=== PATIENT | female | born 1980 ===

== ENCOUNTER 2021-03-30 23:18 | Emergency (ER) | payer OTHER, SELFPAY ==
[2021-03-31 01:37] VITALS: BP 142/73; PULSE 81; RESP 20; O2SAT 98; BMI 46.8
--- NOTE | 2021-03-31 05:22 | ED.DENTAL ---
HPI - Dental/Oral General Chief complaint: Dental/Oral Stated complaint: jaw swollen, teeth pain Time Seen by Provider: 03/31/21 05:17 Source: patient Mode of arrival: ambulatory Limitations: no limitations History of Present Illness HPI Narrative: Patient comes emergency room complaining of gum pain in the left maxillary side. It has been ongoing for 2 days. Patient denies fever or chills. Related Data Previous Rx's Medication Instructions Recorded clindamycin HCl 300 mg PO TID 7 Days #21 cap 03/31/21 ketorolac 10 mg PO TID PRN 5 Days tab 03/31/21 Allergies Allergy/AdvReac Type Severity Reaction Status Date / Time Penicillins [PENICILLINS] Allergy Unknown UNKNOWN Unverified 07/02/20 19:22 Review of Systems Review of Systems: Constitutional : No Weight loss, No Fever, No Chills, No Night Sweats, No Fatigue, No Malaise ENT/Mouth : No Hearing loss, No Ear Pain, No Nasal Congestion, No Sinus Pain, No Hoarseness, No sore throat, No Rhinorrhea, No Swallowing Difficulty, complaining of dental pain left maxillary side Eyes: No Eye Pain, No Swelling, No Redness, No Foreign Body, No Discharge, No Vision Changes Cardiovascular : No Chest Pain, No SOB, No Dyspnea on Exertion, No Orthopnea, No Edema, No Palpitations Respiratory : No Cough, No Sputum, No Wheezing, No Smoke Exposure, No Dyspnea Gastrointestinal : No Nausea, No Vomiting, No Diarrhea, No Constipation, No abdominal Pain, No Hematochezia, No Melena Genitourinary : no irregular bleeding, No Dysuria, No Urinary Frequency, No Hematuria, No Urinary Incontinence, No Urgency, No Flank Pain, No Urinary Flow Changes, No Hesitancy Musculoskeletal : No joint pain, No Myalgias, No Joint Swelling Skin : No Skin Lesions, No rash Neuro : No Weakness, No Numbness, No Paresthesias, No Loss of Consciousness, No Dizziness, No Headache Psych : No Anxiety/Panic, No Depression, No SI/HI/AH/VH, No Social Issues, Heme/Lymph: No Bruising, No Bleeding,No Lymphadenopathy Endocrine : No Polyuria, No Polydipsia, No Temperature Intolerance PMFSH Past Medical History Medical History Hyperthyroidism Social History Social History Advance Directives: No Advance Directives Information Provided: No Patient : No Physical Exam Vital Signs: Vital Signs: Last Vital Signs Pulse 81 03/31/21 01:37 Resp 20 03/31/21 01:37 BP 142/73 H 03/31/21 01:37 Pulse Ox 98 03/31/21 01:37 Body Mass Index 46.8 Appearance: Alert. Oriented X3. No acute distress. Eyes: Pupils equal, round and reactive to light. ENT: Pharynx normal. Patient has pain to palpation over the gum on the left maxilla, mild swelling, no visualized abscess. Neck: Normal inspection. Neck supple. No lymph nodes noted. No crepitus CVS: Normal heart rate and rhythm. Pulses normal. Normal S1 and S2 Respiratory: No respiratory distress. Breath sounds normal. No Wheezing. No rales Abdomen: Soft and nontender. No rigidity. No distention. good BS x4 Skin: Skin warm and dry. Normal skin color. Normal skin turgor. Extremities: No lower extremity edema. No lower extremity edema. No Lacerations. No Rash Neuro: Oriented X 3. No motor deficit. No sensory deficit. Moving all extermities. No slurred speech. Course Course Course Narrative: Patient was given the 1st dose of antibiotic, clindamycin. Patient is allergic to penicillin. Patient was given IM Toradol. Patient instructed to follow-up with her dentist. Discharge Plan Discharge Clinical Impression: Pain, dental Patient Disposition: Home, Self-Care Instructions: Toothache (ED) Additional Instructions: Please follow-up with your primary care physician tomorrow. If you have any worsening or new symptoms, please return to the emergency room or call 911 Prescriptions: New clindamycin HCl 300 mg capsule 300 mg PO TID 7 Days Qty: 21 RF: 0 ketorolac 10 mg tablet 10 mg PO TID PRN (Reason: pain) 5 Days RF: 0
[2021-03-31] MEDS: Ketorolac Tromethamine 60 MG/2 ML VIAL IM (05:42)
== END 2021-03-31 05:51 | disposition home or self-care (01) ==
PROVIDERS: Emergency Provider Emergency Medicine
DX: K08.89 Other specified disorders of teeth and supporting structures (principal); Z88.0 Allergy status to penicillin
CPT/HCPCS: 96372; 99284; J1885

== ENCOUNTER 2021-12-22 21:28 | Emergency (ER) | payer OTHER, SELFPAY ==
--- NOTE | ~2021-12-22 | XR_ITS ---
EXAMINATION: XR KNEE, LEFT CLINICAL INFORMATION: Fall, knee pain. COMPARISON: None. TECHNIQUE: Two views of the left knee. FINDINGS: Age indeterminate avulsion of the tibial tuberosity. No other fractures. Mild medial compartmental joint space narrowing. Diffuse soft tissue swelling. No joint effusion. No unexpected foreign bodies. XR/XR knee LT 2V IMPRESSION: Age indeterminate avulsion fracture of the tibial tuberosity, correlate for point tenderness.
[2021-12-22 21:31] VITALS: BP 145/88; PULSE 90; RESP 16; TEMP 36.4; O2SAT 98; BMI 48.6
--- NOTE | 2021-12-22 21:40 | ED_ITS ---
HPI - Extremity Injury (Lower) General Chief Complaint: Extremity Injury, Lower Stated Complaint: fall/Knee pain Time Seen by Provider: 12/22/21 21:40 Source: patient Mode of arrival: ambulatory Limitations: no limitations History of Present Illness HPI Narrative: Patient is a 41 year old female presenting to the emergency department today with left knee pain. Patient states that last , on 12/16/2021, she slipped on black ice and landed on her left knee. Patient denies hitting her head in the incident. Patient denies any other injuries in the incident. Patient states that the pain feels achy and rates it at a 4/10. Patient denies any dizziness, lightheadedness, abdominal pain, nausea, vomiting, fever, chills, blurry vision, double vision, loss of vision, chest pain, difficulty breathing, shortness of breath, back pain, night sweats, pain with urination, increased urinary frequency, increased urinary urgency, blood in her urine or stool, syncope or a near syncopal episode, bowel incontinence, bladder incontinence, bowel retention, bladder retention, or any other complaints at this time. MD complaint: knee injury Onset (ago): day(s) (5) Injury: Left: knee Type of Injury: blunt Place: home Severity: mild Severity scale (1-10): 4 Relieving factors: nothing Exacerbating factors: nothing Context: fall and direct blow Other symptoms: none Related Data Previous Rx's Medication Instructions Recorded clindamycin HCl 300 mg capsule 300 mg PO TID 7 Days #21 cap 03/31/21 ketorolac 10 mg tablet 10 mg PO TID PRN 5 Days tab 03/31/21 Allergies Allergy/AdvReac Type Severity Reaction Status Date / Time Penicillins [PENICILLINS] Allergy Unknown UNKNOWN Unverified 07/02/20 19:22 Review of Systems Constitutional: Constitutional: Reports no additional constitutional complaints, Denies chills, Denies fever(s) and Denies night sweats Eyes: Eyes: Reports no additional eye complaints, Denies blurry vision, Denies change in vision, Denies diplopia, Denies eye discharge, Denies loss of vision and Denies eye pain ENT: Denies dizziness Cardiovascular: Cardiovascular: Reports no additional cardiovascular complaints, Denies chest pain, Denies lightheadedness, Denies Loss of Consciou sness and Denies dyspnea Respiratory: Respiratory: Reports no additional respiratory complaints and Denies dyspnea Gastrointestinal: Gastrointestinal: Reports no additional gastrointestinal complaints, Denies abdominal pain, Denies melena, Denies hematochezia, Denies change in bowel habits and Denies change in stool character Genitourinary: Genitourinary: Denies hematuria, Denies urinary frequency, Denies dysuria, Denies urinary incontinence, Denies urinary hesitancy and Denies urinary urgency Musculoskeletal: Musculoskeletal: Reports no additional musculoskeletal complaints, Denies numbness and Denies tingling Comments: left knee pain Neurologic: Denies dizziness, Denies loss of vision, Denies numbness and Denies tingling Psychiatric: Psychiatric: Reports no additional psychiatric complaints Endocrine: Endocrine: Reports no additional endocrine complaints Hematologic/Lymphatic: Hematologic/Lymphatic: Reports no additional hemat ologic/lymphatic complaints Allergic/Immunologic: Allergic/Immunologic: Reports no additional allergic/immunologic complaints [facility] Past Medical History Attestation statement: The following information was validated with the patient. Medical History Hyperthyroidism Social History Social History Alcohol intake: unknown Patient Tobacco Use Status: Former Tobacco user Advance Directives: No Advance Directives Information Provided: No Patient : No Physical Exam Vital Signs: Vital Signs: Last Vital Signs Temp 97.5 F 12/22/21 21:31 Pulse 84 12/22/21 21:50 Resp 16 12/22/21 21:50 BP 128/82 12/22/21 21:50 Pulse Ox 100 12/22/21 21:50 BMI result Body Mass Index 48.6 Const: General: cooperative, no acute distress, alert and awake Nutritional Appearance: well nourished Orientation/consciousness: patient oriented x3 Limitations: no limitations HENMT: Head: Yes normal to inspection and Yes atraumatic Ears: hearing grossly normal bilaterally and external ears normal General nose exam: Normal external nose present, no nasal discharge noted and no epistaxis Face and sinus: Yes normal facial exam, No abrasion and No laceration Mouth: Normal oral and palatal mucosa present, no drooling and no muffled voice Eyes: General: appearance normal, both eyes and all related structures Periorbital: periorbital findings normal Eyelids: Yes eyelids normal Conjunctivae: conjunctivae normal Pupils: Equal, round and reactive pupils present EOM: EOMs intact bilaterally Neck: Neck: Yes normal visual inspection, Yes full ROM and Yes no lymphadenopathy Chest: Chest palpation & inspection: normal inspection of the chest Resp: Effort & Inspection: normal respiratory effort and able to speak in complete sentences GI: Inspection: Yes normal to inspection Neuro: General: patient oriented x3 and moves all extremities Cranial nerves: Yes Equal, round and reactive pupils present Cognition (Neuro): normal cognition Motor exam (neuro): 5/5 motor strength present throughout Sensory Exam: Normal double simultaneous stimulation for sensation Coordination: [id number] test normal Extrem: Other: tenderness to palpation of the lateral left knee General: Yes normal to inspection, Yes full ROM and Yes capillary refill normal Psych: Appearance: grossly normal Mental Status: mental status grossly normal Affect: normal affect Attitude: cooperative Thought process: Normal thought process present Thought content: Normal thought content present Insight: Good insight present (Psych) MDM - Extremity Injury (Lower) MDM Narrative Medical decision making narrative: Patient is a 41 year old female presenting to the emergency department today with left knee pain. Patient's physical exam showed tenderness to palpation of the left lateral knee but was otherwise unremarkable. Patient's ROM, circulation, and sensation were intact to the left lower extremity. Patient's left knee x-ray showed a tibial avulsion fracture. I explained my physical exam findings as well as all test results to the patient. I answered all questions asked by the patient. Patient was placed in a left knee immobilizer and trained to use crutches, without incident. Patient's PMS was intact prior to and after the immobilizer placement. I stressed the importance of the patient taking her medication as prescribed. I stressed the importance of the patient following up with her primary care provider and an orthopedic provider. I stressed the importance of the patient returning to the emergency department immediately if her symptoms were to worsen or if she were to develop any dizziness, shortness of breath, difficulty breathing, chest pain, blurry vision, loss of vision, nausea, vomiting, abdominal pain, fever, chills, back pain, or any other complaints. Patient verbalized agreement and understanding with this treatment plan and discharge. Differential Diagnosis Differential diagnosis: Likely acute internal derangement of knee (tibial fracture) and fracture of femur Medical Records Attestation: I reviewed the patient's medical records. Imaging Data Left knee x-ray: Attestation: I personally reviewed and interpreted this imaging study as follows: Radiologist's impression: EXAMINATION: XR KNEE, LEFT CLINICAL INFORMATION: Fall, knee pain.? COMPARISON: None.? TECHNIQUE: Two views of the left knee. FINDINGS: Age indeterminate avulsion of the tibial tuberosity. No other fractures. Mild medial compartmental joint space narrowing. Diffuse soft tissue swelling. No joint effusion. No unexpected foreign bodies XR/XR knee LT 2V IMPRESSION: Age indeterminate avulsion fracture of the tibial tuberosity, correlate for point tenderness. ? Dictated By: Samra Alford Signed By: Electronically signed by Samra? Rocío 12/22/21 2220 Procedures Orthopedic Splinting/Casting Injury #1: Side: left Lower Extremity Injury Location: knee Lower Extremity Immobilizer: knee immobilizer Other Orthopedic Equipment: crutches Discharge Plan Discharge Clinical Impression: Closed tibial fracture Patient Disposition: Home, Self-Care Instructions: Leg Fracture (ED), Crutch Instructions (ED) Additional Instructions: Call to schedule a follow up appointment with an Orthopedic provider. Follow up with your primary care provider. Return to the emergency department immediately if your symptoms worsen or if you develop any dizziness, shortness of breath, difficulty breathing, chest pain, blurry vision, loss of vision, nausea, vomiting, abdominal pain, fever, chills, back pain, or any other complaints. Prescriptions: No Action clindamycin HCl 300 mg capsule 300 mg PO TID 7 Days Qty: 21 0RF ketorolac 10 mg tablet 10 mg PO TID PRN (Reason: pain) 5 Days 0RF Rx Instructions: Do not use ibuprofen with this medication, only Tylenol if needed. Referrals: Eugene Henson MD [Physician] - 2 days Physician,Mark Donovan [Primary Care Provider] - 2 days (Follow up with your PCP.) Stand Alone Forms: Work/School Release Print Language: Turkish
[2021-12-22 21:50] VITALS: BP 128/82; PULSE 84; RESP 16; O2SAT 100
== END 2021-12-22 22:42 | disposition home or self-care (01) ==
PROVIDERS: Emergency Provider Emergency Medicine Emergency Medical Services
DX: S82.202A Unspecified fracture of shaft of left tibia, initial encounter for closed fracture (principal); W00.0XXA Fall on same level due to ice and snow, initial encounter; Y93.9 Activity, unspecified; Y92.410 Unspecified street and highway as the place of occurrence of the external cause; Y99.9 Unspecified external cause status; Z79.899 Other long term (current) drug therapy; Z87.891 Personal history of nicotine dependence
CPT/HCPCS: 29505; 73560; 99283

== ENCOUNTER → 2021-12-27 12:46 | Outpatient (BNVA) | payer OTHER, SELFPAY | PROVIDERS: Visit Provider Physician Assistant | DX: S80.02XA Contusion of left knee, initial encounter (principal) | CPT/HCPCS: 99202 ==

== ENCOUNTER 2022-01-17 11:59 | Outpatient (REF) | payer OTHER, SELFPAY | END 2022-01-17 12:00 | disposition home or self-care (01) | LOC: HO.HOSX 11:59 | PROVIDERS: Visit Provider Physician Assistant | DX: Z13.89 Encounter for screening for other disorder (principal) ==

== ENCOUNTER 2022-01-24 08:42 | Outpatient (REF) | payer OTHER, SELFPAY | END 2022-01-24 08:43 | disposition home or self-care (01) | LOC: HO.HOSX 08:42 | PROVIDERS: Visit Provider Physician Assistant | DX: Z13.89 Encounter for screening for other disorder (principal) ==

== ENCOUNTER 2022-02-07 08:14 | Outpatient (REF) | payer OTHER, SELFPAY | END 2022-02-07 08:15 | disposition home or self-care (01) | LOC: HO.HOSX 08:14 | PROVIDERS: Visit Provider Physician Assistant | DX: Z13.89 Encounter for screening for other disorder (principal) ==

== ENCOUNTER → 2022-08-22 13:03 | Outpatient (BNVA) | payer OTHER, SELFPAY | PROVIDERS: PCP Internal Medicine; Visit Provider Physician Assistant | DX: Z11.0 Encounter for screening for intestinal infectious diseases (principal); E66.01 Morbid (severe) obesity due to excess calories; E05.90 Thyrotoxicosis, unspecified without thyrotoxic crisis or storm; E16.2 Hypoglycemia, unspecified; D35.2 Benign neoplasm of pituitary gland; F31.9 Bipolar disorder, unspecified; G47.33 Obstructive sleep apnea (adult) (pediatric); F41.9 Anxiety disorder, unspecified; F32.A Depression, unspecified; Z99.89 Dependence on other enabling machines and devices; Z68.43 Body mass index [BMI] 50.0-59.9, adult | CPT/HCPCS: 83013; 99202; 99211; 99212 ==

== ENCOUNTER 2022-08-22 16:24 | Outpatient (REF) | payer OTHER, SELFPAY ==
[2022-08-24 12:48] LABS: H Pylori Breath Test Negative (Negative)
== END 2022-08-22 16:25 | disposition home or self-care (01) ==
LOC: HO.LNP 16:24
PROVIDERS: Visit Provider Physician Assistant
DX: Z13.89 Encounter for screening for other disorder (principal)
CPT/HCPCS: 83013

== ENCOUNTER → 2022-10-26 14:47 | Outpatient (BNVA) | payer OTHER, SELFPAY | PROVIDERS: PCP Internal Medicine; Referring Provider Internal Medicine; Visit Provider Physician Assistant | DX: E66.01 Morbid (severe) obesity due to excess calories (principal); Z68.42 Body mass index [BMI] 45.0-49.9, adult; G47.33 Obstructive sleep apnea (adult) (pediatric); F31.9 Bipolar disorder, unspecified; Z99.89 Dependence on other enabling machines and devices | CPT/HCPCS: 99212 ==

== ENCOUNTER 2022-10-28 08:20 | Outpatient (REF) | payer OTHER, SELFPAY ==
--- NOTE | ~2022-10-28 | XR_ITS ---
EXAMINATION: XR CHEST CLINICAL INFORMATION: Morbid obesity. COMPARISON: Chest x-ray 08/22/2019 TECHNIQUE: 2 views of the chest were obtained. FINDINGS: No significant abnormality is noted involving the heart, lungs, mediastinum, bony thorax or soft tissues. XR/XR chest 2V IMPRESSION: Unremarkable examination.
--- NOTE | 2022-10-28 08:26 | ECG_ITS ---
Test Reason : OBESITY Blood Pressure : / mmHG Vent. Rate : 101 BPM Atrial Rate : 101 BPM P-R Int : 164 ms QRS Dur : 094 ms QT Int : 360 ms P-R-T Axes : 055 110 012 degrees QTc Int : 466 ms Sinus tachycardia Right axis deviation Abnormal ECG When compared with ECG of 27-NOV-2017 05:27, Premature ventricular complexes are no longer Present Vent. rate has increased BY 36 BPM QRS axis Shifted right Referred By: Margaret Blevins Electronically Signed By:Dangelo Abrams
[2022-10-28 08:40] LABS: MANUAL DIFF FLAG NO
[2022-10-28 09:14] LABS: Basophils Absolute Auto 0.1 X10*3/uL (0.0-0.2); Basophils Percent Auto 1.6 % (0-2); Eosinophils Absolute Auto 0.2 X10*3/uL (0.0-0.4); Eosinophils Percent Auto 2.8 % (0-4); Hematocrit 41.5 % (37.0-47.0); Hemoglobin 13.3 g/dl (12.0-16.0); Imm Gran Abs Auto 0.03 X10*3/uL (0.00-0.03); Imm Gran Pct Auto 0.4 % (0.0-0.4); Mean Corpuscular Hemoglobin 28.5 pg (27.0-33.0); Mean Corpuscular Volume 89.1 fL (80.0-98.0); Mean Platelet Volume 10.3 fL (9.4-12.3); Monocytes Absolute Auto 0.5 X10*3/uL (0.1-1.2); Monocytes Percent Auto 6.6 % (2-11); Neutrophils Absolute Auto 5.1 x10*3/uL (2.0-8.3); Neutrophils Percent Auto 63.6 % (45-73); Platelet Count 306 X10*3/uL (160-400); Red Blood Count 4.66 X10*6/uL (4.20-5.50); Red Cell Distribution Width 13.7 % (11.0-16.0); White Blood Count 7.9 X10*3/uL (4.8-10.8)
[2022-10-28 09:22] LABS: Estimated Average Glucose 128 mg/dL; Hemoglobin A1C 148.9232 umol/L; Hemoglobin A1c % 6.1 %
[2022-10-28 09:42] LABS: Alanine Aminotransferase 35 U/L (0-31); Albumin Level 4.5 g/dL (3.5-5.0); Alkaline Phosphatase 90 U/L (39-117); Anion Gap 17 (12-20); Aspartate Amino Transferase 27 U/L (5-31); Bilirubin Total 0.5 mg/dL (0.0-1.0); Blood Urea Nitrogen 15 mg/dL (9-16); C Reactive Protein 0.85 mg/dL (< or = 0.50); Calcium 9.6 mg/dL (8.4-10.2); Carbon Dioxide 25 mmol/L (22-29); Chloride 100 mmol/L (96-108); Cholesterol 264 mg/dL; Estimated Glomerular Filt Rate 58; Glucose Random 110 mg/dL (60-115); HDL Cholesterol 64 mg/dL; Iron 77 mcg/dL (30-160); LDL Cholesterol Calculated 174 mg/dl; Percent Iron Saturation 25 % (15-50); Potassium 4.5 mmol/L (3.3-5.1); Sodium 137 mmol/L (135-145); Total Iron Binding Capacity 308 mcg/dL (228-428); Total Protein 7.9 g/dL (6.5-8.0); Triglycerides 130 mg/dL; Unsaturated Iron Binding 231 ug/dL
[2022-10-28 10:03] LABS: Ferritin 106 ng/mL (10-250); Insulin 24 uU/mL (2-29); Vitamin D 25-OH Total 17.5 ng/mL (>30)
[2022-10-28 10:09] LABS: Folate 14.8 ng/mL (> or = 4.0); Vitamin B12 754 pg/mL (200-900)
[2022-10-31 13:24] LABS: Calcium (PTHI) 9.7 mg/dL (8.6-10.2); PTHI 91 pg/mL (16-77)
[2022-11-01 15:18] LABS: Zinc 79 mcg/dL (60-130)
[2022-11-03 08:48] LABS: Vitamin A 53 mcg/dL (38-98)
[2022-11-04 12:58] LABS: Vitamin B1 14 nmol/L (8-30)
== END 2022-10-28 08:21 | disposition home or self-care (01) ==
LOC: HO.LAB 08:20
PROVIDERS: Visit Provider Physician Assistant
DX: E66.01 Morbid (severe) obesity due to excess calories (principal); E05.90 Thyrotoxicosis, unspecified without thyrotoxic crisis or storm; E16.2 Hypoglycemia, unspecified; D35.2 Benign neoplasm of pituitary gland; F31.9 Bipolar disorder, unspecified; G47.33 Obstructive sleep apnea (adult) (pediatric); Z99.89 Dependence on other enabling machines and devices
CPT/HCPCS: 36415; 71046; 80053; 80061; 82306; 82607; 82728; 82746; 83036; 83525; 83540; 83970; 84425; 84443; 84590; 84630; 85025; 86140; 93005

== ENCOUNTER → 2022-11-03 10:52 | Outpatient (REF) | payer OTHER, SELFPAY ==
--- NOTE | 2022-11-03 10:56 | CA_ITS ---
Transthoracic Echocardiogram Patient (Last, First, Middle): Sulma Peres, Gender: Female Date of : 1980 Age: 42 Procedure Date: 11/03/2022 Procedure Type: Transthoracic Echocardiogram Location: OP Height: 172.72 cm Weight: 141.98 kg BSA: 2.47 m2 Heart Rate: bpm BP: 125 / 70 mmHg Marina Porter: TRINITY Sykes MD: Margaret Blevins PA-C E Business Manager: Scooter Carias MD Symptoms: R94.31 - Abnormal electrocardiogram [ECG] [EKG] Study Quality: Technically Difficult, contrast ECG Rhythm: Sinus Conclusions: - 1. Normal LV systolic function and diastolic function 2. Limited visualization of cardiac valves with normal cardiac valvular Dopplers 3. No gross pericardial effusion Findings Procedure Information Contrast agent, definity, is being given per protocol without apparent complications. Left Ventricle Normal left ventricular size, thickness, and systolic function. The visually estimated ejection fraction is between 55-60%. Spectral Doppler is indicative of a normal filling pattern. Right Ventricle The right ventricle was not well visualized. Atria The left atrium is normal in size. Interatrial shunt cannot be excluded. The right atrium was not well visualized. Aortic Valve The aortic valve was not well visualized. There is no aortic valve stenosis. There is no aortic valve regurgitation. Mitral Valve There is mild anterior mitral leaflet thickening. There is trace mitral valve regurgitation. There is no mitral valve stenosis. Pulmonic Valve The pulmonic valve was not well visualized. Tricuspid Valve The tricuspid valve was not well visualized. Tricuspid regurgitation envelope is inadequate for calculation of right ventricular systolic pressure. Great Vessels The aorta was not well visualized. The pulmonary artery was not well visualized. Venous The inferior vena cava is normal in size and collapses greater than 50% with inspiration. Pericardium/Pleural There is no evidence of pericardial effusion. Prior Study Comparison No prior study available for comparison. Measurements 2D Linear Measurements IVSd: 1.21 0.6-0.9/0.6-1.0 cm LVIDd: 5.77 3.9-5.3/4.2-5.9 cm LVIDd Index: 2.34 2.4-3.2/2.2-3.1 cm/m2 LVIDs: 3.59 2.0-3.6 cm LVPWd: 1.14 0.7-1.1 cm LA Diam: 3.50 2.7-3.8/3.0-4.0 cm LAIDs Index: 1.42 1.5-2.3 cm/m2 LV Mass: 357.02 67-162/88-224 g LV Mass Index: 144.54 43-95/49-115 g/m2 LVOT Diam: 2.40 3.0+(-)1.3 cm 2D Systolic Function EF 4C: 56.20 >55% EF 2C: 55.40 >55% Mitral Valve MV Pk E: 0.64 MV PK A: 0.61 MV Decel Time: 226.00 E/A: 1.00 E'Lateral: 7.40 E'Medial: 4.90 E/E' Med: 13.00 E/E' Lat: 8.60 PHT: 66.00 MVA PHT: 3.33 Decel Dickens: 2.83 Aortic Valve AoV Pk Nii: 1.32 AoV Mn Nii: 0.89 AoV VTI: 0.26 AoV Pk Grad: 7.00 Aov Mn Grad: 4.00 CHRISTOPHER Cont.VTI: 2.84 LVOT LVOT Pk Nii: 0.80 LVOT Mn Nii: 0.53 LVOT VTI: 0.16 LVOT Pk Grad: 3.00 LVOT Mn Grad: 1.00 LVOT Diam: 2.40 LVOT Area: 4.52 Diastolic Function MV Pk E: 0.64 MV Pk A: 0.61 E/A: 1.00 E'Medial: 4.90 E/E' Med: 13.00 E' Laterial: 7.40 E/E' Lat: 8.60 Right Ventricle TAPSE (mm): 21.90 TVS' Nii: 10.30 Great Vessels Aorta Sinus of Valsalva: 3.26 2.0-3.[address] [place]: 2.91 1.7-3.4 cm Ao Asc: 3.00 2.1-3.4 cm Updated in Other Vendor System with Status of Final Scooter Carias MD electronically signed on 11/03/2022 4:21:36 PM with status of Final
== END ==
LOC: HO.CARD 10:52
PROVIDERS: Visit Provider Physician Assistant
DX: Z01.818 Encounter for other preprocedural examination (principal); R06.02 Shortness of breath; R94.31 Abnormal electrocardiogram [ECG] [EKG]
CPT/HCPCS: 93306; Q9957

== ENCOUNTER 2023-04-10 10:42 | Outpatient (REF) | payer OTHER, SELFPAY ==
--- NOTE | ~2023-04-10 | XR_ITS ---
EXAMINATION: XR HAND, RIGHT CLINICAL INFORMATION: Primary osteoarthritis, unspecified hand COMPARISON: None available. TECHNIQUE: PA, lateral, and oblique views of the right hand. FINDINGS: No acute fracture or dislocation. There is IP joint space narrowing and MCP joint space narrowing particularly at the first and fifth digits. No erosive process seen. Carpus grossly intact. Minimal ossicle adjacent to the lateral aspect of the scaphoid on one view. XR/XR hand RT min 3V IMPRESSION: No acute process. Degenerative changes as described.
== END 2023-04-10 10:43 | disposition home or self-care (01) ==
LOC: HO.HMGCX 10:42
PROVIDERS: PCP Internal Medicine; Visit Provider Internal Medicine
DX: M19.041 Primary osteoarthritis, right hand (principal)
CPT/HCPCS: 73130

== ENCOUNTER → 2023-05-17 09:00 | Outpatient (BNV) | payer OTHER, SELFPAY | PROVIDERS: Visit Provider Psychiatry & Neurology Psychiatry | DX: F43.10 Post-traumatic stress disorder, unspecified (principal); F31.81 Bipolar II disorder | CPT/HCPCS: 90792; 99213 ==

== ENCOUNTER 2023-05-26 08:15 | Outpatient (RCR) | payer OTHER, SELFPAY ==
[2023-05-15 13:13] VITALS: BP 126/64; PULSE 74; TEMP 36.3
[2023-05-15 13:16] VITALS: BMI 50.8
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
--- NOTE | 2023-05-18 15:49 | HO.PHP ---
Clients case was reviewed and opened today in treatment team.
[2023-05-19 09:31] VITALS: BP 110/70; PULSE 92
--- NOTE | 2023-05-19 13:51 | P.PNPSP_ITS ---
Subjective Subjective Date of Service: 05/19/23 Reason For Visit: bipolar II Medical Problems Affecting Mental Status: No Interim History: As per evaluation 05/17/23: Presents with clear history of bipolar 2 disorder currently major depressive episode.? Also comorbid PTSD.? There is significant sleep disturbance and PTSD symptoms.? Would benefit from trazodone 150 mg at bedtime and prazosin 1 to 2 mg at bedtime.? We will send a 5-day prescription and follow-up on 05/19/2023 regarding same.? To treat underlying cause we will increase Zoloft to 100 mg for depression and PTSD and Trileptal to 300 mg to prevent any mood destabilization. Today, reports that trazodone 150 mg and prazosin 1 mg at bedtime has been very helpful. Slept through the night and no nightmares. Overall feeling more rested, but slightly groggy. Tolerating Zoloft 100 mg and Trileptal 300 mg. Overall we discussed maintaining current regimen of increased Zoloft, increased Trileptal and newly added trazodone and prazosin. If grogginess continues, may either lower trazodone or lower Trileptal dose. We will send 30-day prescription for trazodone and prazosin as patient will run out of same after the weekend. Medication Compliance: Yes Side effects from medications: No Attending Groups: Yes Review of Systems Acute medical concerns: No Review of Systems Review of Systems Yes all other systems are reviewed and are negative Mental Status Exam Mental Status Exam Narrative: Pleasant. Engaged. Fairly presented. Much brighter affect today. No SI. No HI. No agitation. Less psychomotor retardation. No psychosis. Insight and judgment good Diagnostics Vital Signs (24Hr): Vital Signs - 24 hr 05/19/23 09:31 Pulse Rate 92 Blood Pressure 110/70 BMI result Body Mass Index 50.8 Assessment & Plan Assessment & Plan (1) PTSD (post-traumatic stress disorder): Status: Acute Code(s): F43.10 - Post-traumatic stress disorder, unspecified (2) Bipolar 2 disorder, major depressive episode: Status: Acute Code(s): F31.81 - Bipolar II disorder Plan Today, reports that trazodone 150 mg and prazosin 1 mg at bedtime has been very helpful. Slept through the night and no nightmares. Overall feeling more rested, but slightly groggy. Tolerating Zoloft 100 mg and Trileptal 300 mg. Overall we discussed maintaining current regimen of increased Zoloft, increased Trileptal and newly added trazodone and prazosin. If grogginess continues, may either lower trazodone or lower Trileptal dose. We will send 30-day prescription for trazodone and prazosin as patient will run out of same after the weekend. Patient educated on: medication risk/benefits and therapeutic strategies Informed Consent: understands Reason for contiued partial hosp. stay Substantial Risk for: rapid decompensation Certification I certify that partial hospital treatment is medically necessary due to the symptoms and problems resulting from the patient's mental illness and the failure to treat the patient at the partial hospital level of care would likely result in the patient requiring inpatient psychiatric care which could not be prevented at a less intensive level of care. Total time managing care of this patient today 20 minutes. Discharge Plan Discharge Attending provider: Geovany Daniel Medications: New prazosin 1 mg Capsule 1 - 2 mg PO BEDTIME 5 Days Qty: 10 0RF Protocol: Hold for SBP< HOLD for SBP < : 90 trazodone 150 mg tablet 150 mg PO BEDTIME 5 Days Qty: 5 0RF No Action hydroxyzine pamoate 50 mg capsule 50 mg PO BID PRN (Reason: Anxiety) Patient Comments: Last filled 10/04/22. Patient stated she continues to take it PRN. albuterol sulfate [ProAir HFA] 90 mcg/actuation HFA aerosol inhaler 2 puff INHALATION QID PRN (Reason: wheezing) sertraline 50 mg tablet 50 mg PO DAILY fluticasone propionate [Flovent HFA] 110 mcg/actuation HFA aerosol inhaler 1 puff INHALATION BID oxcarbazepine [Trileptal] 150 mg tablet 150 mg PO BID Patient Comments: Patient only taking once a day. Medication education provided. methimazole 10 mg tablet 10 mg PO DAILY Patient Comments: Patient reports she has not taken for 2-3 months. She called in a new prescription filled today on 05/15/23. Telehealth Telehealth Location of provider rendering services: other ([facility]) Location of patient: other ([facility]) Patient Identification confirmed using: Name, : Yes Telehealth method: video Patient verbally consented to treatment: Yes Minutes spent on Phone/Video with Pt.: 15
--- NOTE | 2023-05-23 14:30 | HO.PHP ---
[facility] staff contacted Sulma due to her not showing up for the last group of the day. Sulma had apologized and mentioned that she is safe but had to leave due to a family medical emergency at home. Sulma voiced that she will be at program tomorrow. [facility] staff was receptive.
--- NOTE | 2023-05-25 09:26 | PC.NURSE ---
Sulma is not in today as she has an appointment with the Recycling Specialist. She plans on being in the program tomorrow.
--- NOTE | 2023-05-26 14:20 | HO.PHP ---
PHP staff contacted Sulma's OP therapist to inform her that Sulma discharged from services.
== END 2023-05-26 23:59 | disposition home or self-care (01) ==
LOC: HO.PHPA 08:15
PROVIDERS: Visit Provider Psychiatry & Neurology Psychiatry
DX: F31.81 Bipolar II disorder (principal); F41.1 Generalized anxiety disorder
CPT/HCPCS: 90791; 90853

== ENCOUNTER → 2023-10-20 13:15 | Outpatient (BNV) | payer OTHER, SELFPAY | PROVIDERS: Visit Provider Psychiatry & Neurology Psychiatry | DX: F31.81 Bipolar II disorder (principal); F41.1 Generalized anxiety disorder; F41.0 Panic disorder [episodic paroxysmal anxiety]; F43.10 Post-traumatic stress disorder, unspecified | CPT/HCPCS: 90792; 99213 ==

== ENCOUNTER 2023-10-24 13:00 | Outpatient (RCR) | payer OTHER, SELFPAY ==
--- NOTE | 2023-10-05 14:43 | HO.PHP ---
The client's case was reviewed and opened in treatment team.
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
[2023-10-06 11:36] VITALS: BMI 50.2
[2023-10-06 12:37] VITALS: BP 137/95; PULSE 81; TEMP 36.7
--- NOTE | 2023-10-06 15:33 | PC.ADMIT ---
Patient is a 43 year old female who was referred to [facility] by her therapist d/t increased depression and anxiety. 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 She has a trauma history and feels she is being triggered at work and this is new for her as she has been able to handle this in the past. Also stated she is feeling overwhelmed at home as her has neuropathy and uses a cane and falls at times. She is working on getting him a VNA and SALES COACH as he has had this in the past which was helpful. Patient had a recent hospitalization at [facility] after she initially self presented to the ER with depression and SI with a plan to overdose at the time. She was discharged from the unit on 10/02/23. Patient is alert and oriented x4. Calm and cooperative. Presented with depressed and anxious mood. Reports history of self harm by cutting her leg superficially and reports the last time she cut herself was prior to inpatient LOC. Denied SI or thoughts to harm herself. She was given a copy of her safety plan if needed. Medications reconciled with patient, [facility] in patient discharge medication list, patient's pharmacy. Confirmed with Dr Cooper medication changes that she made with patient yesterday. Patient reports she uses ETOH on occasion. Report drinking 1-8 beers and rarely will drink up to 8 beers and Wine 1-5 and rarely reports she has up to 5 drinks.
--- NOTE | 2023-10-10 10:32 | HO.PHP ---
Client did not show up for programming today. Pt was called at her home number to assess for safety at roughly 9:35, there was no answer. A voicemail was left informing pt of protocol and to call back within 15 minutes to check in, [facility] phone number was provided. Pt did not call back. Pt was called again at roughly 9:50, still no answer so pt's emergency contact, Ann Garay (pt's mother) was called. Ann did not answer, a voicemail was left requesting she please contact Sulma and to respond back to [facility] within 15 minutes. Pt's emergency contact did not respond to the voicemail. At roughly 10:10, this typewriter assembler contacted the [place] [employer] to do a wellness check to her residence, [address] [place] [address] [place] [address].
--- NOTE | 2023-10-10 14:07 | HO.PHP ---
[facility] Police contacted by headline writer at 12:30pm to follow-up on the wellness check for Sulma. Informed that Pt was at home during the wellness check and visual contact was made, [facility] police reports Sulma was safe and stated she forgot to call the program this morning. Automatic Wheel Line Operator called pt again at 2:05 pm to confirm her attendance for tomorrow and reminded of attendance policy. Pt reports she had a stomach bug but she is feeling better and will be in tomorrow.
--- NOTE | 2023-10-19 09:34 | PC.NURSE ---
Sulma did not show up to the program this morning. I called Sulma and she stated she is going to the hospital as she tripped on the stairs and hurt her hand. She stated he mother is going to bring her. She plans on coming to the program tomorrow.
--- NOTE | 2023-10-20 20:10 | HO.PHPPROGNO ---
Subjective Subjective Date of Service: 10/20/23 Reason For Visit: bipolar Interim History: Patient seen for follow-up today. No acute issues or concerns, She reports benefitting from addition of quetiapine 25 mg BID which she has been taking regularly in AM and afternoon. I feel better less anxiety. At it's worse, somatic anxiety at a 4 out of 10, before was at an 8. She denies any panic attacks, last one over a month ago. She currently denies any worries. MOod is good, denies any depressive symptoms, hopelessness or SI. Can not recall last SI thoughts. Sleep intact at 7 or 8 hours. Tolerating prazosin 1 mg, denies any sleep disturbance. Energy is good. Occasionally takes trazodone 100 mg for sleep about 3x/month only. Continues on Trileptal 150 mg BID, Zoloft 100 mg qd, prazosin. Med compliant, denies any adverse effects. Drinks alcohol socially in moderation, denies substance use. She is unsure of date of upcoming psych provider appointemnt, her provider is currently on vacation but believes it is in October. She will try calling the office today to get appointment set. Medication Compliance: Yes Side effects from medications: No Attending Groups: Yes Review of Systems Acute medical concerns: No Mental Status Exam Mental Status Exam Narrative: Pleasant. Engaged. Groomed. Cooperative. superificial. No neuromotor retardation or agitation. Mood improved, brighter affect today. No SI. No HI. Insight and judgment fair but adequate Diagnostics Vital Signs (24Hr): BMI result Body Mass Index 50.2 Assessment & Plan Assessment & Plan (1) Bipolar 2 disorder, major depressive episode: Status: Acute Code(s): F31.81 - Bipolar II disorder (2) Generalized anxiety disorder with panic attacks: Status: Acute Code(s): F41.1 - Generalized anxiety disorder; F41.0 - Panic disorder [episodic paroxysmal anxiety] (3) PTSD (post-traumatic stress disorder): Status: Acute Code(s): F43.10 - Post-traumatic stress disorder, unspecified Plan tolerating and benefitting from Seroquel at 25 mg BID scheduled she has not been utilizing PRN hydroxyzine, minimal amount of trazodone at 100 mg may consider d/c the hydroxyzine, trazodone w OP provider to limit polypharm trazodone 150, prazosin have been discont continue other regular medications continue to monitor anticipate discharge Monday Patient educated on: diagnosis and medication risk/benefits Informed Consent: understands Reason for contiued partial hosp. stay Substantial Risk for: med/psych decompensation Certification I certify that partial hospital treatment is medically necessary due to the symptoms and problems resulting from the patient's mental illness and the failure to treat the patient at the partial hospital level of care would likely result in the patient requiring inpatient psychiatric care which could not be prevented at a less intensive level of care. Total time managing care of this patient today __30__ minutes. Discharge Plan Discharge Attending provider: Lisa Cooper Medications: New quetiapine 25 mg tablet 25 mg PO BID 30 Days Qty: 60 0RF trazodone 100 mg tablet 100 mg PO BEDTIME PRN (Reason: sleep) Qty: 14 0RF Continued hydroxyzine pamoate 50 mg capsule 50 mg PO TID PRN (Reason: Anxiety) Patient Comments: Last filled 10/04/22. Patient stated she continues to take it PRN. fluticasone propionate [Flovent HFA] 110 mcg/actuation HFA aerosol inhaler 1 puff INHALATION BID metformin 500 mg tablet extended release 24 hr 1,000 mg PO BID sertraline 100 mg tablet 100 mg PO DAILY 30 Days Qty: 30 0RF oxcarbazepine [Trileptal] 150 mg tablet 150 mg PO BID 15 Days Qty: 30 0RF methimazole 10 mg tablet 10 mg PO DAILY Patient Comments: Patient reports she takes daily. Discontinued prazosin 1 mg capsule 1 mg PO BEDTIME 30 Days Qty: 30 0RF trazodone 150 mg tablet 150 mg PO BEDTIME 30 Days Qty: 30 0RF Patient Comments: Patient stated she takes prn. Dr. Cooper aware. No Action melatonin 3 mg tablet 3 mg PO BEDTIME PRN (Reason: insomnia)
--- NOTE | 2023-10-23 09:22 | PC.NURSE ---
Sulma did not show up to the program this morning. I called Sulma, she did not answer her phone. I was not able to leave a message and her VM has not been set up. I spoke to Sulma's emergency contact, her mother Ann, who stated she will give her a call and have her call me when she gets a hold of her. Ann stated she spoke to Zahraa yesterday and she went to voodoo over the weekend.
--- NOTE | 2023-10-23 10:10 | PC.NURSE ---
Sulma's mother Ann called me back and stated she spoke to Sulma who stated she overslept today. Stated the medication makes her groggy. I told Ann to have Sulma call me and she stated she would.
--- NOTE | 2023-10-24 23:11 | HO.PHPPROGNO ---
Subjective Subjective Date of Service: 10/24/23 Reason For Visit: bipolar Interim History: Patient seen for follow-up, anticipating discharge at the end of program today.? Doing good. I feel ready . Patient reports no acute issues or concerns. Medication compliant, medications well-tolerated. Denies any adverse effects. Requests refills be sent to [facility]. Therapy weekly at [facility]. 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 She is on [facility] until 10/30. Denies any hopelessness or SI. Denies thoughts of harming self or others at this time. Denies any aggressive ideation or HI. Denies any paranoia or AH or VH. Sleep, appetite, energy stable. Mental Status Exam Mental Status Exam Narrative: Pleasant. Engaged. Groomed. Cooperative. superificial. No neuromotor retardation or agitation. Mood improved, brighter affect today. No SI. No HI. Insight and judgment fair but adequate Diagnostics Vital Signs (24Hr): BMI result Body Mass Index 50.2 Assessment & Plan Assessment & Plan (1) Bipolar 2 disorder, major depressive episode: Status: Acute Code(s): F31.81 - Bipolar II disorder (2) Generalized anxiety disorder with panic attacks: Status: Acute Code(s): F41.1 - Generalized anxiety disorder; F41.0 - Panic disorder [episodic paroxysmal anxiety] (3) PTSD (post-traumatic stress disorder): Status: Acute Code(s): F43.10 - Post-traumatic stress disorder, unspecified Plan [facility]charge from [facility] Continue with current medication regime Will defer further medication management to outpatient provider Patient to continue treatment as per dispo plan Patient educated on: diagnosis and medication risk/benefits Informed Consent: understands Reason for contiued partial hosp. stay Substantial Risk for: stable for discharge Certification I certify that partial hospital treatment is medically necessary due to the symptoms and problems resulting from the patient's mental illness and the failure to treat the patient at the partial hospital level of care would likely result in the patient requiring inpatient psychiatric care which could not be prevented at a less intensive level of care. Total time managing care of this patient today __30__ minutes. Discharge Plan Discharge Attending provider: Lisa Cooper Medications: New trazodone 50 mg tablet 50 mg PO BEDTIME PRN (Reason: sleep) Qty: 20 0RF Continued fluticasone propionate [Flovent HFA] 110 mcg/actuation HFA aerosol inhaler 1 puff INHALATION BID metformin 500 mg tablet extended release 24 hr 1,000 mg PO BID quetiapine 25 mg tablet 25 mg PO BID 30 Days Qty: 60 0RF oxcarbazepine [Trileptal] 150 mg tablet 150 mg PO BID 30 Days Qty: 60 0RF sertraline 100 mg tablet 100 mg PO DAILY 30 Days Qty: 30 0RF methimazole 10 mg tablet 10 mg PO DAILY 30 Days Qty: 30 0RF hydroxyzine pamoate 50 mg capsule 50 mg PO TID PRN (Reason: Anxiety) Qty: 30 0RF Discontinued prazosin 1 mg capsule 1 mg PO BEDTIME 30 Days Qty: 30 0RF trazodone 150 mg tablet 150 mg PO BEDTIME 30 Days Qty: 30 0RF Patient Comments: Patient stated she takes prn. Dr. Cooper aware. melatonin 3 mg tablet 3 mg PO BEDTIME PRN (Reason: insomnia) Stand Alone Forms: Patient Portal Discharge page Patient Education: Bipolar Disorder (DC)
== END 2023-10-24 23:59 | disposition home or self-care (01) ==
LOC: HO.PHPA 13:00
PROVIDERS: Visit Provider Psychiatry & Neurology Psychiatry
DX: F31.81 Bipolar II disorder (principal); F41.1 Generalized anxiety disorder; F41.0 Panic disorder [episodic paroxysmal anxiety]; F43.10 Post-traumatic stress disorder, unspecified; Z79.899 Other long term (current) drug therapy
CPT/HCPCS: 90791; 90853

== ENCOUNTER → 2024-06-12 14:44 | Outpatient (BNVA) | payer OTHER, SELFPAY | PROVIDERS: Visit Provider Physician Assistant Surgical ==

== ENCOUNTER 2024-07-08 08:04 | Outpatient (AMB) | payer OTHER, SELFPAY ==
--- NOTE | 2024-07-08 08:06 | A.OFFVIS_ITS ---
VS Expanded 07/08/24 08:20 Height 5 ft 9 in Weight 324 lb 8 oz BMI 47.9 Body Fat % 49 Body Fat Mass 159.2 Fat Free Mass 165.6 Visceral Fat Rating 16 Body Water % 36.5 Body Water Mass 118.4 Basal Metabolic Rate/Score 2,396 Intake Visit Reasons: TV Re-Est SWL BMI 48.0 Allergies Penicillins [PENICILLINS] Allergy (Unknown, Verified 07/08/24 08:06) UNKNOWN shrimp Allergy (Verified 07/08/24 08:06) Hives Medication List - Last Reconciled 07/08/24 by Kyle Sanchez MD albuterol sulfate 90 mcg/actuation 2 puffs inhalation Q6H PRN fluticasone propionate 110 mcg/actuation (Flovent HFA) 1 puff inhalation BID fluticasone propionate 110 mcg/actuation 1 puff inhalation Q12H hydroxyzine pamoate 50 mg PO TID PRN lamotrigine (Lamictal) 200 mg PO DAILY metformin ER 1,000 mg PO BID methimazole 10 mg PO DAILY 30 days prazosin 1 mg PO BEDTIME semaglutide (Ozempic) 0.5 mg subcut QWEEK HPI HPI TV Re-Est SWL BMI 48.0: Details: Start time: 7.54am, End time: 8.39am ?I spent 40 minutes speaking with the patient on the phone plus an additional 5 minutes reviewing and updating records for a total of 45 minutes HPI Comments Details: Previous weight loss efforts: [facility] weight loss program Wakes up: 5.30am, Sleeps: 10.30pm Breakfast: 9am (eggs, or powdered Premier protein shake Lunch: 12.30pm (salad with chicken, or salmon and fruit) Dinner: 6pm (same as lunch) Snacks: 2pm (yogurt, cheese, nuts, fruit), rare at 9pm (yogurt or fruit) Exercise: Rowing machine Fluids: Coffee: 1 cup/day (black), tea hot (2-3 cups/day with Stevia), soda: none, juice: none, ETOH: none PFSH Medical History (Updated 07/08/24 @ 08:13 by Kyle Sanchez MD) Insomnia Type II diabetes mellitus Mild persistent asthma Lumbar spinal stenosis Graves' orbitopathy Palpitations Degenerative joint disease Elevated prolactin level Pituitary microadenoma Hypercholesteremia Sleep apnea Hyperthyroidism Surgical History No pertinent past surgical history Family History Mother No problems noted. Father Diabetes Brother No problems noted. 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 Plan for lap sleeve gastrectomy. If diaphragmatic or ventral hernias are present at time of surgery, these will be repaired laparoscopically as well. Risks and complications include possible conversion to an open procedure, anastomotic leak, bleeding requiring transfusion, small bowel obstruction, , DVT and pulmonary embolism, cardiac, or pulmonary complications, as assisted complications such as anastomotic ulcer, insufficient weight loss and vitamin deficiencies. I emphasized the importance of close follow-up, adherence to instructions and good communication. 2. You will receive a link of our software ruy to generate an individualized nutritional and exercise plan specific for you. Please send me a screenshot of the plans you will generate Meal to include lean meat (beef, fish, pork, turkey, chicken), or uzbek yogurt, or egg whites, or beans with a salad with olive oil and fruits (berries, pears, apples, kiwi). Avoid salt, breads, potatoes, rice, pasta, desserts. ?3. If you choose shakes, each shake would be drunk slowly, like coffee in a period of 2 hours. ?4. If you choose bars, cut each bar in 4 pieces and eat each piece in 30min ?to make each bar last 2 hours. ?5. I emphasized the importance of measuring accurately the food portion and measure it when serving the food in plate ?6. The meal portions include a specific number of forks of meat and salad. You always eat the meat portion but you can replace up to half of salad/vegetables portion with rice, potatoes or pasta, or a fruit ?if you like. The less you do it the better weight loss will be. ?7. One full-size fork is what it can be scooped on the fork without falling aside and not what can be bit with the fork. Use regular forks like those you find in a typical restaurant. ?8.? Please send me weight measurements as soon as possible and then once a week. Always include your diet and exercise plan. 9. The best choice would be to purchase a stationary bike, elliptical or treadmill at home that can track calories. Let me know if you do so I can give you an exercise plan. ?10.?It is important of avoiding and for at least 18 months postoperatively and has been discussed at the infosession. ?11. Goal is to lose at least 1.5-2lbs per week ?12. Goal to lose 10% of your weight before surgery, which is about 32lbs. Ultimate weight goal: 292lbs before surgery 13. Please follow the diet plan exactly without any change. If you don't like something about the plan or you feel hungry you need to communicate with me so I can help you revise the plan. You should not change the plan yourself. 14. To be scheduled for EGD due to history of GERD. The possibility of biopsies was discussed. Patient needs to avoid use of NSAIDs and aspirin for 1 week prior to EGD. Risks of perforation and bleeding was discussed with the patient. This will be an outpatient procedure with IV sedation. Orders: Orders Insulin Today E05.90 - Thyrotoxicosis, unspecified without thyrotoxic crisis or storm, E66.01 - Morbid (severe) obesity due to excess calories, G47.33 - Obstructive sleep apnea (adult) (pediatric), Z99.89 - Dependence on other enabling machines and devices Hemoglobin A1c Today E05.90 - Thyrotoxicosis, unspecified without thyrotoxic crisis or storm, E66.01 - Morbid (severe) obesity due to excess calories, G47.33 - Obstructive sleep apnea (adult) (pediatric), Z99.89 - Dependence on other enabling machines and devices Complete Blood Count Auto Diff Today E05.90 - Thyrotoxicosis, unspecified without thyrotoxic crisis or storm, E66.01 - Morbid (severe) obesity due to excess calories, G47.33 - Obstructive sleep apnea (adult) (pediatric), Z99.89 - Dependence on other enabling machines and devices IRON PROFILE Today E05.90 - Thyrotoxicosis, unspecified without thyrotoxic crisis or storm, E66.01 - Morbid (severe) obesity due to excess calories, G47.33 - Obstructive sleep apnea (adult) (pediatric), Z99.89 - Dependence on other enabling machines and devices Zinc Today E05.90 - Thyrotoxicosis, unspecified without thyrotoxic crisis or storm, E66.01 - Morbid (severe) obesity due to excess calories, G47.33 - Obstructive sleep apnea (adult) (pediatric), Z99.89 - Dependence on other enabling machines and devices Vitamin A Today E05.90 - Thyrotoxicosis, unspecified without thyrotoxic crisis or storm, E66.01 - Morbid (severe) obesity due to excess calories, G47.33 - Obstructive sleep apnea (adult) (pediatric), Z99.89 - Dependence on other enabli ng machines and devices TSH reflex Free T4 Today E05.90 - Thyrotoxicosis, unspecified without thyrotoxic crisis or storm, E66.01 - Morbid (severe) obesity due to excess stanley kiki, G47.33 - Obstructive sleep apnea (adult) (pediatric), Z99.89 - Dependence on other enabling machines and devices XR chest 2V Today E05.90 - Thyrotoxicosis, unspecified without thyrotoxic crisis or storm, E66.01 - Morbid (severe) obesity due to excess calories, G47.33 - Obstructive sleep apnea (adult) (pediatric), Z99.89 - Dependence on other enabling machines and devices FL upper GI w air Today E05.90 - Thyrotoxicosis, unspecified without thyrotoxic crisis or storm, E66.01 - Morbid (severe) obesity due to excess calories, G47.33 - Obstructive sleep apnea (adult) (pediatric), Z99.89 - Dependence on other enabling machines and devices H Pylori Breath Test Today E05.90 - Thyrotoxicosis, unspecified without thyrotoxic crisis or storm, E66.01 - Morbid (severe) obesity due to excess calories, G47.33 - Obstructive sleep apnea (adult) (pediatric), Z99.89 - Dependence on other enabling machines and devices Lipid Panel Today E05.90 - Thyrotoxicosis, unspecified without thyrotoxic crisis or storm, E66.01 - Morbid (severe) obesity due to excess calories, G47.33 - Obstructive sleep apnea (adult) (pediatric), Z99.89 - Dependence on other enabling machines and devices Comprehensive Met. Panel Today E05.90 - Thyrotoxicosis, unspecified without thyrotoxic crisis or storm, E66.01 - Morbid (severe) obesity due to excess calories, G47.33 - Obstructive sleep apnea (adult) (pediatric), Z99.89 - Dependence on other enabling machines and devices Vitamin B12 and Folate Today E05.90 - Thyrotoxicosis, unspecified without thyrotoxic crisis or storm, E66.01 - Morbid (severe) obesity due to excess calories, G47.33 - Obstructive sleep apnea (adult) (pediatric), Z99.89 - Dependence on other enabling machines and devices C Reactive Protein Today E05.90 - Thyrotoxicosis, unspecified without thyrotoxic crisis or storm, E66.01 - Morbid (severe) obesity due to excess calories, G47.33 - Obstructive sleep apnea (adult) (pediatric), Z99.89 - Dependence on other enabling machines and devices Vitamin B1 Today E05.90 - Thyrotoxicosis, unspecified without thyrotoxic crisis or storm, E66.01 - Morbid (severe) obesity due to excess calories, G47.33 - Obstructive sleep apnea (adult) (pediatric), Z99.89 - Dependence on other enabling machines and devices Ferritin Today E05.90 - Thyrotoxicosis, unspecified without thyrotoxic crisis or storm, E66.01 - Morbid (severe) obesity due to excess calories, G47.33 - Obstructive sleep apnea (adult) (pediatric), Z99.89 - Dependence on other enabling machines and devices Vitamin D 25-OH Total Today E05.90 - Thyrotoxicosis, unspecified without thyrotoxic crisis or storm, E66.01 - Morbid (severe) obesity due to excess calories, G47.33 - Obstructive sleep apnea (adult) (pediatric), Z99.89 - Dependence on other enabling machines and devices US abdomen comp w elastography Today E05.90 - Thyrotoxicosis, unspecified without thyrotoxic crisis or storm, E66.01 - Morbid (severe) obesity due to excess calories, G47.33 - Obstructive sleep apnea (adult) (pediatric), Z99.89 - Dependence on other enabling machines and devices ECG 12 lead EKG Today E05.90 - Thyrotoxicosis, unspecified without thyrotoxic crisis or storm, E66.01 - Morbid (severe) obesity due to excess calories, G47.33 - Obstructive sleep apnea (adult) (pediatric), Z99.89 - Dependence on other enabling machines and devices Referrals Behavioral Health Referral E05.90 - Thyrotoxicosis, unspecified without thyrotoxic crisis or storm, E66.01 - Morbid (severe) obesity due to excess calories, G47.33 - Obstructive sleep apnea (adult) (pediatric), Z99.89 - Dependence on other enabling machines and devices Nutrition/Dietitian Referral E05.90 - Thyrotoxicosis, unspecified without thyrotoxic crisis or storm, E66.01 - Morbid (severe) obesity due to excess calories, G47.33 - Obstructive sleep apnea (adult) (pediatric), Z99.89 - Dependence on other enabling machines and devices
[2024-07-08 08:20] VITALS: BMI 47.9
== END 2024-07-08 08:39 | disposition home or self-care (01) ==
LOC: HO.HBS 08:04
PROVIDERS: Visit Provider Surgery
DX: E66.01 Morbid (severe) obesity due to excess calories (principal)
CPT/HCPCS: 99204

== ENCOUNTER → 2024-07-08 08:04 | Outpatient (BNVA) | payer OTHER, SELFPAY | PROVIDERS: Visit Provider Surgery ==

== ENCOUNTER 2024-07-18 09:24 | Outpatient (REF) | payer OTHER, SELFPAY ==
--- NOTE | ~2024-07-18 | XR_ITS ---
EXAMINATION: XR CHEST 2 VIEWS CLINICAL INFORMATION: Morbid (severe) obesity due to excess calories E66.01. COMPARISON: XR Chest 10/28/2022 TECHNIQUE: 2 views of the chest were obtained. FINDINGS: No significant abnormality is noted involving the heart, lungs, mediastinum, bony thorax or soft tissues. XR/XR chest 2V IMPRESSION: Unremarkable examination. Electronically signed by: Gennaro Ace MD 09/25/2024 11:44 AM [facility]
--- NOTE | ~2024-07-18 | US_ITS ---
EXAMINATION: US COMPLETE ABDOMEN WITH LIVER ELASTOGRAPHY CLINICAL INFORMATION: Morbid obesity. COMPARISON: None available. TECHNIQUE: Real-time imaging of the abdominal viscera. Noninvasive ultrasound liver fibrosis assessment is performed using Tommy ElastPQ point quantification shear wave elastography (pSWE) with a C5-2 MHz transducer. Multiple elastography samples are obtained. FINDINGS: PANCREAS: Normal. The visualized pancreatic head and body are normal in appearance. The remainder of the pancreas is obscured from visualization by the overlying bowel gas. ABDOMINAL AORTA: The proximal, middle, and distal aortic segments are normal in caliber. INFERIOR VENA CAVA: Visualized portions are normal. LIVER: . The liver is enlarged with increased echogenicity. No focal lesion or intrahepatic biliary duct dilatation. The right lobe measures 23.0 cm in length. The left lobe measures 17.4 cm in length. Portal flow is towards the liver (hepatopetal). Shear wave liver elastography median stiffness is 2.23 m/s (reference: normal median stiffness is 1.3 m/s or less). IQR/median stiffness to assess sampling precision is 0.05 (reference: good quality data set is IQR/median stiffness of 0.15 or less). GALLBLADDER: Normal. The gallbladder is physiologically distended without evidence of stones, sludge, polyps, wall thickening or pericholecystic fluid. COMMON BILE DUCT: Normal in caliber measuring 0.7 cm in diameter. RIGHT KIDNEY: Normal. No hydronephrosis. No renal calculi or focal parenchymal lesions. The kidney measures 11.6 cm in maximum dimension. LEFT KIDNEY: Normal. No hydronephrosis. No renal calculi or focal parenchymal lesions. The kidney measures 12.6 cm in maximum dimension. SPLEEN: The spleen is enlarged measuring 13.3 cm in maximum dimension. FREE FLUID: None. US/US abdomen comp w elastography IMPRESSION: 1. Enlarged fatty liver and splenomegaly. 2. Liver elastography: Measuremensts are consistent with compensated advanced chronic liver disease. Threshold for accuracy is slightly lowered secondary to sampling box under 2 cm from the capsule. REFERENCE: Society of Radiologists in Ultrasound Liver Stiffness Thresholds (2019): LIVER STIFFNESS THRESHOLDS: *Liver Stiffness equal or less than 1.3 m/s: High probability of being normal. *Liver Stiffness less than 1.7 m/s: In the absence of other known clinical signs, rules out compensated advanced chronic liver disease. *Liver Stiffness 1.7-2.1 m/s: Suggestive of compensated advanced chronic liver disease but need further test for confirmation. *Liver Stiffness over 2.1 m/s: Rules in compensated advanced chronic liver disease. *Liver Stiffness over 2.4 m/s: Suggestive of clinically significant portal hypertension. QUALITY OF DATA SET: *IQR/Median value equal or less than 0.15 implies a quality data set. *IQR/Median value over 0.15 implies a poor quality data set. SIGNIFICANT CHANGE FROM PRIOR EXAM: Significant change if liver stiffness measurement is 10% or greater from prior exam. OTHER CONSIDERATIONS: The stage of liver fibrosis may be overestimated in the setting of acute hepatitis, liver inflammation, elevated liver function tests, hepatic vascular congestion, obstructive cholestasis, non-fasting state, and infiltrative diseases such as amyloidosis and lymphoma. In some patients with NAFLD, the liver stiffness thresholds for compensated advanced chronic liver disease may be lower. In causes other than viral hepatitis and NAFLD, liver stiffness thresholds are not well established. Electronically signed by: Royce Serrano MD 08/31/2024 12:16 PM FELICITA
--- NOTE | 2024-07-18 09:28 | ECG_ITS ---
Test Reason : MOR OBS Blood Pressure : / mmHG Vent. Rate : 087 BPM Atrial Rate : 087 BPM P-R Int : 194 ms QRS Dur : 100 ms QT Int : 388 ms P-R-T Axes : 044 102 027 degrees QTc Int : 466 ms Normal sinus rhythm Rightward axis Borderline ECG When compared with ECG of 28-OCT-2022 08:28, No significant change was found Referred By: Kyle Sanchez Electronically Signed By:RENETTA SOTO
[2024-07-18 09:42] LABS: MANUAL DIFF FLAG NO
[2024-07-18 10:26] LABS: Basophils Absolute Auto 0.1 X10*3/uL (0.0-0.2); Basophils Percent Auto 0.7 % (0-2); Eosinophils Absolute Auto 0.2 X10*3/uL (0.0-0.4); Eosinophils Percent Auto 2.1 % (0-4); Hematocrit 40.1 % (37.0-47.0); Hemoglobin 13.2 g/dl (12.0-16.0); Imm Gran Abs Auto 0.03 X10*3/uL (0.00-0.03); Imm Gran Pct Auto 0.4 % (0.0-0.4); Lymphocytes Percent Auto 26.2 % (20-40); Mean Corpuscular HGB Conc 32.9 g/dl (31.0-35.0); Mean Corpuscular Hemoglobin 30.1 pg (27.0-33.0); Mean Corpuscular Volume 91.6 fL (80.0-98.0); Mean Platelet Volume 9.9 fL (9.4-12.3); Monocytes Absolute Auto 0.4 X10*3/uL (0.1-1.2); Monocytes Percent Auto 5.8 % (2-11); Neutrophils Absolute Auto 4.9 x10*3/uL (2.0-8.3); Neutrophils Percent Auto 64.8 % (45-73); Platelet Count 276 X10*3/uL (160-400); Red Blood Count 4.38 X10*6/uL (4.20-5.50); Red Cell Distribution Width 13.3 % (11.0-16.0); White Blood Count 7.5 X10*3/uL (4.8-10.8)
[2024-07-18 10:55] LABS: Estimated Average Glucose 123 mg/dL; Hemoglobin A1C 137.7287 umol/L; Hemoglobin A1c % 5.9 % (<6.0); Total Hemoglobin (HGBA1C) 3341.9105 umol/L
[2024-07-18 10:58] LABS: Alanine Aminotransferase 39 U/L (0-31); Albumin Level 4.4 g/dL (3.5-5.0); Alkaline Phosphatase 78 U/L (39-117); Anion Gap 12 (12-20); Aspartate Amino Transferase 18 U/L (5-31); Bilirubin Total 0.3 mg/dL (0.0-1.0); Blood Urea Nitrogen 17 mg/dL (9-16); C Reactive Protein 0.75 mg/dL (< or = 0.50); Calcium 9.7 mg/dL (8.4-10.2); Carbon Dioxide 27 mmol/L (22-29); Chloride 105 mmol/L (96-108); Cholesterol 201 mg/dL (<200); Estimated Glomerular Filt Rate > 60; Glucose Random 87 mg/dL (60-115); HDL Cholesterol 60 mg/dL (>40); Iron 80 mcg/dL (30-160); LDL Cholesterol Calculated 112 mg/dL (<100); Percent Iron Saturation 28 % (15-50); Potassium 3.9 mmol/L (3.3-5.1); Sodium 140 mmol/L (135-145); Total Iron Binding Capacity 283 mcg/dL (228-428); Total Protein 7.6 g/dL (6.5-8.0); Triglycerides 149 mg/dL (<150); Unsaturated Iron Binding 203 ug/dL
[2024-07-18 11:25] LABS: Ferritin 132 ng/mL (10-250); Insulin 17 uU/mL (2-29); TSH reflex Free T4 1.31 uIU/mL (0.32-4.0); Vitamin D 25-OH Total 23.4 ng/mL (>30)
[2024-07-18 11:31] LABS: Folate 12.2 ng/mL (> or = 4.0); Vitamin B12 664 pg/mL (200-900)
[2024-07-22 18:28] LABS: Zinc 66 mcg/dL (60-130)
[2024-07-23 22:59] LABS: Vitamin A 48 mcg/dL (38-98)
[2024-07-26 15:44] LABS: Vitamin B1 9 nmol/L (8-30)
== END 2024-07-18 09:25 | disposition home or self-care (01) ==
LOC: HO.US 09:24
PROVIDERS: PCP Internal Medicine; Visit Provider Surgery
DX: E66.01 Morbid (severe) obesity due to excess calories (principal); E05.90 Thyrotoxicosis, unspecified without thyrotoxic crisis or storm; G47.33 Obstructive sleep apnea (adult) (pediatric); Z99.89 Dependence on other enabling machines and devices; Z13.1 Encounter for screening for diabetes mellitus
CPT/HCPCS: 36415; 71046; 76700; 76981; 80053; 80061; 82306; 82607; 82728; 82746; 83036; 83525; 83540; 84425; 84443; 84590; 84630; 85025; 86140; 93005

== ENCOUNTER → 2024-08-23 11:26 | Outpatient (AMB) | payer OTHER, SELFPAY ==
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
== END ==
LOC: HO.HBST 11:26
PROVIDERS: PCP Internal Medicine; Visit Provider Counselor Mental Health
DX: F43.10 Post-traumatic stress disorder, unspecified (principal); F31.81 Bipolar II disorder
CPT/HCPCS: 90837

== ENCOUNTER → 2024-09-09 11:37 | Outpatient (AMB) | payer OTHER, SELFPAY ==
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
== END ==
LOC: HO.HBST 11:37
PROVIDERS: PCP Internal Medicine; Visit Provider Counselor Mental Health
DX: F43.10 Post-traumatic stress disorder, unspecified (principal); F31.81 Bipolar II disorder
CPT/HCPCS: 90834

== ENCOUNTER 2024-10-23 11:48 | Day surgery (SDC) | payer OTHER, SELFPAY ==
--- NOTE | 2024-10-21 14:53 | HO.ANESPROP2 ---
Documented by User: Denae Calderon NP 10/21/24 14:53 HPI - Anesthesia Eval Consult details Narrative: 44yo F for Upper Endoscopy Anesthesia Pre-Procedure Meds Is the patient on any of the following meds?: GLP1/DPP4 PMFSH Active Problems Active Problems: All Active Problems Vitamin D deficiency (Acute) Insomnia (Acute) Generalized anxiety disorder with panic attacks (Acute) PTSD (post-traumatic stress disorder) (Acute) Bipolar 2 disorder, major depressive episode (Acute) Osteoarthritis, hand (Acute) Abnormal ECG (Acute) Anxiety and depression (Acute) SANDRA on CPAP (Acute) Bipolar 1 disorder (Acute) Pituitary adenoma (Acute) Hypoglycemia (Acute) Morbid obesity (Acute) Contusion of left knee (Acute) Hyperthyroidism (Acute) Past Medical History Medical History Insomnia Type II diabetes mellitus Mild persistent asthma Lumbar spinal stenosis Graves' orbitopathy Palpitations Degenerative joint disease Elevated prolactin level Pituitary microadenoma Hypercholesteremia Sleep apnea Hyperthyroidism Family History Family History Mother No problems noted. Father Diabetes Brother No problems noted. 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 Meds Allergies Allergy/AdvReac Type Severity Reaction Status Date / Time Penicillins [PENICILLINS] Allergy Unknown UNKNOWN Verified 10/23/24 13:20 shrimp Allergy Hives Verified 10/23/24 13:20 Home Medications ?Medication ?Instructions ?Recorded ?Confirmed ?Last Taken ?Type fluticasone propionate 110 1 puff inhalation BID 05/15/23 07/08/24 10/06/23 10:00 History mcg/actuation HFA aerosol inhaler (Flovent HFA) metformin 500 mg tablet,extended 1,000 mg PO BID 10/06/23 07/08/24 Unknown History release 24 hr lamotrigine 200 mg tablet 200 mg PO DAILY 06/12/24 07/08/24 Unknown History (Lamictal) prazosin 1 mg capsule 1 mg PO BEDTIME 06/12/24 07/08/24 Unknown History semaglutide 0.25 mg or 0.5 mg (2 0.5 mg subcut QWEEK 06/12/24 07/08/24 Unknown History mg/1.5 mL) subcutaneous pen injector (Ozempic) albuterol sulfate 90 mcg/actuation 2 puff inhalation Q6H PRN 07/08/24 07/08/24 Unknown History aerosol inhaler fluticasone propionate 110 1 puff inhalation Q12H 07/08/24 07/08/24 Unknown History mcg/actuation HFA aerosol inhaler Assessment and Plan Assessment Anesthesia Assessment: Chart Reviewed Documented by User: Josee Garcia MD 10/23/24 13:55 HPI - Anesthesia Eval Anesthesia Pre-Procedure Meds Is the patient on any of the following meds?: GLP1/DPP4 (Ozempic- last dose 10/15/24) If yes to any meds - educate patient: Pt education - increased risk of aspiration and/or euvolemic DKA PMFSH Active Problems Active Problems: All Active Problems Vitamin D deficiency (Acute) Insomnia (Acute) Generalized anxiety disorder with panic attacks (Acute) PTSD (post-traumatic stress disorder) (Acute) Bipolar 2 disorder, major depressive episode (Acute) Osteoarthritis, hand (Acute) Abnormal ECG (Acute) Anxiety and depression (Acute) SANDRA on CPAP (Acute) Bipolar 1 disorder (Acute) Pituitary adenoma (Acute) Hypoglycemia (Acute) Morbid obesity (Acute) Contusion of left knee (Acute) Hyperthyroidism (Acute) Asthma. Flovent daily Ex- smoker. Quit 1 month ago Past Medical History Medical History Insomnia Type II diabetes mellitus Mild persistent asthma Lumbar spinal stenosis Graves' orbitopathy Palpitations Degenerative joint disease Elevated prolactin level Pituitary microadenoma Hypercholesteremia Sleep apnea Hyperthyroidism Family History Family History Mother No problems noted. Father Diabetes Brother No problems noted. 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 Allergies Allergy/AdvReac Type Severity Reaction Status Date / Time Penicillins [PENICILLINS] Allergy Unknown UNKNOWN Verified 10/23/24 13:20 shrimp Allergy Hives Verified 10/23/24 13:20 Home Medications ?Medication ?Instructions ?Recorded ?Confirmed ?Last Taken ?Type fluticasone propionate 110 1 puff inhalation BID 05/15/23 07/08/24 10/06/23 10:00 History mcg/actuation HFA aerosol inhaler (Flovent HFA) metformin 500 mg tablet,extended 1,000 mg PO BID 10/06/23 07/08/24 Unknown History release 24 hr lamotrigine 200 mg tablet 200 mg PO DAILY 06/12/24 07/08/24 Unknown History (Lamictal) prazosin 1 mg capsule 1 mg PO BEDTIME 06/12/24 07/08/24 Unknown History semaglutide 0.25 mg or 0.5 mg (2 0.5 mg subcut QWEEK 06/12/24 07/08/24 Unknown History mg/1.5 mL) subcutaneous pen injector (Ozempic) albuterol sulfate 90 mcg/actuation 2 puff inhalation Q6H PRN 07/08/24 07/08/24 Unknown History aerosol inhaler fluticasone propionate 110 1 puff inhalation Q12H 07/08/24 07/08/24 Unknown History mcg/actuation HFA aerosol inhaler Exam Height,Weight and Vital Signs: Height 5 ft 9 in Weight 143.789 kg Vital Signs Temp Pulse Resp BP Pulse Ox O2 Del Method 10/23/24 13:24 98.1 F 73 16 150/86 H 98 Room Air Pertinent Lab Results Pertinent Lab Results: Lab Results 10/23/24 Range/Units Unknown Urine Test NEGATIVE (NEGATIVE) POC 69mg/dL Airway Mallampati Class: III TM Dist: >3cm Neck ROM: Full (Extension ok but sore with full extension ) Loose/Missing/Broken Teeth: No Heart: RRR Lungs: CTAB Assessment and Plan Assessment Anesthesia Assessment: Anesthesia Plan Discussed and Chart Reviewed Final Anesthetic Review Family History of Problems with Anesthesia: No History of Problems with Anesthesia: No NPO: Yes ASA Class: III Final Preanesthetic Review: No Changes in Pt Med Stat, Meds/Allgs Chart Reviewed, Consent Obtained/Reviewed and Anes Risks/Benef Reviewed Patient Risk: Intermediate Procedure Risk: Low Assessment/Block/Sedation in SS: Assess/Block/Sedation-SS Anesthetic Plan Anesthetic Plan: TIVA Disposition: Standard PACU
[2024-10-23 12:58] LABS: UPreg QC Valid YES; Urine Pregnancy NEGATIVE (NEGATIVE)
[2024-10-23 13:24] VITALS: BP 150/86; PULSE 73; RESP 16; TEMP 36.7; O2SAT 98; BMI 46.8
[2024-10-23] MEDS: Lactated Ringers 1,000 ML 80 ML IVCONT (13:37)
--- NOTE | 2024-10-23 13:53 | P.HPSUR_ITS ---
Pre-Procedural Eval Section A - 24 Hr Update-Section A only Date of Service: 10/23/24 The patient is an INPATIENT: No The patient has been examined within 24 hours of the surgical procedure. The History & Physical has been completed within 30 days and I have reviewed it.: Yes Section B - Complete if H&P > 30 days Chief Complaint: Morbid (severe) obesity due to excess calories Relevant Family History (Specify if Yes): No Relevant Social History: None Present Medications: None Medical History: No relevant PMH History of Previous Operations: No relevant previous surgery Allergies: Allergies Allergy/AdvReac Type Severity Reaction Status Date / Time Penicillins [PENICILLINS] Allergy Unknown UNKNOWN Verified 10/23/24 13:20 shrimp Allergy Hives Verified 10/23/24 13:20 Review of Systems Sugical H&P ROS: Negative: Constitution, Cardiovascular, Respiratory, Neurological, Psychiatric, Hem-Onc, Allergic/Immunologic, Gastrointestinal, Genitourinary, Musculoskeletal, Integumentary, Endocrine and Eyes/Ears/Nos e/Throat Exam Surgical H&P Exam: Normal: HEENT, Normal: Heart, Normal: Lungs, Normal: Extremities, Normal: Abdomen, Normal: Skin and Normal: Neurological Plan Diagnosis/Plan: Unchanged (EGD to assess the stomach's anatomy. Risks of bleeding and perforation were discussed with the patient and she is in agreement with the plan.) I have reviewed the history and physical and performed a pertinent physical examination on my patient. No changes have occurred unless specified. Time Spent With Patient Time: Total time managing care of this patient today ____ minutes.
--- NOTE | 2024-10-23 13:56 | PM.OP ---
Brief Operative Note Date of Service: 10/23/24 Pre-op diagnosis: Morbid obesity Post-op diagnosis: same Procedure: PROCEDURE DATE: 10/23/2024 PREOPERATIVE DIAGNOSIS: GERD POSTOPERATIVE DIAGNOSIS: ?Same as above. 1) normal PROCEDURE: Muahkpaa-rtiwvd-ftljoagczyjo with biopsies Surgeon: Lucy Sanchez M.D.. Ph.D. Plant Operator Control Room Operator: None ? Anesthesia: IV sedation Estimated blood loss: ?Minimal FINDINGS AND PROCEDURE: ? OPERATIVE INDICATIONS: ?The patient is a 44 year old female known to me who is interested in bariatric surgery. Based on this information I recommended an upper endoscopy to evaluate the stomach's anatomy.. Risks and complications of the surgery were discussed with the patient in advance particularly the possibility of perforation or bleeding that may require surgical intervention. The patient understood the risks and was in agreement with the plan. ? PROCEDURE: After informed consent was obtained by the patient, the patient was ?transferred to the Operating Room and was placed in the supine position.? After successful induction of IV sedation, a mouth block was inserted and the patient was placed in the left lateral decubitus position. An upper endoscopy was performed next, the oropharynx and esophagus appeared within the normal limits. There was no hiatal hernia. The z-line was smooth. Two biopsies were obtained from the distal esophagus 2-3 cm proximal to the GE junction and two additional biopsies from the GE junction. The stomach was entered and it appeared to be of normal size. There was no gastritis. There was no stricture or ulcer. A biopsy was obtained from the gastric fundus and antrum. No significant bleeding was noted from any of the biopsy sites. Retroflexion of the scope revealed a normal GE junction. The scope was then advanced into the duodenum which appeared to be normal as well. At that point the duodenum ?and the stomach were decompressed and the scope was withdrawn from the patient's mouth. The patient extubated and was transferred in stable condition to the Recovery Room for further care. I was present and performed all steps of the procedure. There were no residents to assist with this case. Willie Sanchez M.D., Ph.D. Surgeon: Kyle Sanchez MD Anesthesia: MAC Was an Plant Operator Control Room Operator used for this Procedure?: No Estimated blood loss (mL): 0 IV fluids (mL): 400 Urine output (mL): 0 (No Morris to record output) Pathology: other (1) antrum x1, 2) fundus x1, 3) GE junction x2, 4) distal esophagus x2) Condition: stable Disposition: PACU
[2024-10-23 13:57] LABS: Glucose, Whole Blood 69 mg/dL (60-115)
[2024-10-23 14:20] VITALS: BP 111/68; PULSE 78; RESP 14; TEMP 36.2; O2SAT 100
[2024-10-23 14:35] VITALS: BP 112/61; PULSE 69; RESP 16; O2SAT 97
[2024-10-23 14:50] VITALS: BP 135/83; PULSE 67; RESP 16; O2SAT 97
== END 2024-10-23 15:44 | disposition home or self-care (01) ==
PROVIDERS: Nurse Practitioner; PCP Internal Medicine; Visit Provider Surgery
PROC: 0DJ08ZZ Inspection of Upper Intestinal Tract, Via Natural or Artificial Opening Endoscopic (ICD-10-PCS; CPT 43235; principal; 2024-10-23 13:50)
DX: E66.01 Morbid (severe) obesity due to excess calories (principal); Z68.42 Body mass index [BMI] 45.0-49.9, adult; E78.00 Pure hypercholesterolemia, unspecified; E05.00 Thyrotoxicosis with diffuse goiter without thyrotoxic crisis or storm; E11.9 Type 2 diabetes mellitus without complications; E22.1 Hyperprolactinemia; D35.2 Benign neoplasm of pituitary gland; R00.2 Palpitations; G47.33 Obstructive sleep apnea (adult) (pediatric); J45.30 Mild persistent asthma, uncomplicated; M48.061 Spinal stenosis, lumbar region without neurogenic claudication; Z79.51 Long term (current) use of inhaled steroids; Z79.84 Long term (current) use of oral hypoglycemic drugs; Z79.85 Long-term (current) use of injectable non-insulin antidiabetic drugs; Z79.899 Other long term (current) drug therapy; Z99.89 Dependence on other enabling machines and devices; Z88.0 Allergy status to penicillin; Z87.891 Personal history of nicotine dependence
CPT/HCPCS: 43239; 81025; 82947; 88305; 88313; 88342; J1596; J2003; J2704

== ENCOUNTER → 2024-10-23 11:48 | Outpatient (BNV) | payer OTHER, SELFPAY | PROVIDERS: PCP Internal Medicine; Visit Provider Surgery | DX: K21.9 Gastro-esophageal reflux disease without esophagitis (principal) | CPT/HCPCS: 43239 ==

== ENCOUNTER 2024-11-22 12:08 | Outpatient (AMB) | payer OTHER, SELFPAY ==
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
--- OUTSIDE RECORDS SUMMARY | 2024-11-22 13:11 | XMS_ITS | Encounter Summary ---
Author Organization [facility] Address [address] [place] [address] Care Team Providers Care Derrick Operator Name Role Phone Sylvia Shultz MD Primary Care Prov ider Sin Kern MD Unavailable [phone] Encounter Details Date Type Department Care Team Description 05/12/2023 Refill Endocrinology - [place] [address] [place] [address] Shania Jacinto PA-C [address] [place] [address] Social History Tobacco Use Types Packs/Day Years Used Date Smoking Tobacco: Former Cigarettes 0.3 16 Smokeless Tobacco: Never Alcohol Use Standard Drinks/Week Comments No 0 (1 standard drink = 0.6 oz pur e alcohol) Alcohol Habits Answer Date Recorded How often do you have a drink containing alcohol ? Never 08/16/2019 How many drinks containing a lcohol do you have on a typical day when you are drinking? Not asked How often do you have six or more drinks on one occasion? Not asked Sex Assigned at Date Recorded Female 04/17/2023 8:12 AM E DT Job Start Date Occupation Industry Not on file Not on file Not on file documented as of this encounter Miscellaneous Notes * Telephone Encounter - Mallika Aquino - 05/15/2023 8:15 AM EDT Bobbi 09/21/22 Ov 06/26/23 Lab Results Component Value Date TSH 2.53 08/08/2022 documented in this encounter Plan of Treatment Not on file documented as of this encounter Visit Diagnoses Not on filedocumented in this encounter Care Teams Derrick Operator Relationship Specialty Start Date End Date Sylvia Shultz MD [address] [place] [address] PCP - General Internal Medicine 05/16/22 Sin Kern MD [address] [place] [address] Specialist Cardiovascular Disease 05/08/23 documented as of this encounter
--- OUTSIDE RECORDS SUMMARY | 2024-11-22 13:11 | XMS_ITS | Encounter Summary ---
Author Organization [facility] Address [address] [place] [address] Care Team Providers Care Sole Leather Cutting Machine Operator Name Role Phone Sylvia Shultz MD Primary Care Prov ider Sin Kern MD Unavailable [phone] Reason for Visit * Reason Onset Date Comments Sleep Study 06/14/2022 Encounter Details Date Type Department Care Team Description 06/14/2022 Telephone Pulmonology - [place] 175 [facility] [address] [place] [phone] Joie Francois APRN 175 [facility] [address] [place] [phone] Sleep Study Social History Tobacco Use Types Packs/Day Years [...] file Not on file Not on file COVID-19 Exposure Response Date Recorded In the last 10 days, have yo u been in contact with someone who was confirmed or suspected to have Coronavirus/COVID-19? No / Unsure 06/08/2022 1:18 PM EDT documented as of this encounter Miscellaneous Notes * Telephone Encounter - Ceci Garibay M.A. - 06/15/2022 1:49 PM EDT Appointment for today at 06/15 at 2:20pm documented in this encounter Plan of Treatment Not on file documented as of this encounter Visit Diagnoses Not on filedocumented in this encounter Care Teams Sole Leather Cutting Machine Operator Relationship Specialty Start Date End Date Sylvia Shultz MD [address] [place] [address] PCP - General Internal Medicine 05/16/22 Sin Kern MD [address] [place] [address] Specialist Cardiovascular Disease 05/08/23 documented as of this encounter
--- OUTSIDE RECORDS SUMMARY | 2024-11-22 13:11 | XMS_ITS | Encounter Summary ---
Author Organization [facility] Address [address] [place] [address] Care Team Providers Care Professional Development Instructor Name Role Phone Sylvia Shultz MD Primary Care Prov ider Sin Kern MD Unavailable [phone] Encounter Details Date Type Department Care Team Description 08/04/2023 SCAN Medical Records [address] [place] [id number] [place] [address] Social History Tobacco Use Types Packs/Day Years [...] suspected to have Coronavirus/COVID-19? No / Unsure 07/17/2023 12:57 PM EDT documented as of this encounter Plan of Treatment Not on file documented as of this encounter Visit Diagnoses Not on filedocumented in this encounter Care Teams Professional Development Instructor Relationship Specialty Start Date End Date Sylvia Shultz MD [address] [place] [address] PCP - General Internal Medicine 05/16/22 Sin Kern MD [address] [place] [address] Specialist Cardiovascular Disease 05/08/23 documented as of this encounter
--- OUTSIDE RECORDS SUMMARY | 2024-11-22 13:11 | XMS_ITS | Encounter Summary ---
Author Organization [facility] Address [address] [place] [address] Care Team Providers Care Cpc Name Role Phone Sylvia Shultz MD Primary Care Prov ider Sin Kern MD Unavailable [phone] Encounter Details Date Type Department Care Team Description 11/06/2022 Pt. Non Urgent Medical Question Pulmonology - [place] 175 [facility] [address] [place] [phone] Joie Francois APRN 175 [facility] [address] [place] [phone] Social History Tobacco Use Types Packs/Day Years Used Date Smoking Tobacco: Some Days Cigarettes 0.3 16 Smokeless Tobacco: Never Alcohol [...] Telephone Encounter - Ceci Garibay M.A. - 11/07/2022 8:14 AM ESTFrom: Sulma Harman To: Jayshree Francois Sent: 11/06/2022 3:08 PM EST Subject: CPAP Greetings, I haven???t recive any calls about the CPAP machine and I received a letter of my insurance saying they don???t approved it. Can you reach to them please? Thank you Sulma Harman documented in this encounter Plan of Treatment Not on file documented as of this encounter Visit Diagnoses Not on filedocumented in this encounter Care Teams Cpc Relationship Specialty Start Date End Date Sylvia Shultz MD [address] [place] [address] PCP - General Internal Medicine 05/16/22 Sin Kern MD [address] [address] Specialist Cardiovascular Disease 05/08/23 documented as of this encounter
--- OUTSIDE RECORDS SUMMARY | 2024-11-22 13:11 | XMS_ITS | Encounter Summary ---
Author Organization [facility] Address [address] [place] [address] Care Team Providers Care I&C Technician Name Role Phone Sylvia Shultz MD Primary Care Prov ider Sin Kern MD Unavailable [phone] Encounter Details Date Type Department Care Team Description 09/16/2022 Orders Only Pulmonology - [place] 175 [facility] [address] [place] [phone] Joie Francois, RACHEL 175 [facility] [address] [place] [phone] Obstructive sleep apnea hypopnea, moderate; Nocturnal hypoxemia; Class 3 severe obesity due to excess calories with serious comorbidity and body mass index (BMI) of 45.0 to 49.9 in adult (HCC) Social History Tobacco Use Types Packs/Day Years [...] suspected to have Coronavirus/COVID-19? No / Unsure 08/17/2022 1:43 PM EDT documented as of this encounter Plan of Treatment Not on file documented as of this encounter Procedures Procedure Name Priority Date/Time Associated Diagnosis Comments SLEEP STUDY-FULL NEURO 16 CHANNEL Routine 08/30/2022 Obstructive sleep apnea hypopnea, moderate Nocturnal hypoxemia Class 3 severe obesity due to excess calories with serious comorbidity and body mass index (BMI) of 45.0 to 49.9 in adult (HCC) documented in this encounter Results * SLEEP STUDY-FULL NEURO 16 CHANNEL (08/30/2022) Joie Francois APRN PULMONOLOGY documented in this encounter Visit Diagnoses Diagnosis Obstructive sleep apnea hypopnea, moderate Nocturnal hypoxemia Hypoxemia Class 3 severe obesity due to excess calories with serious comorbidity and body mass index (BMI) of 45.0 to 49.9 in adult (HCC) documented in this encounter Care Teams I&C Technician Relationship Specialty Start Date End Date Sylvia Shultz MD [address] [place] [address] PCP - General Internal Medicine 05/16/22 Sin Kern MD 300 [facility] [address] [place] [address] Specialist Cardiovascular Disease 05/08/23 documented as of this encounter
--- OUTSIDE RECORDS SUMMARY | 2024-11-22 13:11 | XMS_ITS | Encounter Summary ---
Author Organization [facility] Address [address] [place] [address] Care Team Providers Care Fitting Room Checker Name Role Phone Sylvia Sandra MD Primary Care Prov ider Reason for Visit * Reason Onset Date Comments Med Change Request 10/02/2024 Encounter Details Date Type Department Care Team ([facility] st Contact Info) Description 10/02/2024 Telephone Endocrinology - [address] [phone] Shania Jacinto PA [address] [place] [address] Med Change Request Social History Tobacco Use Types Packs/Day Years Used Date Smoking Tobacco: Former Cigarettes Smokeless Tobacco: Never Alcohol Use Standard Drinks/Week Comments No 0 (1 standard drink = 0.6 oz pur e alcohol) Sex and Gender Information Value Date Recorded Sex Assigned at Not on file Gender Identity Not on file Sexual Orientation Not on file Job Start Date Occupation Industry Not on file Not on file Not on file documented as of this encounter Progress Notes * Chen Subramanian RN - 10/03/2024 10:22 AM EST Called and spoke with patient Message from provider read Pt verbalizes understanding * CLEMENCIA Robles - 10/02/2024 3:46 PM EST Sensors are usually not covered by insurance unless she is on insulin. She needs to check with her insurance to see if they cover it and if they do if they have any requirements. At this time she does not meet criteria for a CGM Also in terms of Ozempic her last A1c was at goal. If she wants any medication changes she will need to make an appointment so we can discuss this further as at this time I do not see a reason to increase her medication * Chen Subramanian RN - 10/02/2024 1:30 PM EST L[facility] 07/04/24 NOV11/20/24 Lab Results Component Value Date HGBA1C 6.1 07/04/2024 CHOL 251 (A) 06/13/2023 HDL 55 06/13/2023 TRIG 530 (A) 06/13/2023 Wegovy 1mg ordered 07/04/24: 3ml 5 RF Pt denies any side effects from wegovy Current weight 322 lbs Requesting increase in Wegovy dose Please advise * Kim Wolfe - 10/02/2024 12:01 PM EST Patient is calling to see if Shania will increase her Ozempic to the next dose. She has been on 1 MG for about 3 months. She is also asking if we can prescribe her a CGM? Upcoming OV 11/20/24 documented in this encounter Plan of Treatment Upcoming Encounters Date Type Department Care Team (Late st Contact Info) Description 01/02/2025 1:00 PM EDT Office Visit Pulmonolgy - [place] [address] [facility] [address] [place] [address] Joie Francois NP [address] [facility] [address] [place] [address] [place] [address] 01/28/2025 8:45 AM EDT Office Visit Obstetrics and Gynecology - [address] [phone] Mirlande Norton, [address] 07/03/2025 7:30 AM EDT Office Visit Adult Medicine [facility] - [address] [phone] Sylvia Sandra MD [address] [place] [address] documented as of this encounter Visit Diagnoses Not on filedocumented in this encounter Care Teams Fitting Room Checker Relationship Specialty Start Date End Date Sylvia Sandra MD [address] [place] [address] PCP - General Internal Medicine 05/16/22 documented as of this encounter
--- OUTSIDE RECORDS SUMMARY | 2024-11-22 13:11 | XMS_ITS | Encounter Summary ---
Author Organization [facility] Address [address] [place] [address] Care Team Providers Care Polisher Sand Name Role Phone Sylvia Shultz MD Primary Care Prov ider Sin Kern MD Unavailable [phone] Reason for Visit * Reason Onset Date Comments DME Request 08/25/2022 Sleep study requ est Encounter Details Date Type Department Care Team Description 08/25/2022 Telephone Pulmonology - [place] 175 [facility] [address] [place] [phone] Joie Francois APRN 175 [facility] [address] [place] [phone] DME Request (Sleep study request ) Social History Tobacco Use Types Packs/Day Years [...] Telephone Encounter - Ceci Garibay M.A. - 08/25/2022 9:12 AM EST [facility] need most recent sleep study ordered by Joie on 06/19/22 Please contact Sleep Medicine Services at [phone] to request this sleep study once they fax the results please fax to [facility] then send the resutls to scan documented in this encounter Plan of Treatment Not on file documented as of this encounter Visit Diagnoses Not on filedocumented in this encounter Care Teams Polisher Sand Relationship Specialty Start Date End Date Sylvia Shultz MD [address] [place] [address] PCP - General Internal Medicine 05/16/22 Sin Kern MD 300 [facility] 154 [place] [address] Specialist Cardiovascular Disease 05/08/23 documented as of this encounter
--- OUTSIDE RECORDS SUMMARY | 2024-11-22 13:11 | XMS_ITS | Encounter Summary ---
Author Organization [facility] Address [address] [place] [address] Care Team Providers Care Roller Helper Name Role Phone Sylvia Shultz MD Primary Care Prov ider Sin Kern MD Unavailable [phone] Reason for Visit * Reason Onset Date Comments DME Request 12/05/2022 Denies CPAP Encounter Details Date Type Department Care Team Description 12/05/2022 Telephone Pulmonology - [place] 175 [facility] [address] [place] [phone] Joie Francois APRN 175 [facility] [address] [place] [phone] DME Request (Denies CPAP) Social History Tobacco Use Types Packs/Day Years [...] suspected to have Coronavirus/COVID-19? No / Unsure 12/08/2022 2:37 PM EST documented as of this encounter Miscellaneous Notes * Telephone Encounter - Erin Jermaine Sultana - 12/06/2022 9:44 AM EST Patient was denied because order was sent with older sleep study that showed an AHI of 2.3, [facility] they latest sleep study. documented in this encounter Plan of Treatment Not on file documented as of this encounter Visit Diagnoses Not on filedocumented in this encounter Care Teams Roller Helper Relationship Specialty Start Date End Date Sylvia Shultz MD [address] [place] [address] PCP - General Internal Medicine 05/16/22 Sin Kern MD [address] [place] [address] Specialist Cardiovascular Disease 05/08/23 documented as of this encounter
--- OUTSIDE RECORDS SUMMARY | 2024-11-22 13:11 | XMS_ITS | Encounter Summary ---
Author Organization [facility] Address [address] [place] [address] Care Team Providers Care Macerator Operator Name Role Phone Sylvia Shultz MD Primary Care Prov ider Sin Kern MD Unavailable [phone] Reason for Visit * Reason Onset Date Comments DME Request 12/02/2022 Encounter Details Date Type Department Care Team Description 12/02/2022 Telephone Pulmonology - [place] 175 [facility] [address] [place] [phone] Joie Francois APRN 175 [facility] 200 [place] [phone] DME Request Social History Tobacco Use Types Packs/Day [...] encounter Miscellaneous Notes * Telephone Encounter - Arnaldo Schwartz - 12/02/2022 3:26 PM EST Patient called stating that Joie put in rx for CPAP machineand eqipment but patient insurance did not cover the machine and got denied . is there anything that can be done so she can obtain a cpap machine please advice . thnks documented in this encounter Plan of Treatment Not on file documented as of this encounter Visit Diagnoses Not on filedocumented in this encounter Care Teams Macerator Operator Relationship Specialty Start Date End Date Sylvia Shultz MD [address] [place] [address] PCP - General Internal Medicine 05/16/22 Sin Kern MD 300 [facility] 154 [place] [address] Specialist Cardiovascular Disease 05/08/23 documented as of this encounter
--- OUTSIDE RECORDS SUMMARY | 2024-11-22 13:11 | XMS_ITS | Encounter Summary ---
Author Organization [facility] Address [address] [place] [address] Care Team Providers Care Waste Disposal Plant Operator Name Role Phone Sylvia Shultz MD Primary Care Prov ider Sin Kern MD Unavailable [phone] Encounter Details Date Type Department Care Team Description 09/13/2023 Orders Only Pulmonology - [place] 175 [facility] [address] [place] [phone] Joie Francosi, RACHEL 175 [facility] 200 [place] [phone] Primary insomnia; Snoring; Sleep-disordered breathing; Nocturnal hypoxemia Social History Tobacco Use Types Packs/Day Years [...] on file documented as of this encounter Plan of Treatment Not on file documented as of this encounter Procedures Procedure Name Priority Date/Time Associated Diagnosis Comments SLEEP STUDY-FULL NEURO 16 CHANNEL Routine 05/21/2022 Primary insomnia Snoring Sleep-disordered breathing Nocturnal hypoxemia documented in this encounter Results * SLEEP STUDY-FULL NEURO 16 CHANNEL (05/21/2022) 05/21/2022 Joie Francois WIRELESS TECHNICIAN PULMONOLOGY documented in this encounter Visit Diagnoses Diagnosis Primary insomnia Persistent disorder of initiating or maintaining sleep Snoring Other dyspnea and respiratory abnormality Sleep-disordered breathing Other sleep disturbances Nocturnal hypoxemia Hypoxemia documented in this encounter Care Teams Waste Disposal Plant Operator Relationship Specialty Start Date End Date Sylvia Shultz MD [address] [place] [address] PCP - General Internal Medicine 05/16/22 Sin Kern MD 300 [facility] 154 [place] [address] Specialist Cardiovascular Disease 05/08/23 documented as of this encounter
--- OUTSIDE RECORDS SUMMARY | 2024-11-22 13:11 | XMS_ITS | Encounter Summary ---
Author Organization [facility] Address [address] [place] [address] Care Team Providers Care Telephone Coin Box Collector Name Role Phone Remigio Jolley MD Primary Care Provider Un available Alicja Kelly MD Primary Care Provider Unavail able Noreen Pires MD Primary Care Provider [phone] Sylvia Shultz MD Primary Care Prov ider Sin Kern MD Unavailable [phone] Reason for Visit * Reason Onset Date Comments Provider Call Back 03/19/2018 Encounter Details Date Type Department Care Team Description 03/19/2018 Telephone Endocrinology - [place] [address] [place] [address] Phu Montelongo MD Provider Call Back Social History Tobacco Use Types Packs/Day Years Used Date Smoking Tobacco: Every Day Alcohol Use Standard Drinks/Week Comments Not Asked 0 (1 standard drink = 0.6 oz [...] encounter Miscellaneous Notes * Telephone Encounter - Francesca Melton L.P.N. - 03/23/2018 8:52 AM EDT appt given to patient for 04/04. Labs prior * Telephone Encounter - Phu Montelongo MD - 03/22/2018 5:08 PM EDT Please schedule an appt with me, get labs--ordered. * Telephone Encounter - Fay CHAVIS - 03/22/2018 10:31 AM EDT Mychart message from 03/10 states you wanted to talk to pt concerning her symptoms, not sure if you have all ready talk to her * Telephone Encounter - Abigail Shin - 03/19/2018 4:50 PM EDT Caller requesting call back from provider: Is the caller the patient? YES If caller is not the patient, what is the callers name? N/A Callers relationship to patient? N/A If person calling is not the patient themselves, is there a verbal release in FYI or permanent comments for this person: YES Reason for call back: Patient is returning Dr montelongo's message on my chart regarding medication Caller offered to speak with the nurse for assistance: YES Response: Patient offered to speak with nurse for assistance and patient agreed. Message forwarded to nurse. documented in this encounter Plan of Treatment Not on file documented as of this encounter Results * (ABNORMAL) FREE THYROXINE (T4) (04/03/2018 8:56 AM EDT) Free T4 0.35(L) 0.70 - 1.80 ng/dL 04/03/2018 1:32 PM EDT [facility] 04/03/2018 8:56 AM EDT 04/03/2018 8:56 AM EDT Phu Montelongo MD LAB Performing Organization Address [facility] Phone Number [address] * TSH (04/03/2018 8:56 AM EDT) TSH 1.45 0.40 - 4.00 mIU/ml 04/03/2018 1:32 PM EDT [facility] 04/03/2018 8:56 AM EDT 04/03/2018 8:56 AM EDT Phu Montelongo MD LAB Performing Organization Address [facility] Phone Number [address] documented in this encounter Visit Diagnoses Diagnosis Hyperthyroidism- Primary Thyrotoxicosis without mention of goiter or other cause, without mention of thyrotoxic crisis or storm documented in this encounter Care Teams Telephone Coin Box Collector Relationship Specialty Start Date End Date Remigio Jolley MD PCP - General Internal Medicine 05/12/1608/06 Alicja Kelly MD PCP - General Internal Medicine 08/07/19 09/16/21 Noreen Pires MD [address] [place] [address] PCP - General Internal Medicine 09/17/21 05/15/22 Sylvia Shultz MD [address] [place] [address] PCP - General Internal Medicine 05/16/22 Sin Kern MD [address] [address] Specialist Cardiovascular Disease 05/08/23 documented as of this encounter
--- OUTSIDE RECORDS SUMMARY | 2024-11-22 13:11 | XMS_ITS | Encounter Summary ---
Author Organization [facility] Address [address] [place] [address] Care Team Providers Care Animator Name Role Phone Remigio Jolley MD Primary Care Provider Un available Alicja Kelly MD Primary Care Provider Unavail able Noreen Pires MD Primary Care Provider [phone] Sylvia Shultz MD Primary Care Prov ider Sin Kern MD Unavailable [phone] Reason for Visit * Reason Onset Date Comments other 07/20/2018 Encounter Details Date Type Department Care Team Description 07/20/2018 Telephone Adult Medicine - [place] [address] [place] [address] Remigio Jolley MD other Social History Tobacco Use Types Packs/Day Years Used Date Smoking Tobacco: Every Day Smokeless Tobacco: Never Alcohol Use Standard Drinks/Week Comments Not Asked [...] encounter Miscellaneous Notes * Telephone Encounter - Pastora Koehler C.M.A. - 07/31/2018 1:16 PM EDT Mychart message to patient that phone lines are down. * Telephone Encounter - Phu Montelongo MD - 07/30/2018 9:00 PM EDT I attempted to call pt-no answer, message mailbox is full . * Telephone Encounter - Alivia Isaac L.P.NAzar - 07/20/2018 7:37 AM EDT Images from the original note were not included. ?? This message is to inform you that the patient has not yet read the following message. (Notification date: July 20, 2018) ?? thyroid ?? From Phu Montelongo MD To Sulma Harman Sent 07/19/2018 ??4:09 PM ?? Kody Ms. Harman, I would like to make certain of your Methimazole dose. Please let me know how many tablets/day you Usually take, so I can make a proper correction. Phu Montelongo MD ?? Audit [place] ?? MyChart User Last Read On Sulma Harman Not Read documented in this encounter Plan of Treatment Not on file documented as of this encounter Visit Diagnoses Not on filedocumented in this encounter Care Teams Animator Relationship Specialty Start Date End Date Remigio Jolley MD PCP - General Internal Medicine 05/12/1608/06 Alicja Kelly MD PCP - General Internal Medicine 08/07/19 09/16/21 Noreen Pires MD [address] [place] [address] PCP - General Internal Medicine 09/17/21 05/15/22 Sylvia Shultz MD [address] [place] [address] PCP - General Internal Medicine 05/16/22 Sin Kern MD [address] [place] [address] Specialist Cardiovascular Disease 05/08/23 documented as of this encounter
--- OUTSIDE RECORDS SUMMARY | 2024-11-22 13:11 | XMS_ITS | Encounter Summary ---
Author Organization [facility] Address [address] [place] [address] Care Team Providers Care Deployment Specialist Name Role Phone Remigio Jolley MD Primary Care Provider Un available Alicja Kelly MD Primary Care Provider Unavail able Noreen Pires MD Primary Care Provider [phone] Sylvia Shultz MD Primary Care Prov ider Sin Kern MD Unavailable [phone] Reason for Visit * Reason Onset Date Comments Testing 08/22/2018 Encounter Details Date Type Department Care Team Description 08/22/2018 Pt. Non Urgent Medical Question Adult Urgent Care - [address] [address] Phu Montelongo MD Social History Tobacco Use Types Packs/Day Years [...] as of this encounter Progress Notes * Alivia Isaac L.P.N. - 08/23/2018 7:54 AM ESTFrom: Sulma Harman To: Phu Montelongo MD Sent: 08/22/2018 4:59 PM EST Subject: Thyroid test appointment Good evening, Today I went to my thyroid test appointment at [facility] but I did not know I had to be off mymedication for at least four days, they reschedule the test for Monday, August 27, 2018, at 10:00am. Thank you Sulma Cedeño documented in this encounter Plan of Treatment Not on file documented as of this encounter Visit Diagnoses Not on filedocumented in this encounter Care Teams Deployment Specialist Relationship Specialty Start Date End Date Remigio Jolley MD PCP - General Internal Medicine 05/12/1608/06 Alicja Kelly MD PCP - General Internal Medicine 08/07/19 09/16/21 Noreen Pires MD [address] [place] [address] PCP - General Internal Medicine 09/17/21 05/15/22 Sylvia Shultz MD [address] [place] [address] PCP - General Internal Medicine 05/16/22 Sin Kern MD [address] [place] [address] Specialist Cardiovascular Disease 05/08/23 documented as of this encounter
--- OUTSIDE RECORDS SUMMARY | 2024-11-22 13:11 | XMS_ITS | Encounter Summary ---
Author Organization [facility] Address [address] [place] [address] Care Team Providers Care Entry Level Automotive Technician Name Role Phone Remigio Jolley MD Primary Care Provider Un available Alicja Kelly MD Primary Care Provider Unavail able Noreen Pires MD Primary Care Provider [phone] Sylvia Shultz MD Primary Care Prov ider Sin Kern MD Unavailable [phone] Reason for Visit * Reason Onset Date Comments other 06/12/2018 Encounter Details Date Type Department Care Team Description 06/12/2018 Pt. Non Urgent Medical Question Adult Urgent Care - [address] [address] Phu Montelongo MD Social History Tobacco Use [...] Progress Notes * Alivia Isaac L.P.N. - 06/12/2018 10:38 AM EDTFrom: Sulma Harman To: Phu Montelongo MD Sent: 06/12/2018 10:16 AM EDT Subject: Thyroide treatment Good morning, Dr. Montelongo We made the decision to the Iodine treatment. Sulma Cedeño Thank you documented in this encounter Plan of Treatment Not on file documented as of this encounter Visit Diagnoses Not on filedocumented in this encounter Care Teams Entry Level Automotive Technician Relationship Specialty Start Date End Date Remigio Jolley MD PCP - General Internal Medicine 05/12/1608/06 Alicja Kelly MD PCP - General Internal Medicine 08/07/19 09/16/21 Noreen Pires MD [address] [place] [address] PCP - General Internal Medicine 09/17/21 05/15/22 Sylvia Shultz MD [address] [place] [address] PCP - General Internal Medicine 05/16/22 Sin Kern MD [address] [place] [address] Specialist Cardiovascular Disease 05/08/23 documented as of this encounter
--- OUTSIDE RECORDS SUMMARY | 2024-11-22 13:11 | XMS_ITS | Encounter Summary ---
Author Organization [facility] [place] Address [address] [place] [address] Care Team Providers Care Nurse Advocate Name Role Phone Sylvia Shultz MD Primary Care Prov ider Sin Kern MD Unavailable [phone] Reason for Visit * Reason Onset Date Comments Sleep Apnea 09/21/2022 results Encounter Details Date Type Department Care Team Description 09/21/2022 Telephone Pulmonology - [place] [address] [phone] Joie Francois APRN 175 [facility] 200 [place] [phone] Sleep Apnea (results) Social History Tobacco Use Types Packs/Day Years [...] suspected to have Coronavirus/COVID-19? No / Unsure 09/21/2022 3:47 PM EST documented as of this encounter Miscellaneous Notes * Telephone Encounter - Ceci Garibay M.A. - 09/22/2022 9:17 AM EST Please obtain for SMS copy of her diagnostic sleep study was done on 05/21/2022. I had it but when itwent to scan it did not scan for some reason. Resutls requestes via fax documented in this encounter Plan of Treatment Not on file documented as of this encounter Visit Diagnoses Not on filedocumented in this encounter Care Teams Nurse Advocate Relationship Specialty Start Date End Date Sylvia Shultz MD [address] [place] [address] PCP - General Internal Medicine 05/16/22 Sin Kern MD [address] [place] [address] Specialist Cardiovascular Disease 05/08/23 documented as of this encounter
--- OUTSIDE RECORDS SUMMARY | 2024-11-22 13:11 | XMS_ITS | Encounter Summary ---
Author Organization [facility] Address [address] [place] [address] Care Team Providers Care Building Construction Estimator Name Role Phone Remigio Jolley MD Primary Care Provider Un available Alicja Kelly MD Primary Care Provider Unavail able Noreen Pires MD Primary Care Provider [phone] Sylvia Shultz MD Primary Care Prov ider Sin Kern MD Unavailable [phone] Encounter Details Date Type Department Care Team Description 07/15/2018 Orders Only Adult Medicine [facility] [address] [place] [address] Phu Montelongo MD Social History Tobacco Use [...] on filedocumented in this encounter Care Teams Building Construction Estimator Relationship Specialty Start Date End Date Remigio Jolley MD PCP - General Internal Medicine 05/12/1608/06 Alicja Kelly MD PCP - General Internal Medicine 08/07/19 09/16/21 Noreen Pires MD [address] [place] [address] PCP - General Internal Medicine 09/17/21 05/15/22 Sylvia Shultz MD [address] [place] [address] PCP - General Internal Medicine 05/16/22 Sin Kern MD [address] [place] [address] Specialist Cardiovascular Disease 05/08/23 documented as of this encounter
--- OUTSIDE RECORDS SUMMARY | 2024-11-22 13:11 | XMS_ITS | Encounter Summary ---
Author Organization [facility] Address [address] [place] [address] Care Team Providers Care Commodity Director Name Role Phone Remigio Jolley MD Primary Care Provider Un available Alicja Kelly MD Primary Care Provider Unavail able Noreen Pires MD Primary Care Provider [phone] Sylvia Shultz MD Primary Care Prov ider Sin Kern MD Unavailable Reason for Visit * Reason Onset Date Comments medication problems 05/07/2018 Encounter Details Date Type Department Care Team Description 05/07/2018 Telephone Adult [address] [address] Remigio Jolley MD medication problems Social History Tobacco Use Types Packs/Day Years [...] encounter Miscellaneous Notes * Telephone Encounter - Bishop Nichole PA-C - 05/07/2018 4:40 PM EDT This med came from Endo, please route to ordering prescriber. * Telephone Encounter - Keila Gaytan M.A. - 05/07/2018 2:40 PM EDT Please sign, the one on 04/04/18 was historic. Not an actual rx. * Telephone Encounter - Masha Monroe - 05/07/2018 2:37 PM EDT Images from the original note were not included. Who is calling? The patient Name of the medication MethIMAzole What is the specific problem or interaction? Patient states pharmacy is out of refills, and states they never received 5 refills on 04/04 If the patient is having a problem with taking the med - how long has the problem been going on? N/A documented in this encounter Plan of Treatment Not on file documented as of this encounter Visit Diagnoses Not on filedocumented in this encounter Care Teams Commodity Director Relationship Specialty Start Date End Date Remigio Jolley MD PCP - General Internal Medicine 05/12/1608/06 Alicja Kelly MD PCP - General Internal Medicine 08/07/19 09/16/21 Noreen Pires MD [address] [place] [address] PCP - General Internal Medicine 09/17/21 05/15/22 Sylvia Shultz MD [address] [place] [address] PCP - General Internal Medicine 05/16/22 Sin Kern MD [address] [place] [address] Specialist Cardiovascular Disease 05/08/23 documented as of this encounter
--- OUTSIDE RECORDS SUMMARY | 2024-11-22 13:11 | XMS_ITS | Encounter Summary ---
Author Organization [facility] Address [address] [place] [address] Care Team Providers Care Finish Carpenter Name Role Phone Noreen Pires MD Primary Care Provider [phone] Sylvia Shultz MD Primary Care Prov ider Sin Kern MD Unavailable [phone] Reason for Visit * Reason Comments E-prescribe Rx Request Encounter Details Date Type Department Care Team Description 03/06/2022 Refill Adult Medicine [address] [phone] Noreen Pires MD [address] [place] [address] [id number] E-prescribe Rx Request Social History Tobacco Use Types Packs/Day Years Used Date Smoking Tobacco: Every Day Cigarettes 0.3 16 Smokeless Tobacco: Never Alcohol [...] suspected to have Coronavirus/COVID-19? No / Unsure 03/03/2022 9:09 AM EDT documented as of this encounter Miscellaneous Notes * Telephone Encounter - Lindsey Martin - 03/08/2022 9:17 AM EDT Bobbi 10/26/21 Ov 04/05/22 Lab Results Component Value Date NA 136 06/02/2020 K 4.1 06/02/2020 CO2 26 06/02/2020 CL 104 06/02/2020 BUN 10 06/02/2020 CREAT 0.57 06/02/2020 GLU 93 06/02/2020 CA 9.3 06/02/2020 GFR > 60 06/02/2020 * Telephone Encounter - Mary Ashton - 03/07/2022 12:06 PM EDT Images from the original note were not included. Possible duplicate documented in this encounter Plan of Treatment Not on file documented as of this encounter Visit Diagnoses Not on filedocumented in this encounter Care Teams Finish Carpenter Relationship Specialty Start Date End Date Noreen Pires MD [address] [place] [address] PCP - General Internal Medicine 09/17/21 05/15/22 Sylvia Shultz MD [address] [place] [address] PCP - General Internal Medicine 05/16/22 Sin Kern MD [address] [address] Specialist Cardiovascular Disease 05/08/23 documented as of this encounter
--- OUTSIDE RECORDS SUMMARY | 2024-11-22 13:11 | XMS_ITS | Encounter Summary ---
Author Organization [facility] Address [address] [place] [address] Care Team Providers Care Hand Washer Name Role Phone Remigio Jolley MD Primary Care Provider Un available Alicja Kelly MD Primary Care Provider Unavail able Noreen Pires MD Primary Care Provider [phone] Sylvia Shultz MD Primary Care Prov ider Sin Kern MD Unavailable [phone] Encounter Details Date Type Department Care Team Description 03/15/2019 Telephone Adult Medicine [facility] [address] [place] [address] Phu Montelongo MD Social History Tobacco Use [...] on filedocumented in this encounter Care Teams Hand Washer Relationship Specialty Start Date End Date Remigio Jolley MD PCP - General Internal Medicine 05/12/1608/06 Alicja Kelly MD PCP - General Internal Medicine 08/07/19 09/16/21 Noreen Pires MD [address] [place] [address] PCP - General Internal Medicine 09/17/21 05/15/22 Sylvia Shultz MD [address] [place] [address] PCP - General Internal Medicine 05/16/22 Sin Kern MD [address] [place] [address] Specialist Cardiovascular Disease 05/08/23 documented as of this encounter
--- OUTSIDE RECORDS SUMMARY | 2024-11-22 13:11 | XMS_ITS | Encounter Summary ---
Author Organization [facility] Address [address] [place] [address] Care Team Providers Care Cost Control Analyst Name Role Phone Remigio Jolley MD Primary Care Provider Un available Alicja Kelly MD Primary Care Provider Unavail able Noreen Pires MD Primary Care Provider [phone] Sylvia Shultz MD Primary Care Prov ider Sin Kern MD Unavailable [phone] Encounter Details Date Type Department Care Team Description 09/25/2018 SCAN Medical Records [address] [place] [address] Abstract, Provider Social History Tobacco Use Types Packs/Day Years [...] on filedocumented in this encounter Care Teams Cost Control Analyst Relationship Specialty Start Date End Date Remigio Jolley MD PCP - General Internal Medicine 05/12/1608/06 Alicja Kelly MD PCP - General Internal Medicine 08/07/19 09/16/21 Noreen Pires MD [address] [place] [address] PCP - General Internal Medicine 09/17/21 05/15/22 Sylvia Shultz MD [address] [place] [address] PCP - General Internal Medicine 05/16/22 Sin Kern MD [address] [place] [address] Specialist Cardiovascular Disease 05/08/23 documented as of this encounter
--- OUTSIDE RECORDS SUMMARY | 2024-11-22 13:11 | XMS_ITS | Encounter Summary ---
Author Organization [facility] Address [address] [place] [address] Care Team Providers Care Senior Dot Net Developer Name Role Phone Sylvia Shultz MD Primary Care Prov ider Sin Kern MD Unavailable [phone] Encounter Details Date Type Department Care Team Description 10/26/2022 Shirt Closer Report Medical Records [address] [place] [address] Margaret Blevins PA-C Social History Tobacco Use Types Packs/Day Years [...] suspected to have Coronavirus/COVID-19? No / Unsure 09/28/2022 12:55 PM EST documented as of this encounter Plan of Treatment Not on file documented as of this encounter Visit Diagnoses Not on filedocumented in this encounter Care Teams Senior Dot Net Developer Relationship Specialty Start Date End Date Sylvia Shultz MD [address] [place] [address] PCP - General Internal Medicine 05/16/22 Sin Kern MD [address] [place] [address] Specialist Cardiovascular Disease 05/08/23 documented as of this encounter
--- OUTSIDE RECORDS SUMMARY | 2024-11-22 13:11 | XMS_ITS | Encounter Summary ---
Author Organization [facility] Address [address] [place] [address] Care Team Providers Care Rug Cutter Helper Name Role Phone Remigio Jolley MD Primary Care Provider Un available Alicja Kelly MD Primary Care Provider Unavail able Noreen Pires MD Primary Care Provider [phone] Sylvia Shultz MD Primary Care Prov ider Sin Kern MD Unavailable [phone] Reason for Visit * Reason Onset Date Comments other 08/13/2018 Encounter Details Date Type Department Care Team Description 08/13/2018 Telephone Endocrinology - [address] [address] Phu Montelongo MD other Social History Tobacco Use Types [...] encounter Miscellaneous Notes * Telephone Encounter - Alivia Isaac L.P.N. - 08/13/2018 7:33 AM EDT Images from the original note were not included. ?? This message is to inform you that the patient has not yet read the following message. (Notification date: August 11, 2018) ?? Thyroid ?? From Phu Montelongo MD To Sulma Harman Sent 08/09/2018 ??8:44 PM ?? Ms. Harman, I do need to speak with you about the thyroid. Please call me at [phone] Phu Montelongo MD ?? Audit [place] ?? [employer] [facility] User Last Read On Sulma Harman Not Read ?? documented in this encounter Plan of Treatment Not on file documented as of this encounter Visit Diagnoses Not on filedocumented in this encounter Care Teams Rug Cutter Helper Relationship Specialty Start Date End Date Remigio Jolley MD PCP - General Internal Medicine 05/12/1608/06 Alicja Kelly MD PCP - General Internal Medicine 08/07/19 09/16/21 Noreen Pires MD [address] [place] [address] PCP - General Internal Medicine 09/17/21 05/15/22 Sylvia Shultz MD [address] [place] [address] PCP - General Internal Medicine 05/16/22 Sin Kern MD [address] [place] [address] Specialist Cardiovascular Disease 05/08/23 documented as of this encounter
--- OUTSIDE RECORDS SUMMARY | 2024-11-22 13:11 | XMS_ITS | Encounter Summary ---
Author Organization [facility] Address [address] [place] [address] Care Team Providers Care Pallet Repairer Name Role Phone Sylvia Shultz MD Primary Care Prov ider Sin Kern MD Unavailable [phone] Reason for Visit * Reason Onset Date Comments Sleep Study 06/13/2022 Encounter Details Date Type Department Care Team Description 06/13/2022 Telephone Pulmonology - [place] [address] [facility] [address] [place] [phone] Joie Francois APRN [address] [facility] [address] [place] [phone] Sleep Study Social History Tobacco Use Types [...] on filedocumented in this encounter Care Teams Pallet Repairer Relationship Specialty Start Date End Date Sylvia Shultz MD [address] [place] [address] PCP - General Internal Medicine 05/16/22 Sin Kern MD [address] [place] [address] Specialist Cardiovascular Disease 05/08/23 documented as of this encounter
--- OUTSIDE RECORDS SUMMARY | 2024-11-22 13:11 | XMS_ITS | Encounter Summary ---
Author Organization [facility] Address [address] [place] [address] Care Team Providers Care Wilderness Guide Name Role Phone Noreen Pires MD Primary Care Provider [phone] Sylvia Shultz MD Primary Care Prov ider Sin Kern MD Unavailable [phone] Encounter Details Date Type Department Care Team Description 01/10/2022 Orders Only Medical Records [address] [place] [address] Karen Avila PA-C Social History Tobacco Use Types Packs/Day [...] Procedure Name Priority Date/Time Associated Diagnosis Comments OUTSIDE SLEEP STUDY Routine 12/30/2021 documented in this encounter Results * OUTSIDE SLEEP STUDY (12/30/2021) Karen Avila PA-C PULMONOLOGY documented in this encounter Visit Diagnoses Not on filedocumented in this encounter Care Teams Wilderness Guide Relationship Specialty Start Date End Date Noreen Pires MD [address] [place] [address] PCP - General Internal Medicine 09/17/21 05/15/22 Sylvia Shultz MD [address] [place] [address] PCP - General Internal Medicine 05/16/22 Sin Kern MD [address] [place] [address] Specialist Cardiovascular Disease 05/08/23 documented as of this encounter
--- OUTSIDE RECORDS SUMMARY | 2024-11-22 13:11 | XMS_ITS | Encounter Summary ---
Author Organization [facility] Address [address] [place] [address] Care Team Providers Care Body Cleaner Name Role Phone Remigio Jolley MD Primary Care Provider Un available Alicja Kelly MD Primary Care Provider Unavail able Noreen Pires MD Primary Care Provider [phone] Sylvia Shultz MD Primary Care Prov ider Sin Kern MD Unavailable [phone] Encounter Details Date Type Department Care Team Description 05/24/2016 Transfer Records Medical Records [address] [place] [address] Abstract, Provider Social History Tobacco Use Types [...] on filedocumented in this encounter Care Teams Body Cleaner Relationship Specialty Start Date End Date Remigio Jolley MD PCP - General Internal Medicine 05/12/1608/06 Alicja Kelly MD PCP - General Internal Medicine 08/07/19 09/16/21 Noreen Pires MD [address] [place] [address] PCP - General Internal Medicine 09/17/21 05/15/22 Sylvia Shultz MD [address] [place] [address] PCP - General Internal Medicine 05/16/22 Sin Kern MD [address] [place] [address] Specialist Cardiovascular Disease 05/08/23 documented as of this encounter
--- OUTSIDE RECORDS SUMMARY | 2024-11-22 13:11 | XMS_ITS | Encounter Summary ---
Author Organization [facility] Address [address] [place] [address] Care Team Providers Care Sensor Operator Name Role Phone Sylvia Shultz MD Primary Care Prov ider Sin Kern MD Unavailable [phone] Reason for Visit * Reason Onset Date Comments Testing 09/27/2022 Encounter Details Date Type Department Care Team Description 09/27/2022 Telephone Cardio PVCA Diag Testing [address] [facility] [address] [place] [address] Niki Rose MD [address] [place] [address] Testing Social History Tobacco Use Types Packs/Day Years [...] encounter Miscellaneous Notes * Telephone Encounter - Shania Jacinto PA-C - 09/27/2022 4:[address] * Telephone Encounter - Claire Weston - 09/27/2022 2:57 PM EST Some providers are able to update a scheduled order, wheras others are not able to. Unfortunately, in this case you may need to submit a new order please. Thank you. * Telephone Encounter - Shania Jacinto PA-C - 09/27/2022 2:33 PM EST I can change diagnosis code but since echo is scheduled already I am not able to cancel order and added a new order. I am not sure how to add the diagnosis code to an order that is already been scheduled to be done. * Telephone Encounter - Claire Weston - 09/27/2022 12:05 PM EST Unfortunately this diagnosis is not considered medically necessary. Therefore, it is likely that the pt will be responsible for the cost of the ECHO. Please advise. Thank you. * Telephone Encounter - Shania Jacinto PA-C - 09/27/2022 11:10 AM EST This is because patient is going to be started on carbergoline, and it cannot be started if there is history of valvular disorder. I order echo to rule out any valvular heart disease. * Telephone Encounter - Claire Weston - 09/27/2022 9:34 AM EST This patient is coming in 1-25-23 for an ECHO. The order has a diagnosis of Pituitary microadenoma. Please review your office note to see if there is another diagnosis including signs/symptoms that can be associated with this test and update the order as the dx associated is not considered a medically necessary diagnosis for the test ordered. Thank you! documented in this encounter Plan of Treatment Not on file documented as of this encounter Results * ECHO COMPLETE WITH CONTRAST IF CLINICALLY INDICATED (04/06/2023) Shania Jacinto PA-C CARDIOLOGY PVCA documented in this encounter Visit Diagnoses Diagnosis Hyperthyroidism- Primary Thyrotoxicosis without mention of goiter or other cause, without mention of thyrotoxic crisis or storm Palpitations documented in this encounter Care Teams Sensor Operator Relationship Specialty Start Date End Date Sylvia Shultz MD [address] [place] [address] PCP - General Internal Medicine 05/16/22 Sin Kern MD [address] [facility] [address] [place] [address] Specialist Cardiovascular Disease 05/08/23 documented as of this encounter
--- OUTSIDE RECORDS SUMMARY | 2024-11-22 13:11 | XMS_ITS | Encounter Summary ---
Author Organization [facility] Address [address] [place] [address] Care Team Providers Care Pourer Crane Ladle Name Role Phone Remigio Jolley MD Primary Care Provider Un available Alicja Kelly MD Primary Care Provider Unavail able Noreen Pires MD Primary Care Provider [phone] Sylvia Shultz MD Primary Care Prov ider Sin Kern MD Unavailable [phone] Encounter Details Date Type Department Care Team Description 07/19/2018 Pt. Non Urgent Medical Question Adult Urgent Care - [address] [address] Phu Montelonog MD Social History Tobacco Use Types Packs/Day [...] as of this encounter Progress Notes * Evie Riddle M.A - 07/19/2018 8:28 AM EDTFrom: Sulma Harman To: Phu Montelongo MD Sent: 07/19/2018 1:50 AM EDT Subject: Medications Good evening,Dr. Montelongo I was wondering when can we start the Iodine treatment because I been using this medications for years and there hasn't be much improvement or if theres maybe another medication I can take ,and also I want to know if I should take the propranol every other day or every day. Thank you Sulma Cedeño documented in this encounter Plan of Treatment Not on file documented as of this encounter Visit Diagnoses Not on filedocumented in this encounter Care Teams Pourer Crane Ladle Relationship Specialty Start Date End Date Remigio oJlley MD PCP - General Internal Medicine 05/12/1608/06 Alicja Kelly MD PCP - General Internal Medicine 08/07/19 09/16/21 Noreen Pires MD [address] [place] [address] PCP - General Internal Medicine 09/17/21 05/15/22 Sylvia Shultz MD [address] [place] [address] PCP - General Internal Medicine 05/16/22 Sin Kern MD [address] [place] [address] Specialist Cardiovascular Disease 05/08/23 documented as of this encounter
--- OUTSIDE RECORDS SUMMARY | 2024-11-22 13:11 | XMS_ITS | Encounter Summary ---
Author Organization [facility] Address [address] [place] [address] Care Team Providers Care Mining Professionals Name Role Phone Remigio oJlley MD Primary Care Provider Un available Alicja Kelly MD Primary Care Provider Unavail able Noreen Pires MD Primary Care Provider [phone] Sylvia Shultz MD Primary Care Prov ider Sin Kern MD Unavailable [phone] Reason for Visit * Reason Onset Date Comments Provider Call Back 09/11/2018 Encounter Details Date Type Department Care Team Description 09/11/2018 Telephone Endocrinology - [place] [address] [place] [address] Phu Montelongo MD Provider Call Back Social [...] encounter Miscellaneous Notes * Telephone Encounter - Phu Montelongo MD - 09/11/2018 4:53 PM EST Spoke with pt start Prednisone 1 day after LEDBETTER. See me 10 days or so after procedure * Telephone Encounter - Glenna Hensley M.A. - 09/11/2018 11:40 AM EST I do not see documentation of a call. Dr Montelongo, did you call patient? * Telephone Encounter - Wendy Davila - 09/11/2018 11:34 AM EST Caller requesting call back from provider: Is the caller the patient? YES If caller is not the patient, what is the callers name? N/A Callers relationship to patient? N/A If person calling is not the patient themselves, is there a verbal release in FYI or permanent comments for this person: YES Reason for call back: Pt returned call she states Dr. Montelongo called to call office. Caller offered to speak with the nurse for assistance: YES Response: Patient offered to speak with nurse for assistance and patient agreed. Message forwarded to nurse. documented in this encounter Plan of Treatment Not on file documented as of this encounter Visit Diagnoses Not on filedocumented in this encounter Care Teams Mining Professionals Relationship Specialty Start Date End Date Remigio Jolley MD PCP - General Internal Medicine 05/12/1608/06 Alicja Kelly MD PCP - General Internal Medicine 08/07/19 09/16/21 Noreen Pires MD [address] [place] [address] PCP - General Internal Medicine 09/17/21 05/15/22 Sylvia Shultz MD [address] [place] [address] PCP - General Internal Medicine 05/16/22 Sin Kern MD [address] [facility] [address] [place] [address] Specialist Cardiovascular Disease 05/08/23 documented as of this encounter
--- OUTSIDE RECORDS SUMMARY | 2024-11-22 13:11 | XMS_ITS | Encounter Summary ---
Author Organization [facility] Address [address] [place] [address] Care Team Providers Care Music Critic Name Role Phone Remigio Jolley MD Primary Care Provider Un available Alicja Kelly MD Primary Care Provider Unavail able Noreen Pires MD Primary Care Provider [phone] Sylvia Shultz MD Primary Care Prov ider Sin Kern MD Unavailable [phone] Encounter Details Date Type Department Care Team Description 11/30/2017 Walk In Clinic Visit Medical Records [address] [place] [address] Social History Tobacco Use Types Packs/Day Years [...] on filedocumented in this encounter Care Teams Music Critic Relationship Specialty Start Date End Date Remigio Jolley MD PCP - General Internal Medicine 05/12/1608/06 Alicja Kelly MD PCP - General Internal Medicine 08/07/19 09/16/21 Noreen Pires MD [address] [place] [address] PCP - General Internal Medicine 09/17/21 05/15/22 Sylvia Shultz MD [address] [place] [address] PCP - General Internal Medicine 05/16/22 Sin Kern MD [address] [place] [address] Specialist Cardiovascular Disease 05/08/23 documented as of this encounter
--- OUTSIDE RECORDS SUMMARY | 2024-11-22 13:11 | XMS_ITS | Encounter Summary ---
Author Organization [facility] Address [address] [place] [address] Care Team Providers Care Assistant Manager Retail Name Role Phone Sylvia Shultz MD Primary Care Prov ider Sin Kern MD Unavailable [phone] Encounter Details Date Type Department Care Team Description 09/27/2022 Orders Only Endocrinology - [place] [address] [place] [address] Shania Jacinto PA-C [address] [place] [address] Social History Tobacco Use Types Packs/Day Years [...] on filedocumented in this encounter Care Teams Assistant Manager Retail Relationship Specialty Start Date End Date Sylvia Shultz MD [address] [place] [address] PCP - General Internal Medicine 05/16/22 Sin Kern MD [address] [place] [address] Specialist Cardiovascular Disease 05/08/23 documented as of this encounter
--- OUTSIDE RECORDS SUMMARY | 2024-11-22 13:12 | XMS_ITS | Encounter Summary ---
Author Organization [facility] Address [address] [place] [address] Care Team Providers Care Bung Driver Name Role Phone Sylvia Shultz MD Primary Care Prov ider Sin Kern MD Unavailable [phone] Encounter Details Date Type Department Care Team Description 08/22/2022 Telephone OBGYN - [facility] [address] [place] [address] Mirlande Norton, YENNY [address] [place], [place] [phone] Social History Tobacco Use Types Packs/Day Years [...] encounter Miscellaneous Notes * Telephone Encounter - Rosalina Dior R.N. - 08/22/2022 3:03 PM EST ----- Message from Mirlande Norton CNM sent at 08/16/2022 4:02 PM EDT ----- Normal uterus and 2 ovarian cyst were noted. We will repeat a sonogram in 6-8 weeks to verify resolution. Please review ovarian torsion warning signs, pt should call the office sooner if have severe abdominal pain. She should call radiology to schedule repeat US. Order placed. Did she resume keller? If not, she should do provera challenge Mirlande Norton CNM Call to patient; update on u/s reported to patient along with order to have repeat sonogram in 6-8 weeks done (phone number to radiology given for patient to schedule). She has not resumed menses yet, and continues to take provera. Warning signs of ovarian torsion reviewed and when to call office to be seen. Patient has no other questions/concerns. documented in this encounter Plan of Treatment Not on file documented as of this encounter Visit Diagnoses Not on filedocumented in this encounter Care Teams Bung Driver Relationship Specialty Start Date End Date Sylvia Shultz MD [address] [place] [address] PCP - General Internal Medicine 05/16/22 Sin Kern MD [address] [place] [address] [address] [place] [address] Specialist Cardiovascular Disease 05/08/23 documented as of this encounter
--- OUTSIDE RECORDS SUMMARY | 2024-11-22 13:12 | XMS_ITS | Encounter Summary ---
Author Organization [facility] Address [address] [place] [address] Care Team Providers Care Boot Lace Cutter Machine Name Role Phone Sylvia Shultz MD Primary Care Prov ider Sin Kern MD Unavailable Reason for Visit * Reason Comments E-prescribe Rx Request Encounter Details Date Type Department Care Team Description 03/29/2024 Refill Endocrinology - [place] [address] [place] [address] Shania Jacinto PA-C [address] [place] [address] E-prescribe Rx Request Social History Tobacco Use [...] encounter Miscellaneous Notes * Telephone Encounter - Enmanuel Noble R.N. - 03/29/2024 12:05 PM EDT L[facility] 01/02/24 OV 03/22/24 Lab Results Component Value Date HGBA1C 11.2 01/08/2024 MALBUR 30.6 06/13/2023 MALBCR 28.5 06/13/2023 CHOL 251 06/13/2023 LDL TNP 06/13/2023 HDL 55 06/13/2023 TRIG 530 06/13/2023 GLU 285 01/02/2024 CREAT 0.83 06/13/2023 * Telephone Encounter - Candie Huertas - 03/29/2024 11:59 AM EDT Patient would like script to be: E-PRESCRIBED/FAXED TO PHARMACY WHEN WAS THE PATIENT'S LAST APPOINTMENT IN ADULT MEDICINE? 12/06/22 WHEN WAS THE LAST TIME THE PATIENT SAW THEIR PCP? Same as above Does patient have an upcoming appointment? Yes 07/04/24 (THE MEDICATION REQUESTED IS ON THE MED LIST ABOVE) All of the medications requested were on the CURRENT MEDS list Did you check the Pharmacy information above?: YES Patient wants: 90 -day supply Is this a mail order prescription request ? NO If the refill is from a FAXED refill request what is the RX # listed on the fax? N/A Patients current insurance carrier is: Payor: [employer] [facility] / Plan: PPO $20/$35 [id number] [id number] / Product Type: PPO [id number] documented in this encounter Plan of Treatment Not on file documented as of this encounter Visit Diagnoses Diagnosis Type 2 diabetes mellitus with other specified complication, unspecified whether screw driver operator insulin use (HCC) documented in this encounter Care Teams Boot Lace Cutter Machine Relationship Specialty Start Date End Date Sylvia Shultz MD [address] [place] [address] PCP - General Internal Medicine 05/16/22 Sin Kern MD [address] [place] [address] Specialist Cardiovascular Disease 05/08/23 documented as of this encounter
--- OUTSIDE RECORDS SUMMARY | 2024-11-22 13:12 | XMS_ITS | Encounter Summary ---
Author Organization [facility] Address [address] [place] [address] Care Team Providers Care Manager Solution Name Role Phone Alicja Kelly MD Primary Care Provider Unavail able Noreen Pires MD Primary Care Provider [phone] Sylvia Shultz MD Primary Care Prov ider Sin Kern MD Unavailable [phone] Encounter Details Date Type Department Care Team Description 08/02/2021 Telephone Endocrinology - [place] [address] [place] [address] Shania Jacinto PA-C [address] [place] [address] Social History Tobacco Use Types Packs/Day Years [...] Exposure Response Date Recorded In the last month, have you been in contact with someone who was confirmed or suspected to have Coronavirus / COVID-19? No / Unsure 08/04/2021 8:57 AM EDT documented as of this encounter Miscellaneous Notes * Telephone Encounter - Fay Fuentes SHIKHAMagali - 08/02/2021 1:10 PM EDT Left message for pt to call office * Telephone Encounter - Fay Fuentes PARTHA - 08/02/2021 1:10 PM EDT ----- Message from Shania Jacinto PA-C sent at 08/02/2021 12:17 PM EDT ----- Please let patient know that thyroid levels are still elevated, but I just recently increased her medication. I want her to recheck levels in 4 weeks documented in this encounter Plan of Treatment Not on file documented as of this encounter Visit Diagnoses Not on filedocumented in this encounter Care Teams Manager Solution Relationship Specialty Start Date End Date Alicja Kelly MD PCP - General Internal Medicine 08/07/19 09/16/21 Noreen Pires MD [address] [place] [address] PCP - General Internal Medicine 09/17/21 05/15/22 Sylvia Shultz MD [address] [place] [address] PCP - General Internal Medicine 05/16/22 Sin Kern MD [address] [facility] [address] [place] [address] Specialist Cardiovascular Disease 05/08/23 documented as of this encounter
--- OUTSIDE RECORDS SUMMARY | 2024-11-22 13:12 | XMS_ITS | Encounter Summary ---
Author Organization [facility] Address [address] [place] [address] Care Team Providers Care Final Armature Tester Name Role Phone Sylvia Sandra MD Primary Care Prov ider Reason for Referral * Consultation (Routine) - Pending Review Specialty Diagnoses / Procedures Referred By Vasquez bernal Referred To Contact Ophthalmology Diagnoses Type 2 diabetes mellitus with other specified complication, unspecified whether fci insulin use ([facility]) Shania Jacinto PA [address] [place] [address] Referral ID Status Reason Start Date Expiration Date Visits Requested Visits Authorized [id number] Pending Review Specialty Services Required 11/20/2024 11/20/2025 1 1 * Medications - Pending Review Specialty Diagnoses / Procedures Referred By Vasquez bernal Referred To Contact Diagnoses Type 2 diabetes mellitus with other specified complication, unspecified whether terminal computer operator insulin use ([facility]) Shania Jacinto PA [address] [place] [address] Referral ID Status Reason Start Date Expiration Date V isits Requested Visits Authorized [id number] Pending Review 1 1 Reason for Visit * Reason Comments Diabetes Encounter Details Date Type Department Care Team ([facility] st Contact Info) Description 11/20/2024 2:45 PM EST Office Visit Endocrinology [address], [place] [phone] Shania Jacinto PA [address] [place] [address] Type 2 diabetes mellitus with other specified complication, unspecified whether terminal computer operator insulin use (CMS/HCC) (Primary Dx); Microalbuminuria; Hyperthyroidism; Pituitary microadenoma (CMS/HCC) Social History Tobacco Use Types Packs/Day Years Used Date Smoking Tobacco: Former Cigarettes Smokeless Tobacco: Never Tobacco Cessation:Counseling Given: Not Answered Alcohol Use Standard Drinks/Week Comments No 0 (1 standard drink = 0.6 oz pur e alcohol) Sex and Gender Information Value Date Recorded Sex Assigned at Not on file Gender Identity Not on file Sexual Orientation Not on file Job Start Date Occupation Industry Not on file Not on file Not on file documented as of this encounter Last Filed Vital Signs Vital Sign Reading Time Taken Comments Blood Pressure 112/68 11/20/2024 2:50 PM EST C Pulse 87 11/20/2024 2:50 PM EST Temperature 36.2 ??C (97.2 ??F) 11/20/2024 2:50 PM ES T Respiratory Rate - - Oxygen Saturation 96% 11/20/2024 2:50 PM EST Inhaled Oxygen Concentration - - Weight 150 kg (330 lb 9.6 oz) 11/20/2024 2:50 PM EST Height 175.3 cm (5' 9 ) 11/20/2024 2:50 PM EST Body Mass Index 48.82 11/20/2024 2:50 PM EST documented in this encounter Ordered Prescriptions Prescription Sig Dispensed Refills Start Date End Da te semaglutide (OZEMPIC) 1 mg/dose (4 mg/3 mL) injection penIndications:Type 2 diabetes mellitus with other specified complication, unspecified whether fci insulin use (CMS/HCC) Inject 1 mg under the skin every 7 (seven) days. 9 mL 1 11/20/2024 methIMAzole (TAPAZOLE) 10 mg tablet Take 1 tablet (10 mg total) by mouth 1 (one) time each day. 90 tablet 3 11/20/2024 documented in this encounter Progress Notes * Radha Auqino MA - 11/20/2024 2:45 PM EST FSBS - 192 - NON fasting * CLEMENCIA Robles - 11/20/2024 2:45 PM EST CHIEF COMPLAINT: Diabetes IDENTIFIER: Sulma Cedeño is a 44 y.o. old female. HPI: Patient presents for diabetes follow-up. Past medical history type 2 diabetes, hyperlipidemia, pituitary microadenoma, obesity, hypothyroidism, bipolar disorder, anxiety and depression Diabetes: Hemoglobin A1c Lab Results Component Value Date HGBA1C 6.1 07/04/202401/06: 11.2 Last A1c improved significantly. Blood sugar in the office 192 Blood sugars at home she states are in the low 100s. No numbers above 140 She is due for blood work Diabetic medication Metformin 500 mg 1 tablet twice a day Ozempic 0.5 mg. She would like to go up on dose No side effects to current regimen. She mentions that she did notice some weight loss at the beginning. But now has had a plateau Hyperthyroidism: Patient diagnosed with hyperthyroidism in 2018. Treated with radioactive iodine. This did not treathyperthyroidism and this she was started on methimazole 10 mg daily. She is due for blood work Pituitary microadenoma. History of elevated prolactin level. Last time checked normal She had a MRI that demonstrated a pituitary microadenoma 0.3 x 0.2 x 0.1 in October 2021. This was rechecked in September 2022 that MRI demonstrated no definitive pituitary microadenoma . Wt Readings from Last 3 Encounters: 11/20/24 150 kg (330 lb 9.6 oz) 11/15/24 150 kg (331 lb) 10/04/24 148 kg (326 lb 12.8 oz) ROS: GENERAL: No malaise, significant weight loss or fever HEENT: No changes in hearing or vision, nose bleeds or other nasal problems RESPIRATORY: No cough, wheezing or shortness of breath CARDIOVASCULAR: No chest pain, leg swelling or palpitations GI: No abdominal discomfort, blood in stools or black stools ENDOCRINE: See HPI MUSCULOSKELETAL: No joint pain or swelling, back pain, or muscle pain. NEURO: No persistent headache, syncope, seizures, weakness or numbness PAST MEDICAL HISTORY: Patient Active Problem List Diagnosis Date Noted Morbid obesity with BMI of 50.0-59.9, adult ([facility] 08/29/2024 Abnormal echocardiogram 08/02/2023 Type 2 diabetes mellitus with other specified complication ([facility]) 06/26/2023 Microalbuminuria 06/26/2023 Pure hypercholesterolemia 12/09/2022 Bipolar 2 disorder ([facility]) 12/08/2022 Obstructive sleep apnea hypopnea, moderate 06/14/2022 Nocturnal hypoxemia 01/10/2022 Pituitary microadenoma ([facility]) 11/12/2021 Elevated prolactin level 11/12/2021 Suicidal ideations 06/14/2021 Lumbar spinal stenosis 04/16/2021 Degenerative joint disease (DJD) of lumbar spine 04/16/2021 Primary insomnia 07/17/2020 Anxiety and depression 07/17/2020 Palpitations 08/16/2019 Graves' orbitopathy 03/19/2019 Hyperthyroidism 05/19/2016 SOCIAL HISTORY: Social History Tobacco Use Smoking status: Former Current packs/day: 0.25 Types: Cigarettes Smokeless tobacco: Never Substance Use Topics Alcohol use: No FAMILY HISTORY: Family Status Relation Name Status Mother Alive Father Alive PGF (Not Specified) No partnership data on file Family History Problem Relation Name Age of Onset No Known Problems Mother Diabetes Father Breast cancer Paternal Grandfather Lung cancer Paternal Grandfather ACTIVE MEDICATIONS: Outpatient Medications Marked as Taking for the 11/20/24 encounter (Office Visit) with CLEMENCIA Robles Medication Sig Dispense Refill albuterol HFA (PROAIR HFA ; PROVENTIL HFA ; VENTOLIN HFA) 90 mcg/actuation inhaler Inhale 2 Puffs into the lungs 4 times daily as needed for Cough, Wheezing or Shortness of Breath (or chest tighness). cariprazine (Vraylar) 1.5 mg capsule Take 1 Capsule by mouth daily. cholecalciferol (VITAMIN D-3) 125 mcg (5,000 unit) capsule Take 1 capsule (5,000 Units total) by mouth 1 (one) time each day. hydrOXYzine HCL (ATARAX) 25 mg tablet Take 1 Tablet by mouth daily as needed. hydrOXYzine HCL (ATARAX) 50 mg tablet Take 1 tablet (50 mg total) by mouth at bedtime as needed. atbedtime ibuprofen (ADVIL,MOTRIN) 800 mg tablet TAKE 1 TABLET BY MOUTH EVERY 8 HOURS NEEDED FOR PAIN lamoTRIgine (LaMICtal) 200 mg tablet Take 1 tablet (200 mg total) by mouth 1 (one) time each day. medroxyPROGESTERone (PROVERA) 10 mg tablet Take 1 tablet (10 mg total) by mouth 1 (one) time each day for 10 days. 10 tablet 3 melatonin [address] ONE (1) TABLET IN MOUTH AND ALLOW TO DISSOLVE AT BEDTIME metFORMIN XR (GLUCOPHAGE-XR) 500 mg 24 hr tablet TAKE 1 TABLET BY MOUTH TWICE A DAY WITH MEALS methIMAzole (TAPAZOLE) 10 mg tablet Take 1 tablet (10 mg total) by mouth 1 (one) time each day. 90 tablet 3 prazosin (MINIPRESS) 1 mg capsule Take 1 Capsule by mouth at bedtime. [DISCONTINUED] methIMAzole (TAPAZOLE) 10 mg tablet TAKE 1 TABLET BY MOUTH EVERY DAY [DISCONTINUED] semaglutide (Ozempic) 0.25 mg or 0.5 mg (2 mg/3 mL) injection pen INJECT 0.5 MG INTOTHE SKIN EVERY 7 DAYS. 3 mL 0 ALLERGIES: Penicillins, Shrimp, and Other PHYSICAL EXAM: Blood pressure 112/68, pulse 87, temperature 36.2 ??C (97.2 ??F), temperature source Temporal, height 1.753 m (69 ), weight 150 kg (330 lb 9.6 oz), last menstrual period 09/07/2024, SpO2 96%. Body mass index is 48.82 kg/m??. BMI is greater than 25.0 (above the normal range) - see Plan APPEARANCE: Alert and in no acute distress EXTREMITIES: Extremities warm and well perfused without clubbing, cyanosis, or edema FOOT: Sensory exam of the foot is normal , tested with the monofilament. 2+ dorsalis pedis pulses, no lesions or ulcers. NEURO: Awake, alert and oriented x 3 LABS: Lab Results Component Value Date HGBA1C 6.1 07/04/2024 CHOL 251 (A) 06/13/2023 HDL 55 06/13/2023 TRIG 530 (A) 06/13/2023 Lab Results Component Value Date GLUCOSE 192 11/20/2024 No results found for: TSH IMAGING: IMPRESSION: 1. Type 2 diabetes mellitus with other specified complication, unspecified whether fci insulin use (CMS/HCC) 2. Microalbuminuria 3. Hyperthyroidism 4. Pituitary microadenoma (CMS/HCC) PLAN: Patient presents to the office for diabetes follow-up. 1. Diabetes: Last A1c at goal. Recheck labs Increase Ozempic to 1 mg to help with additional weight loss Continue metformin Importance of lowering intake of foods high in carbs and sugars and focusing on weight loss discussed 2. Microalbuminuria: Labs ordered 3. Hypothyroidism: Check TSH 4. Pituitary microadenoma: Last MRI unremarkable. Check prolactin level All questions and concerns were addressed. Patient understands and agrees with this treatment plan.Patient was reminded to call or return to the office if any new or existing problems arise This document was made using voice recognition software. It may contain some errors in grammar or syntax Medication and lab orders: Type 2 diabetes mellitus with other specified complication, unspecified whether fci insulin use (CMS/[facility]) (Primary) - POC glucose manually resulted - Hemoglobin A1c; Future - Basic metabolic panel; Future - Lipid panel with reflex to direct LDL; Future - Microalbumin creatinine urine ratio; Future - Thyroid stimulating hormone with reflex to free t4 and free t3; Future - CBC and differential; Future - semaglutide (OZEMPIC) 1 mg/dose (4 mg/3 mL) injection pen; Inject 1 mg under the skin every 7 (seven) days. Dispense: 9 mL; Refill: 1 - Ambulatory referral to Ophthalmology; Future Microalbuminuria Hyperthyroidism Pituitary microadenoma (CMS/HCC) - Prolactin; Future Other orders - methIMAzole (TAPAZOLE) 10 mg tablet; Take 1 tablet (10 mg total) by mouth 1 (one) time each day. Dispense: 90 tablet; Refill: 3 CLEMENCIA Robles on 11/20/2024 at 3:18 PM EST documented in this encounter Plan of Treatment Upcoming Encounters Date Type Department Care Team (Late st Contact Info) Description 01/02/2025 1:00 PM EDT Office Visit Pulmonolgy - [place] [address] [facility] [place] [phone] Joie Francois NP [address] [place] [address] 01/28/2025 8:45 AM EDT Office Visit Obstetrics and Gynecology [address] [phone] Mirlaned Norton, LIA [address] [place] [address] 07/03/2025 7:30 AM EDT Office Visit [facility] - [address] [phone] Sylvia Sandra MD [address] [place] [address] Scheduled Orders Name Type Priority Associated Diagnoses Orde r Schedule Hemoglobin A1c Lab Routine Type 2 diabetes mellitus with other specified complication, unspecified whether terminal computer operator insulin use ([facility]) 1 Occurrences starting 11/20/2024 until 11/20/2025 Basic metabolic panel Lab Routine Type 2 diabetes mellitus with other specified complication, unspecified whether fci insulin use ([facility]) 1 Occurrences starting 11/20/2024 until 11/20/2025 Lipid panel with reflex to direct LDL Lab Routine Type 2 diabetes mellitus with other specified complication, unspecified whether fci insulin use ([facility]) 1 Occurrences starting 11/20/2024 until 11/20/2025 Microalbumin creatinine urine ratio Lab Routine Type 2 diabetes mellitus with other specified complication, unspecified whether fci insulin use ([facility]) 1 Occurrences starting 11/20/2024 until 11/20/2025 Thyroid stimulating hormone with reflex to free t4 and free t3 Lab Routine Type 2 diabetes mellitus with other specified complication, unspecified whether terminal computer operator insulin use ([facility]) 1 Occurrences starting 11/20/2024 until 11/20/2025 CBC and differential Lab Routine Type 2 diabetes mellitus with other specified complication, unspecified whether fci insulin use ([facility]) 1 Occurrences starting 11/20/2024 until 11/20/2025 Prolactin Lab Routine Pituitary microadenoma ([facility]) 1 Occurrences starting 11/20/2024 until 11/20/2025 Scheduled Referrals Name Type Priority Associated Diagnoses Order Schedule Ambulatory referral to Ophthalmology Outpatient Referral Routine Type 2 diabetes mellitus with other specified complication, unspecified whether terminal computer operator insulin use ([facility]) 1 Occurrences starting 11/20/2024 until 11/20/2025 documented as of this encounter Procedures Procedure Name Priority Date/Time Associated Diagnosis Comments POC GLUCOSE Routine 11/20/2024 2:54 PM EST Type 2 diabetes mellitus with other specified complication, unspecified whether terminal computer operator insulin use ([facility]) documented in this encounter Results * POC glucose manually resulted (11/20/2024 2:54 PM EST) Glucose POC 192 mg/dL Comment:non-fasting Blood Capillary blood specimen / Unknown 11/20/2024 2:54 PM EST Shania KHANNA POINT OF CARE TEST ENTER/EDIT ORDERABLES documented in this encounter Visit Diagnoses Diagnosis Type 2 diabetes mellitus with other specified complication, unspecified whether fci insulin use ([facility])- Primary Microalbuminuria Proteinuria Hyperthyroidism Thyrotoxicosis without mention of goiter or other cause, without mention of thyrotoxic crisis or storm Pituitary microadenoma ([facility]) Benign neoplasm of pituitary gland and craniopharyngeal duct (pouch) documented in this encounter Discontinued Medications Medication Sig Discontinue Reason Start Date End Da te beclomethasone dipropionate (Qvar RediHaler) 40 mcg/actuation HFA aerosol breath activated inhalerIndications:Mil d persistent asthma without complication Inhale 2 puffs by mouth 1 (one) time each day. Discontinued by another clinician 10/04/2024 11/20/2024 blood sugar diagnostic (FreeStyle Lite Strips) test strip Use to check BS daily Alternate therapy 04/23/2024 11/20/2024 blood-glucose meter (FREESTYLE LITE METER MISC) Blood Glucose Monitoring Suppl (FreeStyle Lite) Device Patient sig: Use to check BS daily Alternate therapy 06/13/2023 11/20/2024 FREESTYLE LANCETS MISC Use to check BS daily Alternate therapy 04/23/2024 11/20/2024 hydrOXYzine pamoate (VISTARIL) 50 mg capsule Take 1 Capsule by mouth at bedtime as needed. Duplicate order 11/20/2024 lamoTRIgine (LaMICtal) 100 mg tablet TAKE 2 TABLETS BY MOUTH EVERY DAY Duplicate order 11/20/2024 semaglutide (Ozempic) 0.25 mg or 0.5 mg (2 mg/3 mL) injection pen INJECT 0.5 MG INTO THE SKIN EVERY 7 DAYS. Formulary change 10/28/2024 11/20/2024 methIMAzole (TAPAZOLE) 10 mg tablet TAKE 1 TABLET BY MOUTH EVERY DAY Reorder 11/20/2024 documented as of this encounter Care Teams Final Armature Tester Relationship Specialty Start Date End Date Sylvia Sandra MD [address] [place] [id number] PCP - General Internal Medicine 05/16/22 documented as of this encounter
--- OUTSIDE RECORDS SUMMARY | 2024-11-22 13:12 | XMS_ITS | Encounter Summary ---
Author Organization [facility] Address [address] [place] [address] Care Team Providers Care Curriculum Manager Name Role Phone Alicja Kelly MD Primary Care Provider Unavail able Noreen Pires MD Primary Care Provider [phone] Sylvia Shultz MD Primary Care Prov ider Sin Kern MD Unavailable [phone] Encounter Details Date Type Department Care Team Description 08/02/2021 Orders Only Endocrinology - [place] [address] [place] [address] Shania Jacinto PA-C [address] [place] [address] Hyperthyroidism (Primary Dx) Social History Tobacco Use Types Packs/Day Years [...] AM EDT documented as of this encounter Plan of Treatment Not on file documented as of this encounter Results * THYROID PROFILE W/TSH (08/02/2021 1:10 PM EDT) TSH CASCADE 0.55 0.40 - 4.00 uIU/ml 08/02/2021 4:49 PM EDT [facility] 08/02/2021 1:10 PM EDT 08/02/2021 1:12 PM EDT Narrative [facility] - 08/02/2021 4:49 PM EDT Release to patient->Immediate Shania Jacinto PA-C LAB [facility] documented in this encounter Visit Diagnoses Diagnosis Hyperthyroidism- Primary Thyrotoxicosis without mention of goiter or other cause, without mention of thyrotoxic crisis or storm Hyperthyroidism Thyrotoxicosis without mention of goiter or other cause, without mention of thyrotoxic crisis or storm documented in this encounter Care Teams Curriculum Manager Relationship Specialty Start Date End Date Alicja Kelly MD PCP - General Internal Medicine 08/07/19 09/16/21 Noreen Pires MD [address] [place] [address] PCP - General Internal Medicine 09/17/21 05/15/22 Sylvia Shultz MD [address] [place] [address] PCP - General Internal Medicine 05/16/22 Sin Kern MD [address] [place] [address] Specialist Cardiovascular Disease 05/08/23 documented as of this encounter
--- OUTSIDE RECORDS SUMMARY | 2024-11-22 13:12 | XMS_ITS | Encounter Summary ---
Author Organization [facility] Address [address] [place] [address] Care Team Providers Care Plastic Tool Maker Name Role Phone Alicja Kelly MD Primary Care Provider Unavail able Noreen Pires MD Primary Care Provider [phone] Sylvia Shultz MD Primary Care Prov ider Sin Kern MD Unavailable [phone] Encounter Details Date Type Department Care Team Description 12/09/2020 Orders Only Adult Medicine [facility] [address] [place] [address] Phu Montelongo MD Hyperthyroidism (Primary Dx) Social History Tobacco Use [...] have Coronavirus / COVID-19? No / Unsure 11/18/2020 2:43 PM EST documented as of this encounter Plan of Treatment Not on file documented as of this encounter Results * TSH (09/14/2021 1:05 PM EST) TSH 2.41 0.40 - 4.00 uIU/ml 09/14/2021 5:23 PM EST [facility] 09/14/2021 1:05 PM EST 09/14/2021 1:05 PM EST Phu Montelongo MD LAB [email or web address] * TRIDOTHYRONINE,FREE (FT-3) (05/28/2021 9:09 AM EDT) FREE T3 329 230 - 420 pg/dl 05/28/2021 12:14 PM EDT [facility] 05/28/2021 9:09 AM EDT 05/28/2021 9:09 AM EDT Phu Montelongo MD LAB Performing Organization Address City/[facility] Co de Phone Number [email or web address] * FREE THYROXINE (FT4) (05/28/2021 9:09 AM EDT) FREE T4 (FREE THYROXINE) 1.14 0.70 - 1.80 ng/dL 05/28/2021 12:14 PM EDT [facility] 05/28/2021 9:09 AM EDT 05/28/2021 9:09 AM EDT Phu Montelongo MD LAB Performing Organization Address City/[facility]/ZIP Co de Phone Number [email or web address] documented in this encounter Visit Diagnoses Diagnosis Hyperthyroidism- Primary Thyrotoxicosis without mention of goiter or other cause, without mention of thyrotoxic crisis or storm documented in this encounter Care Teams Plastic Tool Maker Relationship Specialty Start Date End Date Alicja Kelly MD PCP - General Internal Medicine 08/07/19 09/16/21 Noreen Pires MD [address] [place] [id number] PCP - General Internal Medicine 09/17/21 05/15/22 Sylvia Shultz MD [address] [place] [address] PCP - General Internal Medicine 05/16/22 Sin Kern MD [address] [address] Specialist Cardiovascular Disease 05/08/23 documented as of this encounter
--- OUTSIDE RECORDS SUMMARY | 2024-11-22 13:12 | XMS_ITS | Encounter Summary ---
Author Organization [facility] Address [address] [place] [address] Care Team Providers Care Climatology Teacher Name Role Phone Sylvia Shultz MD Primary Care Prov ider Sin Kern MD Unavailable [phone] Reason for Visit * Reason Comments E-prescribe Rx Request Encounter Details Date Type Department Care Team Description 06/08/2024 Refill Endocrinology - [place] [address] [place] [address] Shania Jacinto PA-C [address] [place] [address] E-prescribe Rx Request Social History Tobacco Use [...] encounter Miscellaneous Notes * Telephone Encounter - Leola Norton M.A. - 06/10/2024 2:46 PM EDT Bobbi 03/22/24 Ov 07/04/24 Lab Results Component Value Date HGBA1C 11.2 01/08/2024 MALBUR 30.6 06/13/2023 MALBCR 28.5 06/13/2023 CHOL 251 06/13/2023 LDL TNP 06/13/2023 HDL 55 06/13/2023 TRIG 530 06/13/2023 GLU 285 01/02/2024 CREAT 0.83 06/13/2023 documented in this encounter Plan of Treatment Not on file documented as of this encounter Visit Diagnoses Diagnosis Type 2 diabetes mellitus with other specified complication, unspecified whether detention insulin use (HCC) documented in this encounter Care Teams Climatology Teacher Relationship Specialty Start Date End Date Sylvia Shultz MD [address] [place] [address] PCP - General Internal Medicine 05/16/22 Sin Kern MD [address] [facility] [address] [place] [address] Specialist Cardiovascular Disease 05/08/23 documented as of this encounter
--- OUTSIDE RECORDS SUMMARY | 2024-11-22 13:12 | XMS_ITS | Encounter Summary ---
Author Organization [employer] Address [address] [place] [address] Care Team Providers Care Security Checker Name Role Phone Sylvia Sandra MD Primary Care Prov ider Reason for Referral * Consultation (Routine) - Pending Review Specialty Diagnoses / Procedures Referred By Contmorales t Referred To Contact Endocrinology Diagnoses Patient desires Mirlande Norton CNM [address] [place] [address] Referral ID Status Reason Start Date Expiration Date Visits Requested Visits Authorized [id number] Pending Review Specialty Services Required 11/15/2024 11/15/2025 1 1 Reason for Visit * Reason Comments Menstrual Problem Encounter Details Date Type Department Care Team ([facility] Contact Info) Description 11/15/2024 2:45 PM EST Office Visit Obstetrics and Gynecology - [address] [address] Mirlande Norton CNM [address] [place] [address] Amenorrhea (Primary Dx); Urine test negative; Hyperthyroidism; Patient desires ; Obesity, morbid (CMS/HCC); Type 2 diabetes mellitus with other specified complication, unspecified whether correction insulin use (CMS/[facility]) Social History Tobacco Use Types Packs/Day Years [...] Sign Reading Time Taken Comments Blood Pressure 100/63 11/15/2024 3:01 PM EST Pulse 92 11/15/2024 3:01 PM EST Temperature - - Respiratory Rate - - Oxygen Saturation - - Inhaled Oxygen Concentration - - Weight 150 kg (331 lb) 11/15/2024 3:01 PM EST Height 175.3 cm (5' 9 ) 11/15/2024 3:01 PM EST Body Mass Index 48.88 11/15/2024 3:01 PM EST documented in this encounter Ordered Prescriptions Prescription Sig Dispensed Refills Start Date End Da te medroxyPROGESTERone (PROVERA) 10 mg tablet Take 1 tablet (10 mg total) by mouth 1 (one) time each day for 10 days. 10 tablet 3 11/15/2024 11/25/2024 documented in this encounter Progress Notes * Mirlande Norton, LIA - 11/15/2024 2:45 PM EST CHIEF COMPLAINT: Menstrual Problem IDENTIFIER: Sulma Cedeño is a 44 y.o. female. HPI: Sulma presents to office for evaluation of amenorrhea for the past 3 months. She usually has regular and monthly periods but occasionally will skip 2 months at a time, maybe once a year. She has a hx of hyperthyroidism, sees Endo- reports levels are well controlled on meds. She recently started Ozempic May 2024- for management of DMType 2. She also has a hx of pituitary microadenoma- sees Endocrinology for this. She has had normal PCOS work up in the past. Patient's last menstrual period was 09/07/2024. She and her would like to conceive, she would like a referral to RE. She has 1 previous hx of delivery, resulted in due to prematurity. They are currently not sexually active due to struggle with ED. She wants IVF. ROS: GENERAL: No malaise or fever GI: No abdominal discomfort : No dysuria, frequency or incontinence FIRER MARINE: No abnormal vaginal discharge. PAST MEDICAL HISTORY: OB History Para Term AB Living 1 1 0 1 SAB IAB Ectopic Multiple Live Births 1 # Outcome Date GA Lbr Ranjan/2nd Weight Sex Type Anes PTL Lv 1 2012 F Vag-Spont ND Patient Active Problem List Diagnosis Hyperthyroidism Graves' orbitopathy Palpitations Morbid obesity with BMI of 50.0-59.9, adult (CMS/HCC) Primary insomnia Anxiety and depression Lumbar spinal stenosis Degenerative joint disease (DJD) of lumbar spine Suicidal ideations Pituitary microadenoma (CMS/HCC) Elevated prolactin level Nocturnal hypoxemia Obstructive sleep apnea hypopnea, moderate Bipolar 2 disorder (CMS/HCC) Pure hypercholesterolemia Type 2 diabetes mellitus with other specified complication (CMS/HCC) Microalbuminuria Abnormal echocardiogram Past Surgical History: Procedure Laterality Date OTHER SURGICAL HISTORY PROCEDURE: DENIES PREVIOUS SURGERY SOCIAL HISTORY: Social History Tobacco Use Smoking status: Former Current packs/day: 0.25 Types: Cigarettes Smokeless tobacco: Never Substance Use Topics Alcohol use: No FAMILY HISTORY: Family History Problem Relation Name Age of Onset No Known Problems Mother Diabetes Father Breast cancer Paternal Grandfather Lung cancer Paternal Grandfather MEDICATIONS: There are no discontinued medications. ACTIVE MEDICATIONS: Outpatient Medications Marked as Taking for the 11/15/24 encounter (Office Visit) with Mirlande Norton CNM Medication Sig Dispense Refill albuterol HFA (PROAIR HFA ; PROVENTIL HFA ; VENTOLIN HFA) 90 mcg/actuation inhaler Inhale 2 Puffs into the lungs 4 times daily as needed for Cough, Wheezing or Shortness of Breath (or chest tighness). cholecalciferol (VITAMIN D-3) 125 mcg (5,000 unit) capsule Take 1 capsule (5,000 Units total) by mouth 1 (one) time each day. hydrOXYzine HCL (ATARAX) 25 mg tablet Take 1 Tablet by mouth daily as needed. hydrOXYzine HCL (ATARAX) 50 mg tablet Take 1 tablet (50 mg total) by mouth at bedtime as needed. atbedtime hydrOXYzine pamoate (VISTARIL) 50 mg capsule Take 1 Capsule by mouth at bedtime as needed. ibuprofen (ADVIL,MOTRIN) 800 mg tablet TAKE 1 TABLET BY MOUTH EVERY 8 HOURS NEEDED FOR PAIN lamoTRIgine (LaMICtal) 100 mg tablet TAKE 2 TABLETS BY MOUTH EVERY DAY lamoTRIgine (LaMICtal) 200 mg tablet Take 1 tablet (200 mg total) by mouth 1 (one) time each day. melatonin [address] ONE (1) TABLET IN MOUTH AND ALLOW TO DISSOLVE AT BEDTIME metFORMIN XR (GLUCOPHAGE-XR) 500 mg 24 hr tablet TAKE 1 TABLET BY MOUTH TWICE A DAY WITH MEALS methIMAzole (TAPAZOLE) 10 mg tablet TAKE 1 TABLET BY MOUTH EVERY DAY prazosin (MINIPRESS) 1 mg capsule Take 1 Capsule by mouth at bedtime. semaglutide (Ozempic) 0.25 mg or 0.5 mg (2 mg/3 mL) injection pen INJECT 0.5 MG INTO THE SKIN EVERY7 DAYS. 3 mL 0 PHYSICAL EXAM: Visit Vitals BP 100/63 Pulse 92 Ht 1.753 m (69 ) Wt 150 kg (331 lb) LMP 09/07/2024 BMI 48.88 kg/m?? OB Status Having periods Smoking Status Former BSA 2.56 m?? APPEARANCE: Alert and in no acute distress NEURO: Awake, alert and oriented x 3 LABS: HCG- Neg IMPRESSION: 1. Urine test negative 2. Hyperthyroidism 3. Patient desires 4. Amenorrhea PLAN: Irregular menses- Likely due to multiple endocrine etiology- thyroid, DM and pituitary microadenoma. Reviewed management options, she has chosen Provera if/when menses skipped x3 months. Will do provera challenge now. Monitor menses, reviewed risk of endometrial hyperplasia with prolonged amenorrhea- she verbalized understanding. Desires - Pt encouraged to continue with weight loss, Ozempic, exercise, control DM and Thyroid. She would be high risk if she did become as she is AMA in addition to chronic medical conditions. AMA also increases risk for delivery, SAB and chromosomal abnormalities. We also discussed while on Ozempic is not recommended. We discussed the importance of maintaining good nutritional status and acheiving and ideal body weight before conception. Good dietary habits are important for growing a healthy baby and prevent low weight. RE referral placed per pt request. RTO for annual and sooner if needed Medication and lab orders: Orders Placed This Encounter Procedures Thyroid stimulating hormone with reflex to free t4 and free t3 Ambulatory referral to Reproductive Endcrinology POC , urine manually resulted Other orders: AMB REFERRAL TO REPRODUCTIVE ENDOCRINOLOGY Total visit time 27 minutes reviewing chart, history, preconception counseling, reviewing menses and management options, writing Rx and documentation. Mirlande Norton CNM documented in this encounter Plan of Treatment Upcoming Encounters Date Type Department Care Team (Late st Contact Info) Description 01/02/2025 1:00 PM EDT Office Visit Pulmonolgy - [place] [address] [facility] [address] [place] [address] Joie Francois NP [address] [facility] [address] [place] [address] 01/28/2025 8:45 AM EDT Office Visit Obstetrics and Gynecology [address] [phone] Mirlande Norton CNM [address] [place] [address] 07/03/2025 7:30 AM EDT Office Visit Adult Medicine [facility] - [address] [phone] Sylvia Sandra MD [address] [place] [address] Scheduled Orders Name Type Priority Associated Diagnoses Orde r Schedule Thyroid stimulating hormone with reflex to free t4 and free t3 Lab Routine Hyperthyroidism 1 Occurrences starting 11/15/2024 until 11/15/2025 Scheduled Referrals Name Type Priority Associated Diagnoses Order Schedule Ambulatory referral to Reproductive Endcrinology Outpatient Referral Routine Patient desires 1 Occurrences starting 11/15/2024 until 11/15/2025 documented as of this encounter Procedures Procedure Name Priority Date/Time Associated Diagnosis Comments POC , URINE DIAGNOSTIC Routine 11/15/2024 3:07 PM EST Urine test negative documented in this encounter Results * POC , urine manually resulted (11/15/2024 3:07 PM EST) HCG, Ur POC Negative Negative POC hCG Int QC Pass? Yes Yes Urine Urine specimen obtained by clean catch procedure / Unknown 11/15/2024 3:07 PM EST Mirlande Norton CNM POINT OF CARE TEST E NTER/EDIT ORDERABLES documented in this encounter Visit Diagnoses Diagnosis Amenorrhea- Primary Absence of menstruation Urine test negative Hyperthyroidism Thyrotoxicosis without mention of goiter or other cause, without mention of thyrotoxic crisis or storm Patient desires Obesity, morbid (CMS/HCC) Morbid obesity Type 2 diabetes mellitus with other specified complication, unspecified whether sales office assistant insulin use ([facility]) documented in this encounter Historical Medications * This list may reflect changes made after this encounter. Medication Sig Dispensed Refills Start Date End Date lamoTRIgine (LaMICtal) 200 mg tablet Take 1 tablet (200 mg total) by mouth 1 (one) time each day. 10/28/2024 hydrOXYzine HCL (ATARAX) 50 mg tablet Take 1 tablet (50 mg total) by mouth at bedtime as needed. at bedtime 06/28/2024 melatonin [address] ONE (1) TABLET IN MOUTH AND ALLOW TO DISSOLVE AT BEDTIME 10/03/2024 cholecalciferol (VITAMIN D-3) 125 mcg (5,000 unit) capsule Take 1 capsule (5,000 Units total) by mouth 1 (one) time each day. 10/01/2024 added in this encounter Care Teams Security Checker Relationship Specialty Start Date End Date Sylvia Sandra MD [address] [place] [id number] PCP - General Internal Medicine 05/16/22 documented as of this encounter
--- OUTSIDE RECORDS SUMMARY | 2024-11-22 13:12 | XMS_ITS | Encounter Summary ---
Author Organization [facility] Address [address] [place] [address] Care Team Providers Care Harness Installer Name Role Phone Sylvia Shultz MD Primary Care Prov ider Sin Kern MD Unavailable [phone] Reason for Visit * Reason Onset Date Comments Prior Authorization 01/02/2024 Encounter Details Date Type Department Care Team Description 01/02/2024 Telephone Endocrinology - [place] [id number] [place] [address] Shania Jacinto PA-C [address] [place] [phone] Prior Authorization Social History Tobacco Use Types Packs/Day Years [...] encounter Miscellaneous Notes * Telephone Encounter - Malaika Palmer M.A. - 02/13/2024 8:59 AM EDT Auth approved Exp 02/08/25 Malaika Saavedra Auth Dep Ext [id number] * Telephone Encounter - Malaika Palmer M.A. - 02/08/2024 12:49 PM EDT Appealed denial with ov notes Malaika Saavedra Auth Dep Ext [id number] * Telephone Encounter - Malaika Palmer M.A. - 01/04/2024 10:03 AM EDT Auth sent with [facility] [id number] Malaika Saavedra Auth Dep Ext [id number] * Telephone Encounter - Katia Maurer - 01/02/2024 12:00 PM EDT Prior Authorization for Medication-do not complete and send this encounter unless you have the fax from the pharmacy. Is this a Cover My Meds request: Yes -- Zarate Code [id number] Name of Medication Ozempic Dose of Medication 0.25 or 0.5 MG What is the RX # from the faxed refill? N/a How does patient take this med? Inject 0.5 mg into skin every 7 days. Inject 0.25 mg weekly for thefirst month. Then increase to 0.5 mg after the first month. Then it will be 0.5 mg every 7 days. What Pharmacy did the fax come from: [facility] Pharm[facility] fax #: [phone] documented in this encounter Plan of Treatment Not on file documented as of this encounter Visit Diagnoses Not on filedocumented in this encounter Care Teams Harness Installer Relationship Specialty Start Date End Date Sylvia Shultz MD [address] [place] [address] PCP - General Internal Medicine 05/16/22 Sin Kern MD [address] [address] Specialist Cardiovascular Disease 05/08/23 documented as of this encounter
--- OUTSIDE RECORDS SUMMARY | 2024-11-22 13:12 | XMS_ITS | Clinical Summary ---
Author Organization [facility] Address [address] [place] [address] Care Team Providers Care Print Manager Name Role Phone Sylvia Shultz MD Primary Care Prov ider Sin Kern MD Unavailable [phone] Allergies Active Allergy Reactions Severity Noted Date Comments Penicillins Rash/Dermatitis 05/19/2016 Seasonal Allergies Low 03/30/2022 Shrimp Nausea and Vomiting 07/04/2024 GI upset Medications Medication Sig Dispensed Refills Start Date End Date Status hydrOXYzine (VISTARIL) 50 MG capsule Take 1 Capsule by mouth at bedtime as needed. 0 2 Active ibuprofen (ADVIL,MOTRIN) 800 MG tablet TAKE 1 TABLET BY MOUTH EVERY 8 HOURS NEEDED FOR PAIN 90 Tablet 0 2 Active ALBUTEROL SULFATE (ProAir HFA) 108 (90 Base) MCG/ACT Aero SolnIndications:Mi ld persistent asthma without complication Inhale 2 Puffs into the lungs 4 times daily as needed for Cough, Wheezing or Shortness of Breath (or chest tighness). 8.5 g 5 2 Active Blood Glucose Monitoring Suppl (FreeStyle Lite) DeviceIndications: Elevated blood sugar Use to check BS daily 1 Each 0 3 Active methimazole (TAPAZOLE) 10 MG tablet TAKE 1 TABLET BY MOUTH EVERY DAY 90 Tablet 1 4 Active Flovent HFA 110 MCG/ACT inhalerIndications :Mild persistent asthma without complication TAKE 1 PUFF BY MOUTH TWICE A DAY 1 g 3 4 Active Glucose Blood (FREESTYLE LITE) StripIndications:E levated blood sugar Use to check BS daily 100 Strip 5 4 Active FreeStyle Lancets MiscIndications:El evated blood sugar Use to check BS daily 100 Each 5 4 Active lamotrigine (LAMICTAL) 100 MG tablet TAKE 2 TABLETS BY MOUTH EVERY DAY 0 4 Active Cariprazine HCl 1.5 MG Cap Take 1 Capsule by mouth daily. 0 Active metformin (GLUCOPHAGE-XR) 500 MG 24 hr tabletIndications: Type 2 diabetes mellitus with other specified complication, unspecified whether ad terminal makeup operator insulin use (HCC) TAKE 1 TABLET BY MOUTH TWICE A DAY WITH MEALS 180 Tablet 1 4 Active prazosin (MINIPRESS) 1 MG capsuleIndications :Type 2 diabetes mellitus with other specified complication, unspecified whether care home insulin use (HCC) Take 1 Capsule by mouth at bedtime. 0 4 Active hydrOXYzine (ATARAX) 25 MG tabletIndications: Type 2 diabetes mellitus with other specified complication, unspecified whether ad terminal makeup operator insulin use (HCC) Take 1 Tablet by mouth daily as needed. 0 Active Semaglutide, 1 MG/DOSE, (Ozempic, 1 MG/DOSE,) 4 MG/3ML Solution Pen-injectorIndica tions:Type 2 diabetes mellitus with other specified complication, unspecified whether care home insulin use (HCC) Inject 1 mg into the skin every 7 days. 3 mL 5 4 Active levonorgestrel (MIRENA) 20 MCG/24HR IUDIndications:Enc ounter for insertion of intrauterine contraceptive device 1 Each by Intrauterine route Once. 1 Each 0 3 12/20/19 23 Discontinued Active Problems Problem Noted Date Abnormal echocardiogram 08/02/2023 Type 2 diabetes mellitus with other spec ified complication 06/26/2023 Microalbuminuria 06/26/2023 Pure hypercholesterolemia 12/09/2022 Bipolar 2 disorder 12/08/2022 Obstructive sleep apnea hypopnea, modera te 06/14/2022 Overview: [facility] Diagnostic sleep study: 05/21/2022 showed moderate sleep apnea which AHI of 23. Her AHI was 33. Her REM AHI was 52.4. Patient average saturation was 91% is low saturation was 76% she spent 18.6 minutes below 89%. There was 38 periodic limb movements. SMS Treatment Polysomnogram: Date 08/30/2022; Wt 336#; BMI 51.09; SE 45%; SM 47%; REM 0%; CPAP @ 12: AHI 4, REM AHI -, Central apneas 0; Obstructive apneas 0; Mixed apneas 0; hypopneas 14; average oxygen saturation 93% (lowest 88%); PL4 Nocturnal hypoxemia 01/10/2022 Overview: [facility] Home sleep test 12/30/2021; weight 320; BMI 49. AHI 2 with all hypopneas. Average oxygen saturation 91% with oxygen christiano 81%. Nocturnal hypoxemia without the diagnosis of sleep apnea based on 2021 home sleep test; oxygen saturations less than 88% for 69 minutes of the study (18% of study). Pituitary microadenoma 11/12/2021 Elevated prolactin level 11/12/2021 Suicidal ideations 06/14/2021 Overview: Presented to the hospital with suicidal ideations May 2021 Lumbar spinal stenosis 04/16/2021 Overview: Follows with neurosurgery, was referred to physical therapy no need of surgery at this time Degenerative joint disease (DJD) of lumb ar spine 04/16/2021 Primary insomnia 07/17/2020 Anxiety and depression 07/17/2020 Palpitations 08/16/2019 Overview: Related to hyperthyroidism, on propranolol Morbid obesity with BMI of 50.0-59.9, ad ult 08/16/2019 Graves' orbitopathy 03/19/2019 Hyperthyroidism 05/19/2016 Overview: 17.4 LEDBETTER 09/18/18 Immunizations Name Administration Dates Next Due COVID-19 (Pfizer) 12/03/2020 COVID-19 (Pfizer) Pt Reported 12/03/2020, 021 Influenza Vaccine-preservati ve Free-quadrivalent 4 Years 09/02/2019 Tdap 09/02/2019 Family History Medical History Relation Name Comments Diabetes Father No Known Problems Mother CA Breast Paternal Grandfather Cancer of the Lung Paternal Grandfather Relation Name Status Comments Father Mother Paternal Grandfather Social History Tobacco Use Types Packs/Day Years Used Date Smoking Tobacco: Former Cigarettes 0.3 16 Smokeless Tobacco: Never Tobacco Cessation:Counseling Given: Not [...] file Not on file Not on file Last Filed Vital Signs Vital Sign Reading Time Taken Comments Blood Pressure 108/78 07/04/2024 3:38 PM EDT C Pulse 80 07/04/2024 3:38 PM EDT Temperature 36.4 ??C (97.5 ??F) 07/04/2024 3:38 PM ED T Respiratory Rate 16 04/22/2024 3:25 PM EDT Oxygen Saturation 97% 04/22/2024 3:25 PM EDT Inhaled Oxygen Concentration - - Weight 144.1 kg (317 lb 9.6 oz) 07/04/2024 3:38 PM EDT Height 175.3 cm (5' 9 ) 07/04/2024 3:38 PM EDT Body Mass Index 46.9 07/04/2024 3:38 PM EDT Plan of Treatment Health Maintenance Due Date Last Done Comments DIABETES: ANNUAL FOOT EXAM 02/18/2000 PNEUMOCOCCAL VACCINE FOR HIG H RISK PATIENTS (#1) 2001 DIABETES: ANNUAL EYE EXAM 12/29/2018 12/29/2017, BASELINE HEALTH EXAM 40-64 2022 09/02/2019 MAMMOGRAM 08/10/2023 08/10/2022 DIABETES/HEART DISEASE: KHADIJAH AL CHOLESTEROL (LDL) 06/13/2024 06/13/2023, 06/13/2023, 10/27/2019, Additional history exists DIABETES: ANNUAL URINE PROTE IN TEST (MICROALBUMIN) 06/13/2024 06/13/2023 Covid-19 Vaccine (4 - 2022-2 4 season) 2024 12/03/2020, 12/03/2020, 11/11/2020 INFLUENZA (#1) 2024 09/02/2019 DIABETES: BLOOD SUGAR CONTRO L TEST (HGBA1C) 10/03/2024 07/04/2024, 01/08/2024, 06/13/2023, Additional history exists BMI CHECK/ADVISE 10/16/2024 07/04/2024, 05/2024, 03/22/2024, Additional history exists DEPRESSION SCREENING/FOLLOWUP 10/16/2024 (Completed), 10/26/2021, 08/04/2021, Additional history exists SOCIAL NEEDS SCREENING 10/16/2024 12/08/2022 CERVICAL CANCER SCREENING 03/30/2025 03/30/2022 DTAP/TDAP/TD (2 - Td or Tdap) 09/02/2029 09/02/2019 Care Teams Print Manager Relationship Specialty Start Date End Date Sylvia Shultz MD [address] [place] [id number] PCP - General Internal Medicine 05/16/22 Sin Kern MD [address] [facility] [address] [place] [address] Specialist Cardiovascular Disease 05/08/23
--- OUTSIDE RECORDS SUMMARY | 2024-11-22 13:12 | XMS_ITS | Clinical Summary ---
Author Organization [facility] Address [address] [place] [address] Care Team Providers Care Inverform Machine Operator Name Role Phone Sylvia Sandra MD Primary Care Prov ider Allergies Active Allergy Reactions Criticality Noted Date Comments Other Low 03/30/2022 Seasonal Allergies Penicillins Rash 05/19/2016 Shrimp Nausea And Vomiting 07/04/2024 GI upset Medications Medication Sig Dispensed Refills Start Date End Date Status prazosin (MINIPRESS) 1 mg capsule Take 1 Capsule by mouth at bedtime. Active hydrOXYzine HCL (ATARAX) 25 mg tablet Take 1 Tablet by mouth daily as needed. Active metFORMIN XR (GLUCOPHAGE-XR) 500 mg 24 hr tablet TAKE 1 TABLET BY MOUTH TWICE A DAY WITH MEALS Active cariprazine (Vraylar) 1.5 mg capsule Take 1 Capsule by mouth daily. Active albuterol HFA (PROAIR HFA ; PROVENTIL HFA ; VENTOLIN HFA) 90 mcg/actuation inhaler Inhale 2 Puffs into the lungs 4 times daily as needed for Cough, Wheezing or Shortness of Breath (or chest tighness). Active ibuprofen (ADVIL,MOTRIN) 800 mg tablet TAKE 1 TABLET BY MOUTH EVERY 8 HOURS NEEDED FOR PAIN Active cholecalciferol (VITAMIN D-3) 125 mcg (5,000 unit) capsule Take 1 capsule (5,000 Units total) by mouth 1 (one) time each day. 4 Active melatonin [address] ONE (1) TABLET IN MOUTH AND ALLOW TO DISSOLVE AT BEDTIME 4 Active hydrOXYzine HCL (ATARAX) 50 mg tablet Take 1 tablet (50 mg total) by mouth at bedtime as needed. at bedtime 4 Active lamoTRIgine (LaMICtal) 200 mg tablet Take 1 tablet (200 mg total) by mouth 1 (one) time each day. 5 Active medroxyPROGESTERon e (PROVERA) 10 mg tablet Take 1 tablet (10 mg total) by mouth 1 (one) time each day for 10 days. 10 tablet 3 5 11/25/19 25 Active methIMAzole (TAPAZOLE) 10 mg tablet Take 1 tablet (10 mg total) by mouth 1 (one) time each day. 90 tablet 3 5 Active semaglutide (OZEMPIC) 1 mg/dose (4 mg/3 mL) injection penIndications:Typ e 2 diabetes mellitus with other specified complication, unspecified whether fpc insulin use (CMS/[facility]) Inject 1 mg under the skin every 7 (seven) days. 9 mL 1 5 Active semaglutide (Ozempic) 1 mg/dose (4 mg/3 mL) injection pen Inject 1 mg into the skin every 7 days. 10/28/19 25 Discontinued blood sugar diagnostic (FreeStyle Lite Strips) test strip Use to check BS daily 4 11/20/19 25 Discontinued(Alt ernate therapy) FREESTYLE LANCETS MISC Use to check BS daily 4 11/20/19 25 Discontinued(Alt ernate therapy) lamoTRIgine (LaMICtal) 100 mg tablet TAKE 2 TABLETS BY MOUTH EVERY DAY 11/20/19 25 Discontinued(Dup licate order) methIMAzole (TAPAZOLE) 10 mg tablet TAKE 1 TABLET BY MOUTH EVERY DAY 11/20/19 25 Discontinued(Reo rder) blood-glucose meter (FREESTYLE LITE METER MISC) Blood Glucose Monitoring Suppl (FreeStyle Lite) Device Patient sig: Use to check BS daily 3 11/20/19 25 Discontinued(Alt ernate therapy) hydrOXYzine pamoate (VISTARIL) 50 mg capsule Take 1 Capsule by mouth at bedtime as needed. 11/20/19 25 Discontinued(Dup licate order) beclomethasone dipropionate (Qvar RediHaler) 40 mcg/actuation HFA aerosol breath activated inhalerIndications :Mild persistent asthma without complication Inhale 2 puffs by mouth 1 (one) time each day. 10.6 g 3 4 11/20/19 25 Discontinued(Dis continued by another clinician) semaglutide (Ozempic) 0.25 mg or 0.5 mg (2 mg/3 mL) injection pen INJECT 0.5 MG INTO THE SKIN EVERY 7 DAYS. 3 mL 5 11/20/19 25 Discontinued(For mulary change) Active Problems Problem Noted Date Diagnosed Date Morbid obesity with BMI of 50.0-59.9, adult 08/16 Abnormal echocardiogram 08/02/2023 Type 2 diabetes mellitus with other specified co mplication 06/26/2023 Microalbuminuria 06/26/2023 Pure hypercholesterolemia 12/09/2022 Bipolar 2 disorder 12/08/2022 Obstructive sleep apnea hypopnea, moderate 06/14 Overview (08/29/2024): [facility] Diagnostic sleep study: 05/21/2022 showed moderate sleep apnea which AHI of 23. Her AHI was 33. Her REM AHI was 52.4. Patient average saturation was 91% is low saturation was 76% she spent 18.6 minutes below 89%. There was 38 periodic limb movements. [facility] Treatment Polysomnogram: Date 08/30/2022; Wt 336#; BMI 51.09; SE 45%; SM 47%; REM 0%; CPAP @ 12: AHI 4, REM AHI -, Central apneas 0; Obstructive apneas 0; Mixed apneas 0; hypopneas 14; average oxygen saturation 93% (lowest 88%); PL4 Nocturnal hypoxemia 01/10/2022 Overview (08/29/2024): [facility] Home sleep test 12/30/2021; weight 320; BMI 49. AHI 2 with all hypopneas. Average oxygen saturation 91% with oxygen christiano 81%. Nocturnal hypoxemia without the diagnosis of sleep apnea based on 2021 home sleep test; oxygen saturations less than 88% for 69 minutes of the study (18% of study). Pituitary microadenoma 11/12/2021 Elevated prolactin level 11/12/2021 Suicidal ideations 06/14/2021 Overview (08/29/2024): Presented to the hospital with suicidal ideations May 2021 Lumbar spinal stenosis 04/16/2021 Overview (08/29/2024): Follows with neurosurgery, was referred to physical therapy no need of surgery at this time Degenerative joint disease (DJD) of lumbar spine 04/16/2021 Primary insomnia 07/17/2020 Anxiety and depression 07/17/2020 Palpitations 08/16/2019 Overview (08/29/2024): Related to hyperthyroidism, on propranolol Graves' orbitopathy 03/19/2019 Hyperthyroidism 05/19/2016 Overview (08/29/2024): 17.4 LEDBETTER 09/18/18 Encounters Date Type Department Care Team Description 11/20/2024 2:45 PM EST Office Visit Endocrinology - [address] [phone] Shania Jacinto PA Type 2 diabetes mellitus with other specified complication, unspecified whether fpc insulin use (CMS/HCC) (Primary Dx); Microalbuminuria; Hyperthyroidism; Pituitary microadenoma (CMS/HCC) 11/15/2024 2:45 PM EST Office Visit Obstetrics and Gynecology - [address] [phone] Mirlande Norton CNM Amenorrhea (Primary Dx); Urine test negative; Hyperthyroidism; Patient desires ; Obesity, morbid (CMS/HCC); Type 2 diabetes mellitus with other specified complication, 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 (CMS/HCC) 10/18/2024 Telephone Pulmonolgy [address] [phone] Jenna Tran MA DME request (CPAP supply order faxed to [facility]. Fax confirmation received. /) 10/04/2024 8:30 AM EST Office Visit Pulmonolgy [facility] [address] [phone] Joie Francois NP Obstructive sleep apnea hypopnea, moderate (Primary Dx); Nocturnal hypoxemia; Mild persistent asthma without complication 10/02/2024 Telephone Endocrinology [facility] [address] [place] [address] Shania Jacinto PA Med Change Request 09/16/2024 Telephone Pulmonolgy [address] [place] [address] Joie Francois NP Forms/questionnaires from Last 3 Months Immunizations Name Administration Dates Next Due Influenza Quadravalent, MDCK , 0.5ml, preservative free (Flucelvax) 6mo and older 09/02/2019 Pfizer SARS-CoV-2 COVID-19, mRNA, LNP-S, preservative free 12/03/2020,11/11/2020 Tdap Tetanus diptheria acell ular pertussis (Boostrix; Adacel) 7yo and older 09/02/2019 Surgical History Surgery Date Site/Laterality Comments OTHER SURGICAL HISTORY PROCEDURE: DENIES PREVIOUS SURGERY Medical History Medical History Date Comments Hyperthyroidism 05/19/2016 DX:Hyperthyroidi sm Morbid obesity with BMI of 5 0.0-59.9, adult ([facility]) 08/16/2019 DX:Morbid obesity with BMI o f 50.0-59.9, adult ([facility]) Diabetes type 2, controlled ([facility]) Family History Medical History Relation Name Comments Diabetes Father No Known Problems Mother Breast cancer Paternal Grandfather Lung cancer Paternal Grandfather Relation Name Status Comments Father Alive Mother Alive Paternal Grandfather Social History Tobacco Use Types [...] file Not on file Not on file Obstetrics History Para Term AB IAB SAB Ectopic Multiple Livin g Live Births 1 1 0 1 1 Date Outcome GA Total Labor Labor/2nd/3rd Weight Sex Type Anes PTL Idalia A1 A5 Name Clin 2012 F Vag-S pont Demise Last Filed Vital Signs Vital Sign Reading Time Taken Comments Blood Pressure 112/68 11/20/2024 2:50 PM EST C Pulse 87 11/20/2024 2:50 PM EST Temperature 36.2 ??C (97.2 ??F) 11/20/2024 2:50 PM ES T Respiratory Rate 16 10/04/2024 8:24 AM EST Oxygen Saturation 96% 11/20/2024 2:50 PM EST Inhaled Oxygen Concentration - - Weight 150 kg (330 lb 9.6 oz) 11/20/2024 2:50 PM EST Height 175.3 cm (5' 9 ) 11/20/2024 2:50 PM EST Body Mass Index 48.82 11/20/2024 2:50 PM EST Plan of Treatment Upcoming Encounters Date Type Department Care Team (Late st Contact Info) Description 01/02/2025 1:00 PM EDT Office Visit Pulmonolgy - [place] [address] [place] [phone] Joie Francois NP [address] [place] [address] 01/28/2025 8:45 AM EDT Office Visit Obstetrics and Gynecology [address] [phone] Mirlande Norton, [address] [address] 07/03/2025 7:30 AM EDT Office Visit [facility] - [address] [phone] Sylvia Sandra MD [address] [place] [phone] Health Maintenance Due Date Last Done Comments Pneumococcal Vaccine: Pediatrics (0 to 5 Years) and At-Risk Patients (6 to 64 Years) (1 of 2 - PCV) 02/18/1988 Diabetes: Annual Foot Exam 02/18/1992 Diabetes: Annual Retina Eye Exam 02/18/1992 Hepatitis B Vaccines (1 of 3 - 19+ 3-dose series) 2001 HIV Screening 11/23/2020 Hepatitis C Screening 11/23/2020 Social Influencers of Health Screening 11/23/2020 Depression Screening 12/08/2023 12/08/2022 Diabetes: Annual Urine Albumin-Creatinine Ratio (uACR) 06/13/2024 06/13/2023 Diabetes: Annual GFR (Glomerular Filtration Rate) 06/13/2024 06/13/2023 Breast Cancer Screening 08/10/2024 08/10/2022 Diabetes: Blood Sugar Control Test (HGBA1C) 01/01/2025 07/04/2024, 07/04/2024 Cervical Cancer Screening: HPV 03/30/2027 03/30/2022 Cholesterol Screening (Lipid Panel) 06/13/2028 06/13/2023 DTaP,Tdap,and Td Vaccines (2 - Td or Tdap) 09/02/2029 09/02/2019 COVID-19 Vaccine Completed 10/29/2024, , 12/03/2020, Additional history exists Influenza Vaccine Completed 10/29/2024, , 08/07/2022, Additional history exists HIB Vaccines Aged Out No longer eligi ble based on patient's age to complete this topic HPV Vaccines Aged Out No longer eligi ble based on patient's age to complete this topic Hepatitis A Vaccines Aged Out No long er eligible based on patient's age to complete this topic IPV Vaccines Aged Out No longer eligi ble based on patient's age to complete this topic MMR Vaccines Aged Out No longer eligi ble based on patient's age to complete this topic Meningococcal ACWY Vaccine Aged Out N o longer eligible based on patient's age to complete this topic RSV Immunization Patients Under 20 months Aged Out No longer eligible based on patient's age to complete this topic Varicella Vaccines Aged Out No longer eligible based on patient's age to complete this topic Procedures Procedure Name Priority Date/Time Associated Diagnosis Comments POC GLUCOSE Routine 11/20/2024 2:54 PM EST Type 2 diabetes mellitus with other specified complication, 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 ([facility]) POC , URINE DIAGNOSTIC Routine 11/15/2024 3:07 PM EST Urine test negative HEMOGLOBIN A1C Routine 07/04/2024 URINE ALBUMIN CREATININE RATIO Routine 06/13/2023 ANNUAL BMP BLOOD TEST Routine 06/13/2023 LIPID PANEL Routine 06/13/2023 DEPRESSION SCREENING Routine 12/08/2022 SCREENING MAMMOGRAPHY BI 2-VIEW BREAST INC CAD Routine 08/10/2022 10:11 AM EDT Encounter for gynecological examination (general) (routine) without abnormal findings HPV Routine 03/30/2022 from Last 3 Months or Most Recently Relevant to Health Maintenance Results * POC glucose manually resulted (11/20/2024 2:54 PM EST) Pathologist [facility] Glucose POC 192 mg/dL Comment:non-fasting Blood Capillary blood specimen / Unknown 11/20/2024 2:54 PM EST Shania KHANNA POINT OF CARE TEST ENTER/EDIT ORDERABLES * POC , urine manually resulted (11/15/2024 3:07 PM EST) Pathologist [facility] HCG, Ur POC Negative Negative POC hCG Int QC Pass? Yes Yes Urine Urine specimen obtained by clean catch procedure / Unknown 11/15/2024 3:07 PM EST Mirlande Norton CNM POINT OF CARE TEST E NTER/EDIT ORDERABLES * Hemoglobin A1c (07/04/2024) Pathologist [facility] Hemoglobin A1C 6.1 6.5 % Blood Venous blood specimen / Unknown Historical Provider LAB BLOOD ORDERAB LES * Urine Albumin Creatinine Ratio (06/13/2023) Pathologist [facility] Urine Albumin Creatinine Ratio Abstracted Historical Provider [facility] * Annual BMP Blood Test (06/13/2023) [facility] Annual BMP Blood Test Abstracted Historical Provider [facility] * (ABNORMAL) Lipid panel (06/13/2023) [facility] LDL/HDL Ratio 5(A) 0 - 4 Triglycerides 530(A) 0 - 150 mg/dL Cholesterol 251(A) 0 - 200 mg/dL HDL 55 40 mg/dL Blood Venous blood specimen / Unknown Historical Provider LAB BLOOD ORDERAB LES * Depression Screening (12/08/2022) [facility] Depression Screening Abstracted Historical Provider [facility] E * SCREENING MAMMOGRAPHY BI 2-VIEW BREAST INC CAD (08/10/2022 10:11 AM EDT) Anatomical Region Laterality Modality Radiographic Shikha ging 03/30/2022 11:0 0 AM EDT Narrative 08/10/2022 4:50 PM EDT This is a summary report. The complete report is available in the patient's medical record. If you cannot access the medical record, please contact the sending organization for a detailed fax or copy. Full field digital screening 2D and tomosynthesis mammography, reviewed with CAD and compared to previous. ??The breasts are composed of fatty and fibroglandular tissue. ??There is a small circumscribed nodular opacity in the right lateral breast. ??Additional assessment with ultrasound is recommended. ??We will contact the patient for the arrangements. ??No suspicious ??architectural distortion or suspicious calcifications are identified. IMPRESSION: : Small nodular opacity in the right breast. ??Additional evaluation with ultrasound is recommended. BI-RADS 0, incomplete, needs additional imaging evaluation. 5 year breast cancer risk assessment 0.4 % Lifetime breast cancer risk assessment 8.6 % Breast cancer risk category Low (<15%) Procedure Note Irina Watkins MD - 10/04/2022 This is a summary report. The complete report is available in thepatient's medical record. If you cannot access the medical record, pleasecontact the sending organization for a detailed fax or copy. Full field digital screening 2D and tomosynthesis mammography, reviewedwith CAD and compared to previous. The breasts are composed of fatty andfibroglandular tissue. There is a small circumscribed nodular opacity inthe right lateral breast. Additional assessment with ultrasound isrecommended. We will contact the patient for the arrangements. Nosuspicious architectural distortion or suspicious calcifications areidentified. IMPRESSION: : Small nodular opacity in the right breast. Additional evaluation withultrasound is recommended. BI-RADS 0, incomplete, needs additional imaging evaluation. 5 year breast cancer risk assessment 0.4 % Lifetime breast cancer risk assessment 8.6 % Breast cancer risk category Low (<15%) Cydney Edward CNM IMG XR PROC EDURES * Cervical Cancer Screening: HPV (03/30/2022) Cervical Cancer Screening: HPV Negative, Abstracted Historical Provider MD MAURICIO Montgomery from Last 3 Months or Most Recently Relevant to Health Maintenance Care Teams Inverform Machine Operator Relationship Specialty Start Date End Date Sylvia Sandra MD [address] [place] [phone] PCP - General Internal Medicine 05/16/22
--- OUTSIDE RECORDS SUMMARY | 2024-11-22 13:12 | XMS_ITS | Encounter Summary ---
Author Organization [facility] Address [address] [place] [address] Care Team Providers Care Director Corporate Sales Name Role Phone Alicja Kelly MD Primary Care Provider Unavail able Noreen Pires MD Primary Care Provider [phone] Sylvia Shultz MD Primary Care Prov ider Sin Kern MD Unavailable [phone] Reason for Visit * Reason Onset Date Comments refill request 10/13/2020 Encounter Details Date Type Department Care Team Description 10/13/2020 Refill Endocrinology - [place] [address] [place] [address] Phu Montelongo MD refill request Social History Tobacco Use Types Packs/Day Years [...] Miscellaneous Notes * Telephone Encounter - Fay CHAVIS - 10/23/2020 12:03 PM EST Pt has not come in for her lab work * Telephone Encounter - Brunilda Hicks M.A. - 10/15/2020 3:26 PM EST Left message to call back, BSR may tell pt she needs blood work first and may go to the [facility] lab over the weekend * Telephone Encounter - Phu Montelongo MD - 10/14/2020 8:53 PM EST Will need a blood test first before meds * Telephone Encounter - Jocelynn Monet M.A. - 10/14/2020 1:[address] Kelly is not willing to refill this, advises request be sent to Dr. Montelongo * Telephone Encounter - Duyen Guajardo - 10/13/2020 2:59 PM EST Patient would like script to be: E-PRESCRIBED/FAXED TO PHARMACY WHEN WAS THE PATIENT'S LAST APPOINTMENT IN ADULT MEDICINE? 06/02/2020 WHEN WAS THE LAST TIME THE PATIENT SAW THEIR PCP? 07/17/2020 Does patient have an upcoming appointment? Yes 11/18/[address] Montelongo (THE MEDICATION REQUESTED IS ON THE MED [...] N/A Patients current insurance carrier is: Payor: [employer] [facility] / Plan: CC-DONNA SILVER TYPE 2 / Product Type: HMO [id number] documented in this encounter Plan of Treatment Not on file documented as of this encounter Visit Diagnoses Not on filedocumented in this encounter Care Teams Director Corporate Sales Relationship Specialty Start Date End Date Alicja Kelly MD PCP - General Internal Medicine 08/07/19 09/16/21 Noreen Pires MD [address] [place] [id number] PCP - General Internal Medicine 09/17/21 05/15/22 Sylvia Shultz MD [address] [place] [id number] PCP - General Internal Medicine 05/16/22 Sin Kern MD [address] [place] [phone] Specialist Cardiovascular Disease 05/08/23 documented as of this encounter
--- OUTSIDE RECORDS SUMMARY | 2024-11-22 13:12 | XMS_ITS | Encounter Summary ---
Author Organization [facility] Address [address] [place] [address] Care Team Providers Care Pyrometer Operator Name Role Phone Sylvia Shultz MD Primary Care Prov ider Sin Kern MD Unavailable [phone] Encounter Details Date Type Department Care Team Description 08/22/2022 Systems Admin Report Medical Records [address] [place] [phone] Margaret Blevins PA-C Social History Tobacco Use [...] on filedocumented in this encounter Care Teams Pyrometer Operator Relationship Specialty Start Date End Date Sylvia Shulzt MD [address] [place] [address] PCP - General Internal Medicine 05/16/22 Sin Kern MD [address] [place] [address] Specialist Cardiovascular Disease 05/08/23 documented as of this encounter
--- OUTSIDE RECORDS SUMMARY | 2024-11-22 13:12 | XMS_ITS | Encounter Summary ---
Author Organization [facility] Address [address] [place] [address] Care Team Providers Care Decal Applier Name Role Phone Sylvia Shultz MD Primary Care Prov ider Sin Kern MD Unavailable [phone] Reason for Visit * Reason Onset Date Comments medication problems 02/06/2024 Encounter Details Date Type Department Care Team Description 02/06/2024 Telephone Endocrinology - [address] [address] Shania Jacinto PA-C [address] [place] [phone] medication problems (/) Social History Tobacco Use Types Packs/Day Years [...] Telephone Encounter - Shania Jacinto PA-C - 02/06/2024 2:18 PM EDT Meant to send it to PA team * Telephone Encounter - Shania Jacinto PA-C - 02/06/2024 2:17 PM EDT Can PA be done as this is for diabetes management * Telephone Encounter - Shahrzad Patel - 02/06/2024 2:11 PM EDT Patient is calling back, pharmacy also states that we can do a prior auth for ozempic. Please let her know. * Telephone Encounter - Shahrzad Patel - 02/06/2024 2:00 PM EDT What is the name of the medication patient is having a problem with?: ozempic What is the problem?: patient's insurance does not cover the ozempic, she was asked by Shania to let her know if this happens and she will change the med to another alternative, uses [facility] Is the patient calling about the problem? YES If the patient is not the caller who is? Is this a NEW medication?: How long has the patient been taking this medication? Who prescribed this medication for the patient? Shania Who is patients PCP?: Sylvia Garza Payor: [employer] [facility] / Plan: PPO $20/$35 [place] [id number] / Product Type: PPO [id number] documented in this encounter Plan of Treatment Not on file documented as of this encounter Visit Diagnoses Not on filedocumented in this encounter Care Teams Decal Applier Relationship Specialty Start Date End Date Sylvia Shultz MD [address] [place] [phone] PCP - General Internal Medicine 05/16/22 Sin Kern MD [address] [place] [address] Specialist Cardiovascular Disease 05/08/23 documented as of this encounter
--- OUTSIDE RECORDS SUMMARY | 2024-11-22 13:12 | XMS_ITS | Encounter Summary ---
Author Organization [facility] Address [address] [place] [address] Care Team Providers Care Wireless Retail Manager Name Role Phone Alicja Kelly MD Primary Care Provider Unavail able Noreen Pires MD Primary Care Provider [phone] Sylvia Shultz MD Primary Care Prov ider Sin Kern MD Unavailable [phone] Reason for Visit * Reason Onset Date Comments lab test 11/26/2020 Encounter Details Date Type Department Care Team Description 11/26/2020 Telephone Adult Medicine [facility] [address] [place] [address] Phu Montelongo MD lab test Social History Tobacco Use Types Packs/Day Years [...] Telephone Encounter - Phu Montelongo MD - 12/09/2020 7:20 PM EST Spoke with patient this evening needs a slightly bigger dose of methimazole since TSH is still suppressed. 1/2 tablet Monday, Monday and 1 whole tablet Monday new prescription sent * Telephone Encounter - Sherry Campoverde - 12/07/2020 8:56 AM EST Pt called back to speak to dr montelongo about her lab results * Telephone Encounter - Fay CHAVIS - 11/26/2020 4:29 PM EST Pt aware that dr montelongo is out of the office * Telephone Encounter - Shania Jacinto PA-C - 11/26/2020 3:12 PM EST Patient still hypethyroid. I will hold off any medication changes untiil keyona Em returns. * Telephone Encounter - Fay CHAVIS - 11/26/2020 11:11 AM EST Please review for Dr Montelongo * Telephone Encounter - Nahum Brasher - 11/26/2020 10:53 AM EST Inform patient: ANY URGENT OR ABNORMAL RESULTS WIILL RESULT IN A CALL BACK TO THE PATIENT DIGNA. Type of test: All labs from 11/18/20 Date test was performed: 11/18/20 Where was the test performed: [facility] Who ordered this test?: Dr. Montelongo Is the doctor here today?: NO Can the message wait until the doctor returns?: NO IF PATIENT'S PCP IS NOT IN INSTRUCT PATIENT THAT THEY WILL RECEIVE A CALL BACK WHEN THE PCP IS IN THE OFFICE NEXT. documented in this encounter Plan of Treatment Not on file documented as of this encounter Visit Diagnoses Not on filedocumented in this encounter Care Teams Wireless Retail Manager Relationship Specialty Start Date End Date Alicja Kelly MD PCP - General Internal Medicine 08/07/19 09/16/21 Noreen Pires MD [address] [place] [id number] PCP - General Internal Medicine 09/17/21 05/15/22 Sylvia Shultz MD [address] [place] [id number] PCP - General Internal Medicine 05/16/22 Sin Kern MD [address] [place] [id number] Specialist Cardiovascular Disease 05/08/23 documented as of this encounter
--- OUTSIDE RECORDS SUMMARY | 2024-11-22 13:12 | XMS_ITS | Encounter Summary ---
Author Organization [facility] Address [address] [place] [address] Care Team Providers Care Attorney General Name Role Phone Remigio Jolley MD Primary Care Provider Un available Alicja Kelly MD Primary Care Provider Unavail able Noreen Pires MD Primary Care Provider [phone] Sylvia Shultz MD Primary Care Prov ider Sin Kern MD Unavailable [phone] Encounter Details Date Type Department Care Team Description 05/23/2016 Release of Information Medical Records [address] [place] [id number] Abstract, Provider Social History Tobacco Use Types [...] on filedocumented in this encounter Care Teams Attorney General Relationship Specialty Start Date End Date Remigio Jolley MD PCP - General Internal Medicine 05/12/1608/06 Alicja Kelly MD PCP - General Internal Medicine 08/07/19 09/16/21 Noreen Pires MD [address] [place] [id number] PCP - General Internal Medicine 09/17/21 05/15/22 Sylvia Shultz MD [address] [place] [id number] PCP - General Internal Medicine 05/16/22 Sin Kern MD [address] [place] [id number] Specialist Cardiovascular Disease 05/08/23 documented as of this encounter
--- OUTSIDE RECORDS SUMMARY | 2024-11-22 13:12 | XMS_ITS | Encounter Summary ---
Author Organization [facility] Address [address] [place] [address] Care Team Providers Care Lathe Setup Operator Name Role Phone Sylvia Shultz MD Primary Care Prov ider Sin Kern MD Unavailable [phone] Reason for Visit * Reason Comments E-prescribe Rx Request Encounter Details Date Type Department Care Team Description 08/18/2022 Refill Pulmonology - [place] [address] [phone] Joie Francois APRN [address] [phone] E-prescribe Rx Request Social History Tobacco Use [...] as of this encounter Visit Diagnoses Diagnosis Mild persistent asthma without complication Unspecified asthma documented in this encounter Care Teams Lathe Setup Operator Relationship Specialty Start Date End Date Sylvia Shultz MD [address] [place] [address] PCP - General Internal Medicine 05/16/22 Sin Kern MD [address] [id number] Specialist Cardiovascular Disease 05/08/23 documented as of this encounter
== END 2024-11-22 13:28 | disposition home or self-care (01) ==
LOC: HO.HBST 12:08
PROVIDERS: PCP Internal Medicine; Visit Provider Counselor Mental Health
DX: F43.10 Post-traumatic stress disorder, unspecified (principal); F31.81 Bipolar II disorder
CPT/HCPCS: 90837

== ENCOUNTER → 2024-12-10 13:32 | Outpatient (AMB) | payer OTHER, SELFPAY ==
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
--- OUTSIDE RECORDS SUMMARY | 2024-12-10 16:38 | XMS_ITS | Encounter Summary ---
Author Organization [employer] Address [address] [place] [address] Care Team Providers Care Financial Professional Name Role Phone Sylvia Sandra MD Primary Care Prov ider Reason for Referral * Consultation (Routine) - Pending Review Specialty Diagnoses / Procedures Referred By Vasquez bernal Referred To Contact Ophthalmology Diagnoses Type 2 diabetes mellitus with other specified complication, unspecified whether intermediate insulin use ([facility]) Shania Jacinto PA [address] [place] [address] Phone: tel: fax: Referral ID Status Reason Start Date Expiration Date Visits Requested Visits Authorized [id number] Pending Review Specialty Services Required 11/20/2024 11/20/2025 1 1 * Medications - Pending Review Specialty Diagnoses / Procedures Referred By Vasquez bernal Referred To Contact Diagnoses Type 2 diabetes mellitus with other specified complication, unspecified whether intermediate insulin use ([facility]) Shania Jacinto PA [address] [place] [address] Phone: tel: fax: Referral ID Status Reason Start Date Expiration Date V isits Requested Visits Authorized [id number] Pending Review 1 1 Reason for Visit * Reason Comments Diabetes Encounter Details Date Type Department Care Team ([facility] st Contact Info) Description 11/20/2024 2:45 PM EST Office Visit Endocrinology - [place] [address] [place], [place] [phone] Shania Jacinto PA [address] [place] [address] Type 2 diabetes mellitus with other specified complication, unspecified whether intermediate insulin use (CMS/HCC) (Primary Dx); Microalbuminuria; Hyperthyroidism; Pituitary microadenoma (CMS/HCC) Social History Tobacco Use Types Packs/Day Years Used Date Smoking Tobacco: Former Cigarettes Smokeless Tobacco: Never Tobacco Cessation:Counseling Given: Not Answered Alcohol Use Standard Drinks/Week Comments No 0 (1 standard drink = 0.6 oz pur e alcohol) Comments No Sex and Gender Information Value Date Recorded Sex Assigned at Not on file Legal Sex Female 4:20 PM EST Gender Identity Not on file Sexual Orientation Not on file documented as of this [...] in this encounter Ordered Prescriptions Prescription Sig Dispense Quantity Refills Last Filled Start Date End Date semaglutide (OZEMPIC) 1 mg/dose (4 mg/3 mL) injection penIndications:Type 2 diabetes mellitus with other specified complication, unspecified whether intermediate insulin use (CMS/HCC) Inject 1 mg under the skin every 7 (seven) days. 9 mL 1 11/20/2024 methIMAzole (TAPAZOLE) 10 mg tablet Take 1 tablet (10 mg total) by mouth 1 (one) time each day. 90 tablet 3 11/20/2024 documented in this encounter Progress Notes * Radha Aquino [place] - 11/20/2024 2:45 PM EST FSBS [...] Morbid obesity with BMI of 50.0-59.9, adult [place] 08/29/2024 Abnormal echocardiogram 08/02/2023 Type 2 diabetes mellitus with other specified complication ([facility] 06/26/2023 Microalbuminuria 06/26/2023 Pure hypercholesterolemia 12/09/2022 Bipolar 2 disorder ([facility] 12/08/2022 Obstructive sleep apnea hypopnea, moderate 06/14/2022 Nocturnal hypoxemia 01/10/2022 Pituitary microadenoma ([facility] 11/12/2021 Elevated prolactin level 11/12/2021 Suicidal ideations [...] mellitus with other specified complication, unspecified whether buttermilk drier operator insulin use (CMS/HCC) 2. Microalbuminuria 3. Hyperthyroidism [...] mellitus with other specified complication, unspecified whether buttermilk drier operator insulin use (CMS/HCC) (Primary) - POC glucose manually resulted - [...] 1:00 PM EDT Office Visit Pulmonolgy - [place] [address] [facility] [address] [place] [address] Joie Francois NP [address] [address] 01/28/2025 8:45 AM EDT Office Visit Obstetrics and Gynecology [address] [phone] Mirlande Norton, CN [address] [place], [place] 07/03/2025 7:30 AM EDT Office Visit Adult [facility] - [address] [phone] Sylvia Sandra MD [address] [place] [address] Scheduled Orders Name Type Priority Associated Diagnoses Orde r Schedule Hemoglobin A1c Lab Routine Type 2 diabetes mellitus with other specified complication, unspecified whether intermediate insulin use ([facility]) 1 Occurrences starting 11/20/2024 until 11/20/2025 Basic metabolic panel Lab Routine Type 2 diabetes mellitus with other specified complication, unspecified whether intermediate insulin use ([facility]) 1 Occurrences starting 11/20/2024 until 11/20/2025 Lipid panel with reflex to direct LDL Lab Routine Type 2 diabetes mellitus with other specified complication, unspecified whether intermediate insulin use ([facility]) 1 Occurrences starting 11/20/2024 until 11/20/2025 Microalbumin creatinine urine ratio Lab Routine Type 2 diabetes mellitus with other specified complication, unspecified whether buttermilk drier operator insulin use ([facility]) 1 Occurrences starting 11/20/2024 until 11/20/2025 Thyroid stimulating hormone with reflex to free t4 and free t3 Lab Routine Type 2 diabetes mellitus with other specified complication, unspecified whether intermediate insulin use ([facility]) 1 Occurrences starting 11/20/2024 until 11/20/2025 CBC and differential Lab Routine Type 2 diabetes mellitus with other specified complication, unspecified whether intermediate insulin use ([facility]) 1 Occurrences starting 11/20/2024 until 11/20/2025 Prolactin Lab Routine Pituitary microadenoma ([facility]) 1 Occurrences starting 11/20/2024 until 11/20/2025 Scheduled Referrals Name Type Priority Associated Diagnoses Order Schedule Ambulatory referral to Ophthalmology Outpatient Referral Routine Type 2 diabetes mellitus with other specified complication, unspecified whether buttermilk drier operator insulin use ([facility]) 1 Occurrences starting 11/20/2024 until 11/20/2025 documented as of this encounter Procedures Procedure Name Priority Date/Time Associated Diagnosis Comments POC GLUCOSE Routine 11/20/2024 2:54 PM EST Type 2 diabetes mellitus with other specified complication, unspecified whether buttermilk drier operator insulin use ([facility]) documented in this encounter Results * POC glucose manually resulted (11/20/2024 2:54 PM EST) Glucose POC 192 mg/dL Comment:non-fasting Blood Capillary blood specimen / Unknown 11/20/2024 2:54 PM EST Shania KHANNA POINT OF CARE TEST ENTER/ED IT ORDERABLES Final Result documented in this encounter Visit Diagnoses Diagnosis Type 2 diabetes mellitus with other specified complication, unspecified whether intermediate insulin use ([facility])- Primary Microalbuminuria Proteinuria Hyperthyroidism Thyrotoxicosis without mention of goiter or other cause, without mention of thyrotoxic crisis or storm Pituitary microadenoma ([facility]) Benign neoplasm of pituitary gland and craniopharyngeal [...] documented as of this encounter Care Teams Financial Professional Relationship Specialty Start Date End Date Sylvia Sandra MD [address] [place] [id number] PCP - General Internal Medicine 05/16/22 documented as of this encounter
--- OUTSIDE RECORDS SUMMARY | 2024-12-10 16:38 | XMS_ITS | Encounter Summary ---
Author Organization [facility] Address [address] [place] [address] Care Team Providers Care Mortgage Collector Name Role Phone Sylvia Sandra MD Primary Care Prov ider Reason for Referral * Consultation (Routine) - Pending Review Specialty Diagnoses / Procedures Referred By Contmorales t Referred To Contact Endocrinology Diagnoses Patient desires Mirlande Norton CNM [address] [place] [address] Phone: tel: fax: Referral ID Status Reason Start Date Expiration Date Visits Requested Visits Authorized [id number] Pending Review Specialty Services Required 11/15/2024 11/15/2025 1 1 Reason for Visit * Reason Comments Menstrual Problem Encounter Details Date Type Department Care Team (Late st Contact Info) Description 11/15/2024 2:45 PM EST Office Visit Obstetrics and Gynecology - [address] [phone] Mirlande Norton CNM [address] [place], [place] Amenorrhea (Primary Dx); Urine test negative; Hyperthyroidism; Patient desires ; Obesity, morbid (CMS/HCC); Type 2 diabetes mellitus with other specified complication, unspecified whether buttermaker continuous churn insulin use (CMS/[facility]) Social History Tobacco Use Types Packs/Day Years [...] Refills Last Filled Start Date End Date medroxyPROGESTERone (PROVERA) 10 mg tablet Take 1 tablet (10 mg total) by mouth 1 (one) time each day for 10 days. 10 tablet 3 11/15/2024 documented in this encounter Progress Notes * [...] discomfort : No dysuria, frequency or incontinence MINE GEOLOGIST: No abnormal vaginal discharge. PAST MEDICAL HISTORY: OB History Para Term AB Living 1 1 0 1 SAB IAB Ectopic Multiple Live Births 1 # Outcome Date GA Lbr Ranjan/2nd Weight Sex Type Anes PTL Lv 1 2011 F Vag-Spont ND Patient Active Problem List [...] 1:00 PM EDT Office Visit Pulmonolgy - [place] [address] [facility] [address] [place] [address] Joie Francois NP 175 [facility] [address] [place] [address] 01/28/2025 8:45 AM EDT Office Visit Obstetrics and Gynecology - [address] [phone] Mirlande Norton CNM [address] [place] [address] 07/03/2025 7:30 AM EDT Office Visit [facility] - [address] [phone] Sylvia Sandra MD [address] [place] [address] Scheduled Orders Name Type Priority Associated Diagnoses [...] Unknown 11/15/2024 3:07 PM EST Mirlande Norton CN POINT OF CARE TEST ENTER/EDIT ORDERABLES Final Result documented in this encounter Visit Diagnoses Diagnosis Amenorrhea- Primary Absence of menstruation Urine test negative Hyperthyroidism Thyrotoxicosis without mention of goiter or other cause, without mention of thyrotoxic crisis or storm Patient desires Obesity, morbid (CMS/HCC) Morbid obesity Type 2 diabetes mellitus with other specified complication, unspecified whether senior living insulin use ([facility]) documented in this encounter Historical Medications * This list may reflect changes made after this encounter. lamoTRIgine (LaMICtal) 200 mg tablet Take 1 [...] 10/01/2024 added in this encounter Care Teams Mortgage Collector Relationship Specialty Start Date End Date Sylvai Sandra MD [address] [place] [id number] PCP - General Internal Medicine 05/16/22 documented as of this encounter
--- OUTSIDE RECORDS SUMMARY | 2024-12-10 16:38 | XMS_ITS | Clinical Summary ---
Author Organization [facility] Address [address] [place] [address] Care Team Providers Care Digital Court Reporter Name Role Phone Sylvia Sadnra MD Primary Care Prov ider Allergies Active Allergy Reactions Criticality Noted Date Comments Other Low 03/30/2022 Seasonal Allergies Penicillins Rash 05/19/2016 Shrimp Nausea And Vomiting 07/04/2024 GI upset Medications prazosin (MINIPRESS) 1 mg capsule Take 1 [...] by mouth 1 (one) time each day. 10/01/20 24 Active melatonin [address] ONE (1) TABLET IN MOUTH AND ALLOW TO DISSOLVE AT BEDTIME 10/03/20 24 Active hydrOXYzine HCL (ATARAX) 50 mg tablet Take 1 tablet (50 mg total) by mouth at bedtime as needed. at bedtime 06/28/20 24 Active lamoTRIgine (LaMICtal) 200 mg tablet Take 1 tablet (200 mg total) by mouth 1 (one) time each day. 10/28/19 25 Active medroxyPROGESTERon e (PROVERA) 10 mg tablet Take 1 tablet (10 mg total) by mouth 1 (one) time each day for 10 days. 10 tablet 3 11/15/19 25 Active methIMAzole (TAPAZOLE) 10 mg tablet Take 1 tablet (10 mg total) by mouth 1 (one) time each day. 90 tablet 3 11/20/19 25 Active semaglutide (OZEMPIC) 1 mg/dose (4 mg/3 mL) injection penIndications:Typ e 2 diabetes mellitus with other specified complication, unspecified whether shelter insulin use ([facility]) Inject 1 mg under the skin every 7 (seven) days. 9 mL 1 11/20/19 25 Active blood sugar diagnostic (FreeStyle Lite Strips) test strip Use to check BS daily 04/23/20 24 025 Discontinu ed(Alterna te therapy) FREESTYLE LANCETS MISC Use to check BS daily 04/23/20 24 025 Discontinu ed(Alterna te therapy) lamoTRIgine (LaMICtal) 100 mg tablet TAKE 2 TABLETS BY MOUTH EVERY DAY 025 Discontinu ed(Duplica te order) methIMAzole (TAPAZOLE) 10 mg tablet TAKE 1 TABLET BY MOUTH EVERY DAY 025 Discontinu ed(Reorder ) blood-glucose meter (FREESTYLE LITE METER MISC) Blood Glucose Monitoring Suppl (FreeStyle Lite) Device Patient sig: Use to check BS daily 06/13/20 23 025 Discontinu ed(Alterna te therapy) hydrOXYzine pamoate (VISTARIL) 50 mg capsule Take 1 Capsule by mouth at bedtime as needed. 025 Discontinu ed(Duplica te order) beclomethasone dipropionate (Qvar RediHaler) 40 mcg/actuation HFA aerosol breath activated inhalerIndications :Mild persistent asthma without complication Inhale 2 puffs by mouth 1 (one) time each day. 10.6 g 3 10/04/20 24 025 Discontinu ed(Discont inued by another clinician) semaglutide (Ozempic) 0.25 mg or 0.5 mg (2 mg/3 mL) injection pen INJECT 0.5 MG INTO THE SKIN EVERY 7 DAYS. 3 mL 10/28/19 25 025 Discontinu ed(Formula ry change) Active Problems Problem Noted Date Diagnosed Date Morbid obesity with BMI of 50.0-59.9, adult 08/16 Abnormal echocardiogram 08/02/2023 Type 2 diabetes mellitus with other specified co mplication 06/26/2023 Microalbuminuria 06/26/2023 Pure hypercholesterolemia 12/09/2022 Bipolar 2 disorder 12/08/2022 Obstructive sleep apnea hypopnea, moderate 06/14 [place] (08/29/2024[place] [facility] [place] sleep study: 05/21/2022 showed moderate sleep apnea which AHI of 23. Her AHI was 33. Her REM AHI was 52.4. Patient average saturation was 91% is low saturation was 76% she spent 18.6 minutes below 89%. There was 38 periodic limb movements. [facility] Treatment Polysomnogram: Date 08/30/2022; Wt 336#; BMI 51.09; SE 45%; SM 47%; REM 0%; CPAP @ 12: AHI 4, REM AHI -, Central apneas 0; Obstructive apneas 0; Mixed apneas 0; hypopneas 14; average oxygen saturation 93% (lowest 88%); PL4 Nocturnal hypoxemia 01/10/2022 Overview (08/29/2024): [facility] Home sleep test 12/30/2021; weight 320; BMI [...] 2:45 PM EST Office Visit Endocrinology - [address] [phone] Shania Jacinto PA Type 2 diabetes mellitus with other specified complication, unspecified whether termite treater insulin use (CMS/HCC) (Primary Dx); Microalbuminuria; Hyperthyroidism; Pituitary microadenoma (CMS/HCC) 11/15/2024 2:45 PM EST Office Visit Obstetrics and Gynecology - [address] [phone] Mirlande Norton CNM Amenorrhea (Primary Dx); Urine test negative; Hyperthyroidism; Patient desires ; Obesity, morbid (CMS/HCC); Type 2 diabetes mellitus with other specified complication, unspecified whether shelter insulin use (CMS/HCC) 10/18/2024 Telephone Pulmonolgy [facility] 175 [facility] [address] [place] [address] Jenna Tran MA DME request (CPAP supply order faxed to [facility]. Fax confirmation received. /) 10/04/2024 8:30 AM EST Office Visit Pulmonolgy [facility] [address] [facility] [address] [place] [phone] Joie Francois NP Obstructive sleep apnea hypopnea, moderate (Primary Dx); Nocturnal hypoxemia; Mild persistent asthma without complication 10/02/2024 Telephone Endocrinology - [place] [address] [place] [address] Shania Jacinto PA Med Change Request 09/16/2024 Telephone Pulmonolgy - [place] 175 [facility] [address] [place] [address] Joie Francois NP Forms/questionnaires from [...] with BMI of 5 0.0-59.9, adult ([facility]) 08/16/2019 DX:Morbid obesity with BMI o f 50.0-59.9, adult ([facility]) Diabetes type 2, controlled ([facility]) Family History Medical History Relation [...] on file Sexual Orientation Not on file Obstetrics History Para Term [...] 1:00 PM EDT Office Visit Pulmonolgy - [place] [address] [facility] [address] [place] [phone] Joie Francois NP 175 [facility] 200 [place] [address] 01/28/2025 8:45 AM EDT Office Visit Obstetrics and Gynecology - [address] [phone] Mirlande Norton, [address] 07/03/2025 7:30 AM EDT Office Visit Adult Medicine [facility] - [address] [phone] Sylvia Sandra MD [address] [place] [address] Health Maintenance Due Date Last Done Comments Diabetes: Annual Foot Exam 02/18/1992 Diabetes: Annual Retina Eye Exam 02/18/1992 Hepatitis B Vaccines (1 of 3 - 19+ 3-dose series) 2001 Pneumococcal Vaccine: Pediatrics (0 to 5 Years) and At-Risk Patients (6 to 64 Years) (1 of 2 - PCV) 2001 HIV Screening 11/23/2020 Hepatitis C Screening [...] patient's age to complete this topic Meningococcal B Vacine Aged Out No lo nger eligible based on patient's age to complete [...] mellitus with other specified complication, unspecified whether termite treater insulin use ([facility]) POC , URINE DIAGNOSTIC Routine [...] CARE TEST ENTER/ED IT ORDERABLES Final Result * POC , urine manually resulted (11/15/2024 3:07 PM EST) HCG, Ur POC Negative Negative POC hCG Int QC Pass? Yes Yes Urine Urine specimen obtained by clean catch procedure / Unknown 11/15/2024 3:07 PM EST Mirlande Norton CNM POINT OF CARE TEST ENTER/EDIT ORDERABLES Final Result * Hemoglobin A1c (07/04/2024) Hemoglobin A1C 6.1 <=6.5 % Blood Venous blood specimen / Unknown Historical Provider LAB BLOOD ORDERABLES Teresita l Result * Urine Albumin Creatinine Ratio (06/13/2023) [facility] Urine Albumin Creatinine Ratio Abstracted Result [facility] Final Result * Annual BMP Blood Test (06/13/2023) [facility] Annual BMP Blood Test Abstracted Result [facility] Final Result * (ABNORMAL) Lipid panel (06/13/2023) [facility] LDL/HDL Ratio 5(A) 0 - 4 Triglycerides 530(A) 0 - 150 mg/dL Cholesterol 251(A) 0 - 200 mg/dL HDL 55 >=40 mg/dL Blood Venous blood specimen / Unknown Result [facility] LAB BLOOD ORDERABLES Teresita l Result * Depression Screening (12/08/2022) [facility] Depression Screening Abstracted Result [facility] Final Result * SCREENING MAMMOGRAPHY BI 2-VIEW BREAST INC [...] Low (<15%) Cydney Edward CNM IMG XR PROCEDURES F inal Result * Cervical Cancer Screening: HPV (03/30/2022) Cervical Cancer Screening: HPV Negative, Abstracted Historical Provider HEALTH MAINTENANCE Final Result from Last 3 Months or Most Recently Relevant to Health Maintenance Insurance [employer] [facility] Care Teams Digital Court Reporter Relationship Specialty Start Date End Date Sylvia Sandra MD [address] [place] [id number] PCP - General Internal Medicine 05/16/22
== END ==
LOC: HO.HBST 13:32
PROVIDERS: PCP Internal Medicine; Visit Provider Counselor Mental Health
DX: F31.81 Bipolar II disorder (principal); F43.10 Post-traumatic stress disorder, unspecified
CPT/HCPCS: 90834

== ENCOUNTER → 2024-12-10 13:32 | Outpatient (BNVA) | payer OTHER, SELFPAY | PROVIDERS: PCP Internal Medicine; Visit Provider Counselor Mental Health ==

== ENCOUNTER 2024-12-31 13:50 | Outpatient (AMB) | payer OTHER, SELFPAY ==
--- NOTE | 2024-12-31 13:00 | MHC.WMTHER ---
Intake Intake Visit Reasons: VIDEO BH F/U Allergies Penicillins [PENICILLINS] Allergy (Unknown, Verified 10/23/24 13:20) UNKNOWN shrimp Allergy (Verified 10/23/24 13:20) Hives [facility] Medical History Insomnia Type II diabetes mellitus Mild persistent asthma Lumbar spinal stenosis Graves' orbitopathy Palpitations Degenerative joint disease Elevated prolactin level Pituitary microadenoma Hypercholesteremia Sleep apnea Hyperthyroidism Surgical History No pertinent past surgical history Family History Mother No problems noted. Father Diabetes Brother No problems noted. Social History Household Members: Spouse Are you a primary care clinician to a significant other at home: No Do you presently have visiting nurse or other home services: No Alcohol intake: current Alcohol intake frequency: holidays/special occasions only Patient Tobacco Use Status: Former Tobacco user Tobacco use type: Cigarette Current occupational status: employed Current occupation: [employer] Behavioral Health Assessment Weight Management Therapy Therapy Notes Details Subjective: The patient reports ongoing financial issues that are impacting her ability to access shakes, a gaffney component of her meal plan. Additionally, she shares that her mental health has been unstable, and she is currently experiencing symptoms of depression. Objective: The patient presents for a follow-up visit via Telehealth. Throughout the session, supportive and reflective listening was utilized to explore the patient?s sources of stress, functioning challenges, and overall progress. We discussed non-scale victories and her progress with habit-building, highlighting areas of growth despite the challenges. We also focused on problem-solving for additional stressors, such as managing medical bills, filing taxes, and addressing work-related goals. Resources for assistance with these issues were provided. We reflected on the patient's self-care practices as coping skills and discussed strategies to prioritize movement and meal scheduling, even when she?s not feeling at her best. We addressed the tendency toward ?[id number]? thinking and worked on setting realistic goals, emphasizing the importance of not setting the bar too high. Reminded the patient to follow up with her current therapist regarding the requested behavioral health form. Assessment/Response: Mental status: Depressed, tired, and experiencing low energy with some stress. Mild functional impairment is affecting her work performance, but she remains engaged in the process. Risk reported/identified: No immediate risks or safety concerns identified. The patient responded well to the therapeutic modalities used, including reflective listening and problem-solving techniques. She appeared receptive to exploring realistic goal-setting and reframing her mindset, which will be important for continuing progress in managing stress and following the weight-loss program. Food/Weight/Diet Expectations of change Initial goal to lose 10% of your weight before surgery, which is about 32lbs. Ultimate weight goal: 292lbs before surgery PT started the program on 07/08/2024 at 324Lbs, most recent weight: 322Lbs Weight as of 11/22/2024: 328Lbs weight as of 12/10/2024: 326Lbs. Weight as of 12/29/2024: 314Lbs PT is implementing the following: Current meal plan: 3 shakes and 2 meals. Exercise plan: 5-7 days at week. 30-40min in rowing machine, weights, plank and squads. (not as consistent the last week) Scale: Yes. Assessment & Plan Assessment & Plan (1) PTSD (post-traumatic stress disorder): Code(s): F43.10 - Post-traumatic stress disorder, unspecified (2) Bipolar 2 disorder, major depressive episode: Code(s): F31.81 - Bipolar II disorder Plan The patient will continue meeting regularly with her outpatient therapist for ongoing mental health treatment. PT will follow up in 1 month to continue supporting her weight-loss journey and address any barriers to progress. Once the behavioral health form is received from her therapist, the patient will be reassessed for final behavioral health clearance. Next ruy: 01/27/2025 at 1pm, Video Telehealth Telehealth [facility]health [facility] Location of provider rendering services: practice address Location of patient: address on file Patient Identification confirmed using: Name, : Yes Telehealth method: video Patient verbally consented to treatment: Yes Patient verbally consented to billing insurance company: Yes Patient informed of any privacy concerns related to visit: Yes Minutes spent on Phone/Video with Pt.: 50 Coding Level of Care Code Established Pt Tele Psytx 45 mins (50410) Patient Type Established Diagnoses PTSD (post-traumatic stress disorder) F43.10 Bipolar 2 disorder, major depressive episode F31.81 Time Spent (min) 50
--- OUTSIDE RECORDS SUMMARY | 2024-12-31 16:21 | XMS_ITS | Clinical Summary ---
Author Organization [facility] [place] Address [address] [place] [address] Care Team Providers Care Podiatry Professor Name Role Phone Sylvia Sandra MD Primary [...] for 10 days. 10 tablet 3 5 Active methIMAzole (TAPAZOLE) 10 mg tablet Take 1 tablet (10 mg total) by mouth 1 (one) time each day. 90 tablet 3 5 Active semaglutide (OZEMPIC) 1 mg/dose (4 mg/3 mL) injection penIndications:Typ e 2 diabetes mellitus with other specified complication, unspecified whether chcf insulin use ([facility]) Inject 1 mg under the skin every 7 (seven) days. 9 mL 1 5 Active Active Problems Problem Noted Date Diagnosed Date Morbid obesity with BMI of 50.0-59.9, adult 08/16 Abnormal echocardiogram 08/02/2023 Type 2 diabetes mellitus with other specified co mplication 06/26/2023 Microalbuminuria 06/26/2023 Pure hypercholesterolemia 12/09/2022 Bipolar 2 disorder 12/08/2022 Obstructive sleep apnea hypopnea, moderate 06/14 Overview (08/29/2024): [facility] Diagnostic sleep study: 05/21/2022 showed moderate sleep apnea which AHI of 23. Her AHI was 33. Her REM AHI was 52.4. Patient average saturation was 91% is low saturation was 76% she spent 18.6 minutes below 89%. There was [address] [facility] Treatment Polysomnogram: Date 08/30/2022; Wt 336#; BMI 51.09; SE 45%; SM 47%; REM 0%; CPAP @ 12: AHI 4, REM AHI -, Central apneas 0; Obstructive apneas 0; Mixed apneas 0; hypopneas 14; average oxygen saturation 93% (lowest 88%); PL4 Nocturnal hypoxemia 01/10/2022 Overview (08/29/2024): [facility] Home sleep test 12/30/2021; weight [...] 2:45 PM EST Office Visit Endocrinology - [address] [phone] Shania Jacinto PA Type 2 diabetes mellitus with other specified complication, unspecified whether termite treater insulin use (CMS/HCC) (Primary Dx); Microalbuminuria; Hyperthyroidism; Pituitary microadenoma (CMS/HCC) 11/15/2024 2:45 PM EST Office Visit Obstetrics and Gynecology - [address] [phone] Mirlande Norton CNM Amenorrhea (Primary Dx); Urine test negative; Hyperthyroidism; Patient desires ; Obesity, morbid (CMS/HCC); Type 2 diabetes mellitus with other specified complication, unspecified whether chcf insulin use (CMS/HCC) 10/18/2024 Telephone Pulmonolgy - [place] [address] [facility] [address] [place] [address] Jenna Tran MA DME request (CPAP supply order faxed to [facility]. Fax confirmation received. /) 10/04/2024 8:30 AM EST Office Visit Pulmongy [facility] [address] [facility] [address] [place] [address] Joie Francois NP Obstructive sleep apnea hypopnea, moderate (Primary Dx); Nocturnal hypoxemia; Mild persistent asthma without complication 10/02/2024 Telephone Endocrinology [facility] [address] [place] [phone] Shania Jacinto PA Med Change Request from Last 3 Months Immunizations Name Administration [...] obesity with BMI of 5 0.0-59.9, adult ([facility]) 08/16/2019 DX:Morbid obesity with BMI o f 50.0-59.9, adult ([facility]) Diabetes type 2, controlled ([facility]) Family History Medical History Relation Name Comments [...] 1:00 PM EDT Office Visit Pulmonolgy - [place] [address] [facility] [address] [place] [phone] Joie Francois NP [address] [place] [address] [place] [address] 01/28/2025 8:45 AM EDT Office Visit Obstetrics and Gynecology [address] [phone] Mirlande Norton, [address] 07/03/2025 7:30 AM EDT Office Visit Adult Medicine [address] [phone] Sylvia Sandra MD [address] [place] [address] Health Maintenance Due Date Last Done Comments [...] complication, unspecified whether termite treater insulin use ([facility]) POC , URINE DIAGNOSTIC Routine 11/15/2024 3:07 [...] ORDERABLES Final Result * Hemoglobin A1c (07/04/2024) [facility] Hemoglobin A1C 6.1 <=6.5 % Blood Venous blood specimen / [facility]OD ORDERABLES Teresita l Result * Urine Albumin Creatinine Ratio (06/13/2023) [facility] Urine Albumin Creatinine Ratio Abstracted Result [facility] HEALTH MAINTENANCE Final Result * Annual BMP Blood Test (06/13/2023) [facility] Annual BMP Blood Test Abstracted Result [facility] Final Result * (ABNORMAL) Lipid panel (06/13/2023) [facility] LDL/HDL Ratio 5(A) 0 - 4 Triglycerides 530(A) 0 - 150 mg/dL Cholesterol 251(A) 0 - 200 mg/dL HDL 55 >=40 mg/dL Blood Venous blood specimen / Unknown Result [facility] BLOOD ORDERABLES Teresita l Result * Depression Screening (12/08/2022) [facility] Depression Screening Abstracted Result [facility] Final Result * SCREENING MAMMOGRAPHY BI 2-VIEW [...] % Breast cancer risk category Low (<15%) Kady Cheyanne CNM IMG XR PROCEDURES F inal Result * Cervical Cancer Screening: HPV (03/30/2022) Cervical Cancer Screening: HPV Negative, Abstracted Historical Provider HEALTH MAINTENANCE Final Result from Last 3 Months or Most Recently Relevant to Health Maintenance Insurance [employer] [facility] Care Teams Podiatry Professor Relationship Specialty Start Date End Date Sylvia Sandra MD [address] [place] [id number] PCP - General Internal Medicine 05/16/22
== END 2024-12-31 14:03 | disposition home or self-care (01) ==
LOC: HO.HBST 13:50
PROVIDERS: PCP Internal Medicine; Visit Provider Counselor Mental Health
DX: F43.10 Post-traumatic stress disorder, unspecified (principal); F31.81 Bipolar II disorder
CPT/HCPCS: 90834